=== PATIENT | male | born 1960 | race Two or more races ===

== ENCOUNTER 2019-01-28 18:22 | Inpatient (IN) | payer OTHER ==
[~2019-01-28] VITALS: Ht 172.7 cm; Wt 122.3 kg
[2019-01-28 18:52] LABS: BASOPHILS % (AUTO) 0.2 % (0.0-2.0); EOSINOPHILS % (AUTO) 0.8 % (0.0-6.0); HEMATOCRIT 50 % (39-51); HEMOGLOBIN 16.6 g/dL (13.5-17.5); LYMPHOCYTES # (AUTO) 0.6 /CMM (0.8-4.8); LYMPHOCYTES % (AUTO) 3.3 % (20.0-44.0); MEAN CORPUSCULAR HGB CONC 34 g/dl (31.0-36.0); MEAN CORPUSCULAR VOLUME 83 fL (80-96); MONOCYTES # (AUTO) 1.6 /CMM (0.1-1.30); MONOCYTES % (AUTO) 8.6 % (2.0-12.0); NEUTROPHILS # (AUTO) 16.1 /CMM (1.8-8.9); NEUTROPHILS % (AUTO) 87.1 % (43.0-81.0); PLATELET COUNT (AUTO) 244 /CMM (150-450); RED BLOOD CELL COUNT(AUTO) 5.99 MIL/uL (4.5-6.0); WHITE BLOOD COUNT (AUTO) 18.5 K/uL (4.3-11.0)
[2019-01-28 18:54] LABS: ABG OXYGEN SATURATION 92.9 % (92.0-98.5); ABG PCO2 25.1 mmHg (35.0-45.0); ABG PH 7.498 (7.350-7.450); ABG PO2 59.6 mmHg (75.0-100.0); AaDO2 139.2 mmHg; COHb 0.6 % (0.5-1.5); MetHb 0.2 % (0.0-1.5); O2Hb 92.2 % (94.0-97.0); SITE, ABG Left Radial; VENT MODE, BG Nasal Cannula
[2019-01-28 19:18] LABS: CALCIUM, SERUM 8.3 mg/dL (8.5-10.1); CARBON DIOXIDE 24 mmol/L (21-32); CHLORIDE 90 mmol/L (98-107); CREATININE 1.9 mg/dL (0.6-1.3); SODIUM SERUM 126 mmol/L (136-145); UREA NITROGEN, BLOOD 31 mg/dL (7-18)
[2019-01-28 19:20] LABS: GLUCOSE 465 mg/dL (74-106)
[2019-01-28 19:27] LABS: ALANINE AMINOTRANSFERASE 54 U/L (12-78); ALKALINE PHOSPHATASE 104 U/L (46-116); ASPARTATE AMINOTRANSFERASE 54 U/L (15-37); BILIRUBIN,DIRECT 0.3 mg/dL (0.0-0.2); BILIRUBIN,TOTAL 0.7 mg/dL (0.2-1.0); TOTAL PROTEIN, SERUM 7.7 g/dL (6.4-8.2)
[2019-01-28] MEDS ORDERED: VANCOMYCIN 1 GM in IV D5W 250 ML IV ONE (19:30)
[2019-01-28] MEDS ORDERED: PIPERACILLIN /TAZOBACTAM 2.25 G in IV D5W 50 ML IV ONE (19:30)
[2019-01-28] MEDS ORDERED: VANCOMYCIN 500 MG VIAL ONE (19:46)
[2019-01-28] MEDS ORDERED: VANCOMYCIN 1 GM VIAL ONE (19:49)
[2019-01-28] MEDS ORDERED: IV NS 0.9% 1,000 ML BAG IV ONE (20:00)
[2019-01-28] MEDS ORDERED: PIPERACILLIN /TAZOBACTAM 2.25 G VIAL IV ONE (20:02)
[2019-01-28 21:05] LABS: MAGNESIUM 3.1 mg/dL (1.8-2.4)
[2019-01-28] MEDS ORDERED: *INSULIN REGULAR(HUMULIN R)HUM 100 UNIT/ML VIAL SQ PRN (22:00)
[2019-01-28] MEDS ORDERED: Z GUARD REMEDY 2 OZ OINT TP PRN (22:00)
[2019-01-28] MEDS ORDERED: MAGNESIUM HYDROXIDE 30 ML UDC PO PRN (22:00)
[2019-01-28] MEDS ORDERED: DEXTROSE 50%-WATER 50 ML DISP.SYRIN IV PRN (22:00)
[2019-01-28] MEDS ORDERED: ZOLPIDEM TARTRATE 5 MG TABLET PO PRN (22:00)
[2019-01-28 22:30] VITALS: BP 153/75
[2019-01-28] MEDS ORDERED: ENOXAPARIN SODIUM 40 MG/0.4 ML DISP.SYRIN SQ ONE (22:30)
[2019-01-28] MEDS: IV NS 0.9% 1,000 ML IV PRN (22:48)
[2019-01-28] MEDS: BLOOD SUGAR DIAGNOSTIC 1 EACH STRIP IN SCH (22:58)
[2019-01-28] MEDS: INSULIN REGULAR, HUMAN 100 UNIT/ML 3 ML VIAL SQ PRN (23:01)
[2019-01-28] MEDS ORDERED: PIPERACILLIN /TAZOBACTAM 3.375 G VIAL IV ONE (23:11)
[2019-01-28] MEDS: PIPERACILLIN /TAZOBACTAM 3.375 G in IV D5W 50 ML IV SCH (23:14)
[2019-01-28] MEDS: ACETAMINOPHEN 325 MG TABLET PO PRN (23:14)
[2019-01-28] MEDS ORDERED: INSULIN GLARGINE, 100 UNIT/ML CARTRIDGE SQ ONE ×2 (23:30→23:56)
[2019-01-29] MEDS: PIPERACILLIN /TAZOBACTAM 3.375 G in IV D5W 50 ML IV SCH ×4 (00:03→17:11)
[2019-01-29 00:10] LABS: CALCIUM, SERUM 7.3 mg/dL (8.5-10.1); CREATININE 1.5 mg/dL (0.6-1.3); POTASSIUM 3.7 mmol/L (3.5-5.1)
[2019-01-29 04:00] VITALS: BP 148/80
[2019-01-29] MEDS: IV NS 0.9% 1,000 ML IV PRN ×2 (05:32→17:21)
[2019-01-29] MEDS ORDERED: PIPERACILLIN /TAZOBACTAM 3.375 G VIAL IV ONE (05:38)
[2019-01-29] MEDS ORDERED: FEE PK DOSING 1 MIN EA MC ONE (06:19)
[2019-01-29 07:21] LABS: BASOPHILS % (AUTO) 0.1 % (0.0-2.0); EOSINOPHILS % (AUTO) 0.6 % (0.0-6.0); HEMATOCRIT 45 % (39-51); HEMOGLOBIN 15.4 g/dL (13.5-17.5); LYMPHOCYTES # (AUTO) 0.4 /CMM (0.8-4.8); LYMPHOCYTES % (AUTO) 2.6 % (20.0-44.0); MEAN CORPUSCULAR HGB CONC 34 g/dl (31.0-36.0); MEAN CORPUSCULAR VOLUME 82 fL (80-96); MONOCYTES # (AUTO) 1.7 /CMM (0.1-1.30); MONOCYTES % (AUTO) 10.5 % (2.0-12.0); NEUTROPHILS # (AUTO) 13.9 /CMM (1.8-8.9); NEUTROPHILS % (AUTO) 86.2 % (43.0-81.0); PLATELET COUNT (AUTO) 208 /CMM (150-450); RED BLOOD CELL COUNT(AUTO) 5.48 MIL/uL (4.5-6.0); WHITE BLOOD COUNT (AUTO) 16.1 K/uL (4.3-11.0)
[2019-01-29 07:24] LABS: CALCIUM, SERUM 7.4 mg/dL (8.5-10.1); CREATININE 1.6 mg/dL (0.6-1.3); MAGNESIUM 2.9 mg/dL (1.8-2.4); PHOSPHORUS 2.1 mg/dL (2.5-4.9); POTASSIUM 3.9 mmol/L (3.5-5.1)
[2019-01-29 08:00] VITALS: BP 150/78
[2019-01-29] MEDS ORDERED: VANCOMYCIN 500 MG in IV D5W 100ml IV ONE (08:00)
[2019-01-29] MEDS ORDERED: VANCOMYCIN HCL 1 GM in IV D5W 260 ML IV SCH (08:00)
[2019-01-29] MEDS: BLOOD SUGAR DIAGNOSTIC 1 EACH STRIP IN SCH ×4 (08:24→22:05)
[2019-01-29] MEDS: INSULIN REGULAR, HUMAN 100 UNIT/ML 3 ML VIAL SQ PRN ×4 (08:30→22:08)
[2019-01-29] MEDS: ACETAMINOPHEN 325 MG TABLET PO PRN ×2 (08:57→15:41)
[2019-01-29] MEDS ORDERED: K PHOS NEUTRAL 250 MG TABLET PO ONE (11:00)
[2019-01-29 12:00] VITALS: BP 132/69
[2019-01-29] MEDS ORDERED: ENOXAPARIN SODIUM 30 MG/0.3 ML DISP.SYRIN SQ SCH (12:00)
[2019-01-29] MEDS: VANCOMYCIN 1.25 GM in IV D5W 250 ML IV SCH ×2 (14:30→22:07)
[2019-01-29 16:00] VITALS: BP 140/70
[2019-01-29 20:00] VITALS: BP 144/90
[2019-01-30] VITALS: BP 134/65
[2019-01-30] MEDS: PIPERACILLIN /TAZOBACTAM 3.375 G in IV D5W 50 ML IV SCH ×5 (00:29→23:06)
[2019-01-30] MEDS: ACETAMINOPHEN 325 MG TABLET PO PRN ×2 (01:19→16:33)
[2019-01-30] MEDS: ONDANSETRON HCL/PF 4 MG/2 ML VIAL IVP PRN ×2 (03:47→16:38)
[2019-01-30 04:00] VITALS: BP 130/74
[2019-01-30] MEDS: VANCOMYCIN 1.25 GM in IV D5W 250 ML IV SCH (06:27)
[2019-01-30] MEDS: IV NS 0.9% 1,000 ML IV PRN ×2 (06:52→22:09)
[2019-01-30 07:11] LABS: BASOPHILS % (AUTO) 0.2 % (0.0-2.0); EOSINOPHILS % (AUTO) 0.1 % (0.0-6.0); HEMATOCRIT 44 % (39-51); LYMPHOCYTES # (AUTO) 0.6 /CMM (0.8-4.8); LYMPHOCYTES % (AUTO) 3.8 % (20.0-44.0); MEAN CORPUSCULAR HGB CONC 34 g/dl (31.0-36.0); MEAN CORPUSCULAR VOLUME 83 fL (80-96); MONOCYTES # (AUTO) 1.2 /CMM (0.1-1.30); MONOCYTES % (AUTO) 7.9 % (2.0-12.0); PLATELET COUNT (AUTO) 168 /CMM (150-450); RED BLOOD CELL COUNT(AUTO) 5.36 MIL/uL (4.5-6.0); WHITE BLOOD COUNT (AUTO) 14.8 K/uL (4.3-11.0)
[2019-01-30 07:44] LABS: CALCIUM, SERUM 7.1 mg/dL (8.5-10.1); CREATININE 1.6 mg/dL (0.6-1.3); POTASSIUM 3.6 mmol/L (3.5-5.1)
[2019-01-30 08:00] VITALS: BP 137/71
[2019-01-30] MEDS: BLOOD SUGAR DIAGNOSTIC 1 EACH STRIP IN SCH ×2 (08:16→12:20)
[2019-01-30] MEDS ORDERED: IV NS 0.9% 1,000 ML IV ONE (08:30)
[2019-01-30] MEDS: INSULIN REGULAR, HUMAN 100 UNIT/ML 3 ML VIAL SQ PRN ×3 (09:22→17:42)
[2019-01-30 11:49] LABS: BILIRUBIN,DIRECT 0.2 mg/dL (0.0-0.2); BILIRUBIN,TOTAL 0.5 mg/dL (0.2-1.0)
[2019-01-30] MEDS ORDERED: DEXTROSE 50%-WATER 50 ML DISP.SYRIN IV PRN (12:30)
[2019-01-30 16:00] VITALS: BP 145/71
[2019-01-30] MEDS: BLOOD SUGAR DIAGNOSTIC 1 EACH STRIP VI SCH ×2 (17:18→21:35)
[2019-01-30 19:35] LABS: APPEARANCE,URINE SL CLOUDY (CLEAR); BILIRUBIN,URINE NEGATIVE (NEGATIVE); BLOOD, URINE LARGE Ery/uL (NEGATIVE); COLOR,URINE YELLOW (YELLOW); KETONES,URINE NEGATIVE (NEGATIVE); LEUKOCYTE ESTERASE ,URINE NEGATIVE (NEGATIVE); NITRITE, URINE NEGATIVE (NEGATIVE); PROTEIN,URINE 100 mg/dl (NEGATIVE); UGLUCOSE 250 MG/DL mg/dL (NEGATIVE); UROBILINOGEN,URINE 0.2 EU/dL (0.2)
[2019-01-30 19:48] LABS: BACTERIA,URINE 1+ /HPF (None Seen); COARSE GRANULAR CASTS,URINE 0-2 /LPF (None Seen); SQUAMOUS EPITHELIAL CELL,UR Few /HPF (None Seen); WBC,URINE 0-2 /HPF (0-3)
[2019-01-30 20:00] VITALS: BP 118/71
[2019-01-30] MEDS: *INSULIN REGULAR(HUMULIN R)HUM 100 UNIT/ML VIAL SQ PRN (21:30)
[2019-01-30] MEDS: ENOXAPARIN SODIUM 40 MG/0.4 ML DISP.SYRIN SQ SCH (21:31)
[2019-01-31 02:00] VITALS: BP 120/74
[2019-01-31 04:00] VITALS: BP 143/74
[2019-01-31] MEDS: PIPERACILLIN /TAZOBACTAM 3.375 G in IV D5W 50 ML IV SCH ×4 (05:00→23:34)
[2019-01-31 06:26] LABS: BASOPHILS % (AUTO) 0.3 % (0.0-2.0); EOSINOPHILS % (AUTO) 0.1 % (0.0-6.0); HEMATOCRIT 40 % (39-51); HEMOGLOBIN 13.7 g/dL (13.5-17.5); LYMPHOCYTES # (AUTO) 0.3 /CMM (0.8-4.8); LYMPHOCYTES % (AUTO) 2.8 % (20.0-44.0); MEAN CORPUSCULAR HGB CONC 34 g/dl (31.0-36.0); MEAN CORPUSCULAR VOLUME 81 fL (80-96); MONOCYTES # (AUTO) 0.8 /CMM (0.1-1.30); MONOCYTES % (AUTO) 7.2 % (2.0-12.0); NEUTROPHILS # (AUTO) 10.3 /CMM (1.8-8.9); NEUTROPHILS % (AUTO) 89.6 % (43.0-81.0); PLATELET COUNT (AUTO) 171 /CMM (150-450); WHITE BLOOD COUNT (AUTO) 11.5 K/uL (4.3-11.0)
[2019-01-31 06:40] LABS: CALCIUM, SERUM 6.7 mg/dL (8.5-10.1); CREATININE 1.7 mg/dL (0.6-1.3); MAGNESIUM 2.6 mg/dL (1.8-2.4); PHOSPHORUS 1.9 mg/dL (2.5-4.9); POTASSIUM 3.2 mmol/L (3.5-5.1)
[2019-01-31 08:00] VITALS: BP 146/72
[2019-01-31] MEDS: BLOOD SUGAR DIAGNOSTIC 1 EACH STRIP VI SCH ×4 (08:39→21:04)
[2019-01-31] MEDS: VANCOMYCIN 1.25 GM in IV D5W 250 ML IV SCH (08:39)
[2019-01-31] MEDS: *INSULIN REGULAR(HUMULIN R)HUM 100 UNIT/ML VIAL SQ PRN ×4 (08:47→21:05)
[2019-01-31] MEDS ORDERED: POTASSIUM CHLORIDE 10 MEQ TABLET.SA PO ONE (10:00)
[2019-01-31] MEDS ORDERED: K PHOS NEUTRAL 250 MG TABLET PO ONE (10:30)
[2019-01-31] MEDS: IV NS 0.9% 1,000 ML IV PRN ×2 (12:26→23:34)
[2019-01-31 16:00] VITALS: BP 146/72
[2019-01-31 20:00] VITALS: BP 143/79
[2019-01-31] MEDS: ENOXAPARIN SODIUM 40 MG/0.4 ML DISP.SYRIN SQ SCH (21:07)
[2019-02-01] MEDS: VANCOMYCIN 1.25 GM in IV D5W 250 ML IV SCH (03:29)
[2019-02-01] MEDS: ONDANSETRON HCL/PF 4 MG/2 ML VIAL IVP PRN (03:38)
[2019-02-01 04:00] VITALS: BP 151/79
[2019-02-01] MEDS: PIPERACILLIN /TAZOBACTAM 3.375 G in IV D5W 50 ML IV SCH ×3 (05:00→17:11)
[2019-02-01] MEDS: HYDROCODONE/APAP 5/325MG 1 EACH TABLET PO PRN ×2 (05:11→13:47)
[2019-02-01 06:54] LABS: BASOPHILS % (AUTO) 0.2 % (0.0-2.0); EOSINOPHILS % (AUTO) 0.2 % (0.0-6.0); HEMATOCRIT 40 % (39-51); HEMOGLOBIN 13.6 g/dL (13.5-17.5); LYMPHOCYTES # (AUTO) 0.5 /CMM (0.8-4.8); LYMPHOCYTES % (AUTO) 2.6 % (20.0-44.0); MEAN CORPUSCULAR HGB CONC 34 g/dl (31.0-36.0); MEAN CORPUSCULAR VOLUME 81 fL (80-96); MONOCYTES # (AUTO) 1.3 /CMM (0.1-1.30); MONOCYTES % (AUTO) 6.7 % (2.0-12.0); NEUTROPHILS # (AUTO) 16.9 /CMM (1.8-8.9); NEUTROPHILS % (AUTO) 90.3 % (43.0-81.0); PLATELET COUNT (AUTO) 206 /CMM (150-450); RED BLOOD CELL COUNT(AUTO) 4.86 MIL/uL (4.5-6.0); WHITE BLOOD COUNT (AUTO) 18.7 K/uL (4.3-11.0)
[2019-02-01 07:37] LABS: CALCIUM, SERUM 6.8 mg/dL (8.5-10.1); CREATININE 2.7 mg/dL (0.6-1.3); MAGNESIUM 2.7 mg/dL (1.8-2.4); PHOSPHORUS 2.9 mg/dL (2.5-4.9); POTASSIUM 3.4 mmol/L (3.5-5.1)
[2019-02-01] MEDS: BLOOD SUGAR DIAGNOSTIC 1 EACH STRIP VI SCH ×4 (07:40→21:30)
[2019-02-01 08:00] VITALS: BP 147/74
[2019-02-01] MEDS: INSULIN REGULAR, HUMAN 100 UNIT/ML 3 ML VIAL SQ PRN ×4 (08:16→21:29)
[2019-02-01 12:00] VITALS: BP 135/71
[2019-02-01] MEDS: IV NS 0.9% 1,000 ML IV PRN (13:41)
[2019-02-01] MEDS: METOCLOPRAMIDE HCL 10 MG TABLET PO SCH ×2 (14:33→17:18)
[2019-02-01 15:33] LABS: APPEARANCE,URINE SL CLOUDY (CLEAR); BILIRUBIN,URINE NEGATIVE (NEGATIVE); BLOOD, URINE LARGE Ery/uL (NEGATIVE); COLOR,URINE YELLOW (YELLOW); KETONES,URINE NEGATIVE (NEGATIVE); LEUKOCYTE ESTERASE ,URINE NEGATIVE (NEGATIVE); NITRITE, URINE NEGATIVE (NEGATIVE); PH,URINE 5.5 (5.0-8.0); PROTEIN,URINE >=300 mg/dl (NEGATIVE); UGLUCOSE 250 MG/DL mg/dL (NEGATIVE); UROBILINOGEN,URINE 0.2 EU/dL (0.2)
[2019-02-01 15:41] LABS: BACTERIA,URINE 1+ /HPF (None Seen); RBC,URINE 51-80 /HPF (0-2); SQUAMOUS EPITHELIAL CELL,UR Few /HPF (None Seen); WBC,URINE 0-2 /HPF (0-3)
[2019-02-01 15:42] LABS: COARSE GRANULAR CASTS,URINE 0-2 /LPF (None Seen); URINE AMORPHOUS URATE Few /HPF (None Seen)
[2019-02-01 16:00] VITALS: BP 135/71
[2019-02-01] MEDS: LEVOFLOXACIN 500 MG /D5W 100ML 500 MG in PREMIX 1 EA IV SCH (20:22)
[2019-02-01] MEDS: ENOXAPARIN SODIUM 40 MG/0.4 ML DISP.SYRIN SQ SCH (21:23)
[2019-02-01] MEDS: INSULIN GLARGINE, 100 UNIT/ML CARTRIDGE SQ SCH (21:28)
[2019-02-02] VITALS: BP 147/79
[2019-02-02] MEDS: PIPERACILLIN /TAZOBACTAM 3.375 G in IV D5W 50 ML IV SCH ×3 (00:12→12:17)
[2019-02-02] MEDS: METOCLOPRAMIDE HCL 10 MG TABLET PO SCH ×5 (00:12→23:30)
[2019-02-02] MEDS: IV NS 0.9% 1,000 ML IV PRN ×2 (02:42→14:40)
[2019-02-02 06:57] LABS: BASOPHILS # (AUTO) 0.1 /CMM (0.0-0.2); BASOPHILS % (AUTO) 0.3 % (0.0-2.0); EOSINOPHILS % (AUTO) 0.4 % (0.0-6.0); HEMATOCRIT 39 % (39-51); HEMOGLOBIN 13.1 g/dL (13.5-17.5); LYMPHOCYTES # (AUTO) 0.6 /CMM (0.8-4.8); MEAN CORPUSCULAR HGB CONC 34 g/dl (31.0-36.0); MEAN CORPUSCULAR VOLUME 82 fL (80-96); MONOCYTES # (AUTO) 1.4 /CMM (0.1-1.30); MONOCYTES % (AUTO) 7.6 % (2.0-12.0); NEUTROPHILS # (AUTO) 16.6 /CMM (1.8-8.9); NEUTROPHILS % (AUTO) 88.7 % (43.0-81.0); PLATELET COUNT (AUTO) 194 /CMM (150-450); RED BLOOD CELL COUNT(AUTO) 4.75 MIL/uL (4.5-6.0); WHITE BLOOD COUNT (AUTO) 18.7 K/uL (4.3-11.0)
[2019-02-02] MEDS: BLOOD SUGAR DIAGNOSTIC 1 EACH STRIP VI SCH ×2 (07:40→07:43)
[2019-02-02] MEDS: INSULIN REGULAR, HUMAN 100 UNIT/ML 3 ML VIAL SQ PRN ×4 (07:49→23:32)
[2019-02-02 07:50] VITALS: BP 145/84
[2019-02-02 08:00] VITALS: BP 145/84
[2019-02-02 08:38] LABS: CALCIUM, SERUM 6.9 mg/dL (8.5-10.1); CREATININE 4.3 mg/dL (0.6-1.3); MAGNESIUM 2.9 mg/dL (1.8-2.4); PHOSPHORUS 4.5 mg/dL (2.5-4.9); POTASSIUM 3.5 mmol/L (3.5-5.1)
[2019-02-02] MEDS ORDERED: DEXTROSE 50%-WATER 50 ML DISP.SYRIN IV PRN (12:30)
[2019-02-02 12:42] LABS: APPEARANCE,URINE CLOUDY (CLEAR); BILIRUBIN,URINE NEGATIVE (NEGATIVE); BLOOD, URINE LARGE Ery/uL (NEGATIVE); COLOR,URINE YELLOW (YELLOW); KETONES,URINE NEGATIVE (NEGATIVE); LEUKOCYTE ESTERASE ,URINE NEGATIVE (NEGATIVE); NITRITE, URINE NEGATIVE (NEGATIVE); PH,URINE 5.5 (5.0-8.0); PROTEIN,URINE >=300 mg/dl (NEGATIVE); UGLUCOSE NEGATIVE (NEGATIVE); UROBILINOGEN,URINE 0.2 EU/dL (0.2)
[2019-02-02 12:50] LABS: BACTERIA,URINE Rare /HPF (None Seen); RBC,URINE 51-80 /HPF (0-2); SQUAMOUS EPITHELIAL CELL,UR Few /HPF (None Seen); URINE AMORPHOUS URATE Moderate /HPF (None Seen); WBC,URINE 0-2 /HPF (0-3)
[2019-02-02 12:59] LABS: EOSINOPHIL,URINE None Seen
[2019-02-02 13:04] LABS: CREATININE, URINE 120.8 MG/DL (30.0-125.0)
[2019-02-02] MEDS ORDERED: SIMETHICONE SUSP 40 MG/0.6 ML BOTTLE PO PRN (15:00)
[2019-02-02 16:00] VITALS: BP 167/96
[2019-02-02 17:03] VITALS: BP 155/89
[2019-02-02] MEDS: CEFEPIME 1 GM in IV D5W 50 ML IV SCH (17:33)
[2019-02-02] MEDS: BLOOD SUGAR DIAGNOSTIC 1 EACH STRIP IN SCH ×2 (17:41→23:30)
[2019-02-02] MEDS ORDERED: IV NS 0.9% 1,000 ML IV PRN (18:30)
[2019-02-02 20:00] VITALS: BP_SYST 143; BP_SYST 163; BP_DIAS 73; BP_DIAS 83
[2019-02-02] MEDS: LEVOFLOXACIN 500 MG /D5W 100ML 500 MG in PREMIX 1 EA IV SCH (20:17)
[2019-02-02] MEDS: ENOXAPARIN SODIUM 40 MG/0.4 ML DISP.SYRIN SQ SCH (21:27)
[2019-02-02] MEDS: INSULIN GLARGINE, 100 UNIT/ML CARTRIDGE SQ SCH (21:29)
[2019-02-03] VITALS: BP 148/70
[2019-02-03] MEDS: IV NS 0.9% 1,000 ML IV PRN ×2 (04:16→15:13)
[2019-02-03] MEDS: HYDROCODONE/APAP 5/325MG 1 EACH TABLET PO PRN ×2 (04:49→12:11)
[2019-02-03] MEDS: METOCLOPRAMIDE HCL 10 MG TABLET PO SCH ×3 (05:23→17:32)
[2019-02-03] MEDS: BLOOD SUGAR DIAGNOSTIC 1 EACH STRIP IN SCH ×3 (05:24→17:32)
[2019-02-03] MEDS: INSULIN REGULAR, HUMAN 100 UNIT/ML 3 ML VIAL SQ PRN ×3 (05:26→17:34)
[2019-02-03 06:06] LABS: COMPLEMENT C3, SERUM 146 mg/dL (82-167); COMPLEMENT C4, SERUM 39 mg/dL (14-44)
[2019-02-03 07:13] LABS: BASOPHILS % (AUTO) 0.2 % (0.0-2.0); EOSINOPHILS % (AUTO) 0.4 % (0.0-6.0); HEMATOCRIT 36 % (39-51); HEMOGLOBIN 12.4 g/dL (13.5-17.5); LYMPHOCYTES # (AUTO) 0.7 /CMM (0.8-4.8); LYMPHOCYTES % (AUTO) 3.4 % (20.0-44.0); MEAN CORPUSCULAR HGB CONC 35 g/dl (31.0-36.0); MEAN CORPUSCULAR VOLUME 81 fL (80-96); MONOCYTES # (AUTO) 1.8 /CMM (0.1-1.30); MONOCYTES % (AUTO) 9.4 % (2.0-12.0); NEUTROPHILS # (AUTO) 16.7 /CMM (1.8-8.9); NEUTROPHILS % (AUTO) 86.6 % (43.0-81.0); PLATELET COUNT (AUTO) 283 /CMM (150-450); RED BLOOD CELL COUNT(AUTO) 4.41 MIL/uL (4.5-6.0); WHITE BLOOD COUNT (AUTO) 19.3 K/uL (4.3-11.0)
[2019-02-03 07:37] LABS: BILIRUBIN,TOTAL 0.6 mg/dL (0.2-1.0); CREATININE 6.1 mg/dL (0.6-1.3); MAGNESIUM 2.7 mg/dL (1.8-2.4); PHOSPHORUS 4.8 mg/dL (2.5-4.9); POTASSIUM 3.3 mmol/L (3.5-5.1); TOTAL PROTEIN, SERUM 5.6 g/dL (6.4-8.2)
[2019-02-03 08:00] VITALS: BP 167/84
[2019-02-03 08:07] LABS: ALBUMIN 1.2 g/dL (3.4-5.0)
[2019-02-03 15:13] LABS: *ANA ANTI-CENTROMERE B AB <0.2 AI (0.0-0.9); *ANA ANTI-DNA(DS) AB, QN 2 IU/mL (0-9); *ANA ANTI-JO-1 <0.2 AI (0.0-0.9); *ANA ANTICHROMATIN ANTIBODY <0.2 AI (0.0-0.9); *ANA RNP ANTIBODIES <0.2 AI (0.0-0.9); *ANA SJOGREN'S ANTI-SS-A <0.2 AI (0.0-0.9); *ANA SJOGREN'S ANTI-SS-B <0.2 AI (0.0-0.9); *ANAANTI-SCLERODERMA-70 AB <0.2 AI (0.0-0.9); *ANASMITH AB <0.2 AI (0.0-0.9)
[2019-02-03 16:00] VITALS: BP 169/90
[2019-02-03] MEDS: CEFEPIME 1 GM in IV D5W 50 ML IV SCH (16:24)
[2019-02-03 16:53] LABS: APPEARANCE,URINE CLOUDY (CLEAR); BILIRUBIN,URINE NEGATIVE (NEGATIVE); BLOOD, URINE LARGE Ery/uL (NEGATIVE); COLOR,URINE YELLOW (YELLOW); KETONES,URINE NEGATIVE (NEGATIVE); LEUKOCYTE ESTERASE ,URINE TRACE (NEGATIVE); NITRITE, URINE NEGATIVE (NEGATIVE); PROTEIN,URINE 100 mg/dl (NEGATIVE); UGLUCOSE NEGATIVE (NEGATIVE); UROBILINOGEN,URINE 0.2 EU/dL (0.2)
[2019-02-03 17:23] LABS: CREATININE, URINE 19.7 MG/DL (30.0-125.0); URINE TOTAL PROTEIN 211.9 mg/dL (0-11.9)
[2019-02-03 17:35] LABS: BACTERIA,URINE 3+ /HPF (None Seen); SQUAMOUS EPITHELIAL CELL,UR 0-2 /HPF (None Seen)
[2019-02-03 17:36] LABS: RED BLOOD CELL CASTS,URINE Few /LPF (None Seen); URINE AMORPHOUS URATE Many /HPF (None Seen)
[2019-02-03 17:47] LABS: EOSINOPHIL,URINE None Seen
[2019-02-03] MEDS: LEVOFLOXACIN 500 MG /D5W 100ML 500 MG in PREMIX 1 EA IV SCH (19:40)
[2019-02-03] MEDS: ENOXAPARIN SODIUM 40 MG/0.4 ML DISP.SYRIN SQ SCH (20:26)
[2019-02-03] MEDS: INSULIN GLARGINE, 100 UNIT/ML CARTRIDGE SQ SCH (21:25)
[2019-02-04] MEDS: HYDROCODONE/APAP 5/325MG 1 EACH TABLET PO PRN ×3 (00:35→22:27)
[2019-02-04] MEDS: METOCLOPRAMIDE HCL 10 MG TABLET PO SCH ×5 (00:35→23:52)
[2019-02-04] MEDS: BLOOD SUGAR DIAGNOSTIC 1 EACH STRIP IN SCH ×6 (00:36→23:52)
[2019-02-04] MEDS: INSULIN REGULAR, HUMAN 100 UNIT/ML 3 ML VIAL SQ PRN ×4 (00:37→18:48)
[2019-02-04 04:00] VITALS: BP 157/76
[2019-02-04] MEDS: IV NS 0.9% 1,000 ML IV PRN ×2 (04:16→14:16)
[2019-02-04 07:21] LABS: CALCIUM, SERUM 7.5 mg/dL (8.5-10.1); POTASSIUM 3.7 mmol/L (3.5-5.1)
[2019-02-04 07:30] LABS: CREATININE 7.9 mg/dL (0.6-1.3)
[2019-02-04 12:00] VITALS: BP 168/90
[2019-02-04 12:44] LABS: BASOPHILS # (AUTO) 0.1 /CMM (0.0-0.2); BASOPHILS % (AUTO) 0.3 % (0.0-2.0); EOSINOPHILS % (AUTO) 0.5 % (0.0-6.0); HEMATOCRIT 38 % (39-51); HEMOGLOBIN 12.8 g/dL (13.5-17.5); LYMPHOCYTES # (AUTO) 0.9 /CMM (0.8-4.8); LYMPHOCYTES % (AUTO) 3.8 % (20.0-44.0); MEAN CORPUSCULAR HGB CONC 34 g/dl (31.0-36.0); MEAN CORPUSCULAR VOLUME 82 fL (80-96); MONOCYTES # (AUTO) 2.1 /CMM (0.1-1.30); MONOCYTES % (AUTO) 8.7 % (2.0-12.0); NEUTROPHILS # (AUTO) 20.8 /CMM (1.8-8.9); NEUTROPHILS % (AUTO) 86.7 % (43.0-81.0); PLATELET COUNT (AUTO) 383 /CMM (150-450); RED BLOOD CELL COUNT(AUTO) 4.61 MIL/uL (4.5-6.0)
[2019-02-04 13:04] LABS: BAND % (MANUAL) 5 % (0.0-5.0); LYMPHOCYTES % (MANUAL) 5 % (16-48); MONOCYTES % (MANUAL) 7 % (0-11.0); NEUTROPHILS % (MANUAL) 83 (42-76)
[2019-02-04] MEDS: CEFEPIME 1 GM in IV D5W 50 ML IV SCH (17:51)
[2019-02-04 20:00] VITALS: BP 165/85
[2019-02-04] MEDS: ENOXAPARIN SODIUM 40 MG/0.4 ML DISP.SYRIN SQ SCH (21:00)
[2019-02-04 22:00] VITALS: BP 145/64
[2019-02-04] MEDS: INSULIN GLARGINE, 100 UNIT/ML CARTRIDGE SQ SCH (22:13)
[2019-02-04] MEDS: LEVOFLOXACIN 500 MG /D5W 100ML 500 MG in PREMIX 1 EA IV SCH (22:16)
[2019-02-04 23:21] LABS: BILIRUBIN,TOTAL 0.5 mg/dL (0.2-1.0); CALCIUM, SERUM 7.9 mg/dL (8.5-10.1); CREATININE 7.2 mg/dL (0.6-1.3); MAGNESIUM 2.3 mg/dL (1.8-2.4); PHOSPHORUS 6.3 mg/dL (2.5-4.9); POTASSIUM 3.9 mmol/L (3.5-5.1); TOTAL PROTEIN, SERUM 5.8 g/dL (6.4-8.2)
[2019-02-04 23:22] LABS: ALBUMIN 1.2 g/dL (3.4-5.0)
[2019-02-05] MEDS: INSULIN REGULAR, HUMAN 100 UNIT/ML 3 ML VIAL SQ PRN ×4 (00:01→23:29)
[2019-02-05] MEDS: METOCLOPRAMIDE HCL 10 MG TABLET PO SCH ×4 (05:00→23:18)
[2019-02-05] MEDS: BLOOD SUGAR DIAGNOSTIC 1 EACH STRIP IN SCH ×4 (05:02→23:18)
[2019-02-05 05:48] VITALS: BP 148/86
[2019-02-05 07:18] LABS: BASOPHILS % (AUTO) 0.2 % (0.0-2.0); EOSINOPHILS % (AUTO) 0.3 % (0.0-6.0); HEMATOCRIT 33 % (39-51); HEMOGLOBIN 11.3 g/dL (13.5-17.5); LYMPHOCYTES # (AUTO) 0.6 /CMM (0.8-4.8); LYMPHOCYTES % (AUTO) 2.5 % (20.0-44.0); MEAN CORPUSCULAR HGB CONC 34 g/dl (31.0-36.0); MEAN CORPUSCULAR VOLUME 81 fL (80-96); MONOCYTES # (AUTO) 2.3 /CMM (0.1-1.30); MONOCYTES % (AUTO) 10.5 % (2.0-12.0); NEUTROPHILS # (AUTO) 19.4 /CMM (1.8-8.9); NEUTROPHILS % (AUTO) 86.5 % (43.0-81.0); PLATELET COUNT (AUTO) 384 /CMM (150-450); RED BLOOD CELL COUNT(AUTO) 4.09 MIL/uL (4.5-6.0); WHITE BLOOD COUNT (AUTO) 22.4 K/uL (4.3-11.0)
[2019-02-05 07:48] LABS: CALCIUM, SERUM 7.6 mg/dL (8.5-10.1); MAGNESIUM 2.5 mg/dL (1.8-2.4); PHOSPHORUS 7.2 mg/dL (2.5-4.9)
[2019-02-05 08:00] VITALS: BP 158/79
[2019-02-05 08:27] LABS: BAND % (MANUAL) 5 % (0.0-5.0); LYMPHOCYTES % (MANUAL) 5 % (16-48); MONOCYTES % (MANUAL) 7 % (0-11.0); NEUTROPHILS % (MANUAL) 81 (42-76)
[2019-02-05 08:28] LABS: METAMYELOCYTES % 1 % (0-0); MYELOCYTES % 1 % (0-0)
[2019-02-05] MEDS ORDERED: MIDAZOLAM HCL 5MG/ML VIAL 25 MG/5 ML VIAL IV ONE (13:30)
[2019-02-05] MEDS ORDERED: NALOXONE PREFILLED SYRINGE 2 MG/2 ML SYRINGE IV ONE (13:30)
[2019-02-05] MEDS ORDERED: FENTANYL PF 250MCG/5ML AMPUL IV ONE (13:30)
[2019-02-05] MEDS: IV NS 0.9% 1,000 ML IV PRN (14:25)
[2019-02-05 16:00] VITALS: BP 151/86
[2019-02-05] MEDS: CEFEPIME 1 GM in IV D5W 50 ML IV SCH (17:09)
[2019-02-05 20:00] VITALS: BP 144/100
[2019-02-05] MEDS: LEVOFLOXACIN 500 MG /D5W 100ML 500 MG in PREMIX 1 EA IV SCH (20:02)
[2019-02-05 20:05] VITALS: BP 164/100
[2019-02-05] MEDS: ENOXAPARIN SODIUM 40 MG/0.4 ML DISP.SYRIN SQ SCH (21:57)
[2019-02-05] MEDS: INSULIN GLARGINE, 100 UNIT/ML CARTRIDGE SQ SCH (21:59)
[2019-02-06 04:00] VITALS: BP 127/61
[2019-02-06 05:20] VITALS: BP 127/61
[2019-02-06] MEDS: METOCLOPRAMIDE HCL 10 MG TABLET PO SCH ×4 (05:32→23:23)
[2019-02-06] MEDS: INSULIN REGULAR, HUMAN 100 UNIT/ML 3 ML VIAL SQ PRN ×4 (05:35→23:27)
[2019-02-06] MEDS: BLOOD SUGAR DIAGNOSTIC 1 EACH STRIP IN SCH ×4 (05:46→23:24)
[2019-02-06] MEDS: HYDROCODONE/APAP 5/325MG 1 EACH TABLET PO PRN ×2 (06:39→20:12)
[2019-02-06 07:14] LABS: BASOPHILS % (AUTO) 0.2 % (0.0-2.0); EOSINOPHILS % (AUTO) 0.2 % (0.0-6.0); HEMATOCRIT 34 % (39-51); HEMOGLOBIN 11.4 g/dL (13.5-17.5); LYMPHOCYTES # (AUTO) 0.5 /CMM (0.8-4.8); LYMPHOCYTES % (AUTO) 2.2 % (20.0-44.0); MEAN CORPUSCULAR HGB CONC 34 g/dl (31.0-36.0); MEAN CORPUSCULAR VOLUME 81 fL (80-96); MONOCYTES # (AUTO) 2.1 /CMM (0.1-1.30); NEUTROPHILS % (AUTO) 87.4 % (43.0-81.0); PLATELET COUNT (AUTO) 407 /CMM (150-450); RED BLOOD CELL COUNT(AUTO) 4.18 MIL/uL (4.5-6.0); WHITE BLOOD COUNT (AUTO) 20.6 K/uL (4.3-11.0)
[2019-02-06 07:26] LABS: CALCIUM, SERUM 7.3 mg/dL (8.5-10.1); MAGNESIUM 2.4 mg/dL (1.8-2.4); PHOSPHORUS 6.8 mg/dL (2.5-4.9); POTASSIUM 3.9 mmol/L (3.5-5.1)
[2019-02-06 07:33] LABS: CREATININE 8.4 mg/dL (0.6-1.3)
[2019-02-06 08:00] VITALS: BP 146/63
[2019-02-06 09:09] LABS: BAND % (MANUAL) 2 % (0.0-5.0); LYMPHOCYTES % (MANUAL) 4 % (16-48); MONOCYTES % (MANUAL) 5 % (0-11.0); MYELOCYTES % 2 % (0-0); NEUTROPHILS % (MANUAL) 87 (42-76)
[2019-02-06 12:10] LABS: *ANCANTIMYELOPEROXIDASE (MPO) <9.0 U/mL (0.0-9.0); *ANCANTIPROTEINASE 3 (PR-3) AB <3.5 U/mL (0.0-3.5)
[2019-02-06 13:06] LABS: *ANCA ATYPICAL p-ANCA <1:20 titer (Neg:<1:20); *ANCA CYTOPLASMIC (C-ANCA) <1:20 titer (Neg:<1:20); *ANCA PERINUCLEAR (P-ANCA) <1:20 titer (Neg:<1:20)
[2019-02-06] MEDS ORDERED: ALPRAZOLAM 0.5 MG TABLET PO SCH (14:00)
[2019-02-06 16:00] VITALS: BP 161/79
[2019-02-06] MEDS: CEFEPIME 1 GM in IV D5W 50 ML IV SCH (16:39)
[2019-02-06] MEDS: LEVOFLOXACIN 500 MG /D5W 100ML 500 MG in PREMIX 1 EA IV SCH (19:59)
[2019-02-06 20:00] VITALS: BP 181/91
[2019-02-06 20:05] VITALS: BP 155/88
[2019-02-06] MEDS: HEPARIN SODIUM, PORCINE 5000 UNITS/1 ML VIAL SQ SCH (20:29)
[2019-02-06] MEDS: INSULIN GLARGINE, 100 UNIT/ML CARTRIDGE SQ SCH (21:26)
[2019-02-07] MEDS: ONDANSETRON HCL/PF 4 MG/2 ML VIAL IVP PRN ×2 (01:45→20:10)
[2019-02-07] MEDS: HYDROCODONE/APAP 5/325MG 1 EACH TABLET PO PRN ×3 (01:54→17:57)
[2019-02-07 04:00] VITALS: BP 154/86
[2019-02-07] MEDS: METOCLOPRAMIDE HCL 10 MG TABLET PO SCH ×3 (05:30→16:53)
[2019-02-07] MEDS: INSULIN REGULAR, HUMAN 100 UNIT/ML 3 ML VIAL SQ PRN ×3 (05:32→17:00)
[2019-02-07] MEDS: BLOOD SUGAR DIAGNOSTIC 1 EACH STRIP IN SCH ×3 (05:39→17:08)
[2019-02-07 07:36] LABS: CALCIUM, SERUM 7.4 mg/dL (8.5-10.1); POTASSIUM 3.8 mmol/L (3.5-5.1)
[2019-02-07 07:37] LABS: CREATININE 8.6 mg/dL (0.6-1.3)
[2019-02-07 07:42] LABS: BASOPHILS # (AUTO) 0.1 /CMM (0.0-0.2); BASOPHILS % (AUTO) 0.5 % (0.0-2.0); EOSINOPHILS % (AUTO) 0.5 % (0.0-6.0); HEMATOCRIT 30 % (39-51); HEMOGLOBIN 10.2 g/dL (13.5-17.5); LYMPHOCYTES # (AUTO) 0.6 /CMM (0.8-4.8); LYMPHOCYTES % (AUTO) 2.8 % (20.0-44.0); MEAN CORPUSCULAR HGB CONC 34 g/dl (31.0-36.0); MEAN CORPUSCULAR VOLUME 82 fL (80-96); MONOCYTES % (AUTO) 9.9 % (2.0-12.0); NEUTROPHILS # (AUTO) 17.1 /CMM (1.8-8.9); NEUTROPHILS % (AUTO) 86.3 % (43.0-81.0); PLATELET COUNT (AUTO) 357 /CMM (150-450); WHITE BLOOD COUNT (AUTO) 19.8 K/uL (4.3-11.0)
[2019-02-07 08:00] VITALS: BP 158/88
[2019-02-07] MEDS: HEPARIN SODIUM, PORCINE 5000 UNITS/1 ML VIAL SQ SCH ×2 (09:20→20:09)
[2019-02-07 16:00] VITALS: BP 171/69
[2019-02-07] MEDS: CEFEPIME 1 GM in IV D5W 50 ML IV SCH (16:09)
[2019-02-07] MEDS: LEVOFLOXACIN (250MG) 250 MG TABLET PO SCH (18:25)
[2019-02-07 20:00] VITALS: BP 141/75
[2019-02-07] MEDS: MAG HYDROX/AL HYDROX/SIMETH 30 ML UDC PO PRN (20:10)
[2019-02-07] MEDS: INSULIN GLARGINE, 100 UNIT/ML CARTRIDGE SQ SCH (22:13)
[2019-02-08] MEDS: BLOOD SUGAR DIAGNOSTIC 1 EACH STRIP IN SCH ×4 (00:10→17:50)
[2019-02-08] MEDS: METOCLOPRAMIDE HCL 10 MG TABLET PO SCH ×4 (00:11→17:46)
[2019-02-08] MEDS: INSULIN REGULAR, HUMAN 100 UNIT/ML 3 ML VIAL SQ PRN ×4 (00:13→17:57)
[2019-02-08] MEDS: HYDROCODONE/APAP 5/325MG 1 EACH TABLET PO PRN ×3 (00:20→21:53)
[2019-02-08 02:00] VITALS: BP 145/80
[2019-02-08] MEDS: ACETAMINOPHEN 325 MG TABLET PO PRN (02:14)
[2019-02-08] MEDS: MAG HYDROX/AL HYDROX/SIMETH 30 ML UDC PO PRN ×3 (02:18→22:27)
[2019-02-08 04:00] VITALS: BP 145/80
[2019-02-08 06:59] LABS: BASOPHILS % (AUTO) 0.3 % (0.0-2.0); EOSINOPHILS % (AUTO) 0.4 % (0.0-6.0); HEMATOCRIT 29 % (39-51); HEMOGLOBIN 9.8 g/dL (13.5-17.5); LYMPHOCYTES # (AUTO) 0.7 /CMM (0.8-4.8); LYMPHOCYTES % (AUTO) 3.7 % (20.0-44.0); MEAN CORPUSCULAR HGB CONC 34 g/dl (31.0-36.0); MEAN CORPUSCULAR VOLUME 82 fL (80-96); MONOCYTES # (AUTO) 1.8 /CMM (0.1-1.30); MONOCYTES % (AUTO) 9.7 % (2.0-12.0); NEUTROPHILS % (AUTO) 85.9 % (43.0-81.0); PLATELET COUNT (AUTO) 366 /CMM (150-450); RED BLOOD CELL COUNT(AUTO) 3.54 MIL/uL (4.5-6.0); WHITE BLOOD COUNT (AUTO) 18.6 K/uL (4.3-11.0)
[2019-02-08 07:15] LABS: CALCIUM, SERUM 7.4 mg/dL (8.5-10.1); POTASSIUM 4.1 mmol/L (3.5-5.1)
[2019-02-08 08:00] VITALS: BP 153/79
[2019-02-08] MEDS: HEPARIN SODIUM, PORCINE 5000 UNITS/1 ML VIAL SQ SCH ×2 (09:47→21:18)
[2019-02-08] MEDS: CEFEPIME 1 GM in IV D5W 50 ML IV SCH (16:21)
[2019-02-08 20:00] VITALS: BP 153/67
[2019-02-09] MEDS: BLOOD SUGAR DIAGNOSTIC 1 EACH STRIP IN SCH ×4 (00:10→18:00)
[2019-02-09] MEDS: METOCLOPRAMIDE HCL 10 MG TABLET PO SCH ×5 (00:11→23:27)
[2019-02-09] MEDS: INSULIN GLARGINE, 100 UNIT/ML CARTRIDGE SQ SCH ×2 (00:16→21:59)
[2019-02-09] MEDS: INSULIN REGULAR, HUMAN 100 UNIT/ML 3 ML VIAL SQ PRN ×4 (00:17→18:00)
[2019-02-09] MEDS: HYDROCODONE/APAP 5/325MG 1 EACH TABLET PO PRN ×4 (01:58→21:37)
[2019-02-09 04:09] VITALS: BP 136/70
[2019-02-09] MEDS: ACETAMINOPHEN 325 MG TABLET PO PRN ×2 (04:22→10:55)
[2019-02-09] MEDS: MAG HYDROX/AL HYDROX/SIMETH 30 ML UDC PO PRN (05:09)
[2019-02-09 06:26] LABS: BASOPHILS % (AUTO) 0.3 % (0.0-2.0); EOSINOPHILS % (AUTO) 0.4 % (0.0-6.0); HEMATOCRIT 28 % (39-51); HEMOGLOBIN 9.7 g/dL (13.5-17.5); LYMPHOCYTES # (AUTO) 0.5 /CMM (0.8-4.8); MEAN CORPUSCULAR HGB CONC 34 g/dl (31.0-36.0); MEAN CORPUSCULAR VOLUME 81 fL (80-96); MONOCYTES # (AUTO) 1.7 /CMM (0.1-1.30); MONOCYTES % (AUTO) 10.4 % (2.0-12.0); NEUTROPHILS # (AUTO) 13.8 /CMM (1.8-8.9); NEUTROPHILS % (AUTO) 85.9 % (43.0-81.0); PLATELET COUNT (AUTO) 340 /CMM (150-450); RED BLOOD CELL COUNT(AUTO) 3.49 MIL/uL (4.5-6.0); WHITE BLOOD COUNT (AUTO) 16.1 K/uL (4.3-11.0)
[2019-02-09 07:15] LABS: CALCIUM, SERUM 7.4 mg/dL (8.5-10.1); MAGNESIUM 2.4 mg/dL (1.8-2.4); PHOSPHORUS 6.1 mg/dL (2.5-4.9); POTASSIUM 4.3 mmol/L (3.5-5.1)
[2019-02-09 08:00] VITALS: BP 151/74
[2019-02-09] MEDS: HEPARIN SODIUM, PORCINE 5000 UNITS/1 ML VIAL SQ SCH ×2 (08:04→21:00)
[2019-02-09] MEDS: ALBUTEROL FS 2.5 MG/0.5 ML VIAL.NEB NEB PRN ×2 (08:06→11:34)
[2019-02-09] MEDS: IPRATROPIUM NEB FS 0.5 MG/2.5 ML AMPUL.NEB NEB PRN ×2 (08:06→11:34)
[2019-02-09 08:54] LABS: CREATININE 9.3 mg/dL (0.6-1.3)
[2019-02-09] MEDS: ALBUTEROL FS 2.5 MG/0.5 ML VIAL.NEB NEB SCH ×3 (12:00→20:03)
[2019-02-09] MEDS ORDERED: DEXT50DI8 IV (12:03)
[2019-02-09] MEDS ORDERED: Insulin Glargine,Hum SQ (12:03)
[2019-02-09] MEDS ORDERED: Levofloxacin (250MG) PO (12:03)
[2019-02-09] MEDS ORDERED: HYDR-3972 PO (12:03)
[2019-02-09] MEDS ORDERED: CEFE1PIG3 IV (12:03)
[2019-02-09] MEDS ORDERED: INSU100V28 SQ (12:03)
[2019-02-09] MEDS ORDERED: ALBU2.5V13 NEB (12:03)
[2019-02-09] MEDS ORDERED: Blood Sugar Diagnostic IN (12:03)
[2019-02-09] MEDS ORDERED: IPRA0.2S9 NEB (12:03)
[2019-02-09] MEDS: IPRATROPIUM NEB FS 0.5 MG/2.5 ML AMPUL.NEB NEB SCH ×2 (15:35→20:03)
[2019-02-09 16:00] VITALS: BP 154/86
[2019-02-09] MEDS: CEFEPIME 1 GM in IV D5W 50 ML IV SCH (16:19)
[2019-02-09] MEDS: LEVOFLOXACIN (250MG) 250 MG TABLET PO SCH (17:59)
[2019-02-09 20:00] VITALS: BP 166/85
[2019-02-10] MEDS: BLOOD SUGAR DIAGNOSTIC 1 EACH STRIP IN SCH ×5 (00:17→23:59)
[2019-02-10] MEDS: INSULIN REGULAR, HUMAN 100 UNIT/ML 3 ML VIAL SQ PRN ×3 (00:18→17:51)
[2019-02-10 04:00] VITALS: BP 159/92
[2019-02-10] MEDS: METOCLOPRAMIDE HCL 10 MG TABLET PO SCH ×3 (05:07→17:17)
[2019-02-10 07:58] LABS: BASOPHILS # (AUTO) 0.1 /CMM (0.0-0.2); BASOPHILS % (AUTO) 0.4 % (0.0-2.0); EOSINOPHILS % (AUTO) 0.1 % (0.0-6.0); HEMATOCRIT 29 % (39-51); HEMOGLOBIN 9.5 g/dL (13.5-17.5); LYMPHOCYTES # (AUTO) 0.5 /CMM (0.8-4.8); LYMPHOCYTES % (AUTO) 2.6 % (20.0-44.0); MEAN CORPUSCULAR HGB CONC 33 g/dl (31.0-36.0); MEAN CORPUSCULAR VOLUME 82 fL (80-96); MONOCYTES # (AUTO) 1.7 /CMM (0.1-1.30); MONOCYTES % (AUTO) 8.8 % (2.0-12.0); NEUTROPHILS # (AUTO) 17.4 /CMM (1.8-8.9); NEUTROPHILS % (AUTO) 88.1 % (43.0-81.0); PLATELET COUNT (AUTO) 228 /CMM (150-450); RED BLOOD CELL COUNT(AUTO) 3.48 MIL/uL (4.5-6.0); WHITE BLOOD COUNT (AUTO) 19.7 K/uL (4.3-11.0)
[2019-02-10] MEDS: IPRATROPIUM NEB FS 0.5 MG/2.5 ML AMPUL.NEB NEB SCH ×3 (08:03→19:34)
[2019-02-10] MEDS: ALBUTEROL FS 2.5 MG/0.5 ML VIAL.NEB NEB SCH ×3 (08:03→19:34)
[2019-02-10 08:13] LABS: CALCIUM, SERUM 7.5 mg/dL (8.5-10.1); POTASSIUM 4.9 mmol/L (3.5-5.1)
[2019-02-10 08:18] LABS: CREATININE 10.9 mg/dL (0.6-1.3)
[2019-02-10] MEDS ORDERED: PANTOPRAZOLE 40 MG VIAL IV ONE (08:30)
[2019-02-10] MEDS: ONDANSETRON HCL/PF 4 MG/2 ML VIAL IVP PRN (08:53)
[2019-02-10] MEDS: HEPARIN SODIUM, PORCINE 5000 UNITS/1 ML VIAL SQ SCH ×2 (08:58→22:39)
[2019-02-10] MEDS ORDERED: ANESTHESIA TRAY IN PYXIS 1 EA TRAY MC ONE (09:37)
[2019-02-10] MEDS ORDERED: LIDOCAINE HCL/MPF 1% 30 ML VIAL IJ ONE (09:38)
[2019-02-10] MEDS ORDERED: HEPARIN SODIUM, PORCINE 1,000 UNIT/ML VIAL ONE (09:38)
[2019-02-10] MEDS ORDERED: FENTANYL PF 100MCG/2ML AMPUL ONE (10:53)
[2019-02-10] MEDS ORDERED: BUPIVACAINE 0.5 % PF 150 MG/30 ML VIAL ONE (10:54)
[2019-02-10 16:00] VITALS: BP 151/95
[2019-02-10] MEDS: CEFEPIME 1 GM in IV D5W 50 ML IV SCH (17:11)
[2019-02-10] MEDS: HYDROCODONE/APAP 5/325MG 1 EACH TABLET PO PRN (17:32)
[2019-02-10] MEDS: ANCEF 1 GM/50 ML D5W IV SCH ×2 (17:51)
[2019-02-10 20:00] VITALS: BP 163/75
[2019-02-10] MEDS: INSULIN GLARGINE, 100 UNIT/ML CARTRIDGE SQ SCH (22:40)
[2019-02-11] VITALS: BP 152/85
[2019-02-11] MEDS: METOCLOPRAMIDE HCL 10 MG TABLET PO SCH ×4 (00:05→16:43)
[2019-02-11] MEDS: HYDROCODONE/APAP 5/325MG 1 EACH TABLET PO PRN ×4 (00:06→16:43)
[2019-02-11] MEDS: MAG HYDROX/AL HYDROX/SIMETH 30 ML UDC PO PRN (00:06)
[2019-02-11] MEDS: INSULIN REGULAR, HUMAN 100 UNIT/ML 3 ML VIAL SQ PRN ×3 (00:16→16:55)
[2019-02-11] MEDS: ANCEF 1 GM/50 ML D5W IV SCH ×4 (02:51→11:35)
[2019-02-11] MEDS: ACETAMINOPHEN 325 MG TABLET PO PRN (02:57)
[2019-02-11 03:09] VITALS: BP 157/90
[2019-02-11] MEDS: BLOOD SUGAR DIAGNOSTIC 1 EACH STRIP IN SCH ×2 (05:54→12:02)
[2019-02-11 07:11] LABS: CALCIUM, SERUM 7.9 mg/dL (8.5-10.1); MAGNESIUM 2.3 mg/dL (1.8-2.4); PHOSPHORUS 7.1 mg/dL (2.5-4.9); POTASSIUM 4.9 mmol/L (3.5-5.1)
[2019-02-11 07:13] LABS: BASOPHILS % (AUTO) 0.2 % (0.0-2.0); EOSINOPHILS % (AUTO) 0.4 % (0.0-6.0); HEMATOCRIT 25 % (39-51); HEMOGLOBIN 8.5 g/dL (13.5-17.5); LYMPHOCYTES # (AUTO) 0.5 /CMM (0.8-4.8); LYMPHOCYTES % (AUTO) 3.8 % (20.0-44.0); MEAN CORPUSCULAR HGB CONC 34 g/dl (31.0-36.0); MEAN CORPUSCULAR VOLUME 82 fL (80-96); MONOCYTES # (AUTO) 1.3 /CMM (0.1-1.30); MONOCYTES % (AUTO) 9.8 % (2.0-12.0); NEUTROPHILS # (AUTO) 11.2 /CMM (1.8-8.9); NEUTROPHILS % (AUTO) 85.8 % (43.0-81.0); PLATELET COUNT (AUTO) 188 /CMM (150-450); RED BLOOD CELL COUNT(AUTO) 3.06 MIL/uL (4.5-6.0)
[2019-02-11 07:18] LABS: CREATININE 10.2 mg/dL (0.6-1.3)
[2019-02-11] MEDS: IPRATROPIUM NEB FS 0.5 MG/2.5 ML AMPUL.NEB NEB SCH ×2 (07:33→13:30)
[2019-02-11] MEDS: ALBUTEROL FS 2.5 MG/0.5 ML VIAL.NEB NEB SCH ×2 (07:33→13:30)
[2019-02-11 08:00] VITALS: BP 174/93
[2019-02-11] MEDS: HEPARIN SODIUM, PORCINE 5000 UNITS/1 ML VIAL SQ SCH (09:00)
[2019-02-11 16:00] VITALS: BP 162/80
[2019-02-11 16:03] VITALS: BP 162/80
== END 2019-02-11 17:23 | DRG 720 ==
LOC: ER 18:29 → TELE-TD 21:19 → TELE1 22:14 → MEDSG1 01-30 11:18
PROVIDERS: ADMIT Hospitalist; ATTEND Nurse Practitioner Acute Care
PROC: 5A1D70Z Performance of Urinary Filtration, Intermittent, Less than 6 Hours Per Day (ICD-10-PCS; 2019-02-04)
PROC: 5A1D70Z Performance of Urinary Filtration, Intermittent, Less than 6 Hours Per Day (ICD-10-PCS; principal; 2019-02-05)
PROC: 0TB03ZX Excision of Right Kidney, Percutaneous Approach, Diagnostic (ICD-10-PCS; principal; 2019-02-05)
PROC: 06HM33Z Insertion of Infusion Device into Right Femoral Vein, Percutaneous Approach (ICD-10-PCS; 2019-02-06)
PROC: 5A1D70Z Performance of Urinary Filtration, Intermittent, Less than 6 Hours Per Day (ICD-10-PCS; 2019-02-06)
PROC: 5A1D70Z Performance of Urinary Filtration, Intermittent, Less than 6 Hours Per Day (ICD-10-PCS; 2019-02-08)
PROC: 5A1D70Z Performance of Urinary Filtration, Intermittent, Less than 6 Hours Per Day (ICD-10-PCS; 2019-02-10)
PROC: 02H633Z Insertion of Infusion Device into Right Atrium, Percutaneous Approach (ICD-10-PCS; 2019-02-10)
PROC: B543ZZA Ultrasonography of Right Jugular Veins, Guidance (ICD-10-PCS; 2019-02-10)
PROC: 0JH63XZ Insertion of Tunneled Vascular Access Device into Chest Subcutaneous Tissue and Fascia, Percutaneous Approach (ICD-10-PCS; 2019-02-10)
DX: A41.9 Sepsis, unspecified organism (principal); I21.A1 Myocardial infarction type 2; E43 Unspecified severe protein-calorie malnutrition; N17.0 Acute kidney failure with tubular necrosis; J96.01 Acute respiratory failure with hypoxia; G92 Toxic encephalopathy; J15.9 Unspecified bacterial pneumonia; E11.22 Type 2 diabetes mellitus with diabetic chronic kidney disease; J32.0 Chronic maxillary sinusitis; E86.0 Dehydration; E87.2 Acidosis; J32.3 Chronic sphenoidal sinusitis; E66.9 Obesity, unspecified; Z68.35 Body mass index [BMI] 35.0-35.9, adult; J98.11 Atelectasis; D72.829 Elevated white blood cell count, unspecified; E86.9 Volume depletion, unspecified; E22.2 Syndrome of inappropriate secretion of antidiuretic hormone; E11.65 Type 2 diabetes mellitus with hyperglycemia; E86.1 Hypovolemia; N18.9 Chronic kidney disease, unspecified; R65.20 Severe sepsis without septic shock
CPT/HCPCS: 36415; 36600; 70450-TC; 71045-TC; 74018; 76770-TC; 76942-TC; 77012-TC; 80048-TC; 80053-TC; 80061-TC; 80076-TC; 80202-TC; 80305; 81000-TC; 82247-TC; 82248-TC; 82570-TC; 82962-TC; 83520; 83605-TC; 83735-TC; 84100-TC; 84155-TC; 84300-TC; 84484-TC; 85025-TC; 85610-TC; 85652-TC; 85730-TC; 86060; 86225; 86235; 86256; 86706; 86803; 86850-TC; 87040-TC; 87081-TC; 87086-TC; 87340; 90935-TC; 94799-TC; 97110-TC; 97116-TC; 97530-TC; A4216; A4217; C1750; C9113; G0378; G0480; J0690; J0692; J1644; J1650; J1815; J1956; J2250; J2310; J2405; J2543; J3010; J3370; J3490; J7030; J7050; J7060; J8597

== ENCOUNTER 2019-02-25 20:39 | Inpatient (IN) | payer OTHER ==
[~2019-02-25] VITALS: Ht 170.2 cm; Wt 126.6 kg
[~2019-02-25 20:39] MED LIST: ALBU2.5V13 NEB; Blood Sugar Diagnostic IN; CEFE1PIG3 IV; DEXT50DI8 IV; HYDR-3972 PO; INSU100V28 SQ; IPRA0.2S9 NEB; Insulin Glargine,Hum SQ; Levofloxacin (250MG) PO
--- NOTE | 2019-02-25 20:55 | NUR ---
PT ZACK FROM [facility] C/C N/V D/T MISSING DIALYSIS TUESDAY AFEBRILE. PT AAOX4, VSS, BREATHING EVEN AND UNLABORED ON ROOM AIR W/ NAD NOTED. PT CONNECTED TO THE MONITOR AND POX
--- NOTE | 2019-02-25 20:56 | NUR ---
DR WEAVER AT BEDSIDE
--- NOTE | 2019-02-25 21:00 | NUR ---
CHICKEN TENDER AT BEDSIDE FOR BLOOD DRAW
--- NOTE | 2019-02-25 21:26 | NUR ---
XRAY AT BEDSIDE
[2019-02-25 21:47] LABS: BASOPHILS # (AUTO) 0.2 /CMM (0.0-0.2); BASOPHILS % (AUTO) 0.9 % (0.0-2.0); EOSINOPHILS % (AUTO) 3.9 % (0.0-6.0); LYMPHOCYTES % (AUTO) 5.6 % (20.0-44.0); MEAN CORPUSCULAR HGB CONC 32 g/dl (31.0-36.0); MEAN CORPUSCULAR VOLUME 85 fL (80-96); MONOCYTES # (AUTO) 1.6 /CMM (0.1-1.30); MONOCYTES % (AUTO) 9.5 % (2.0-12.0); NEUTROPHILS # (AUTO) 13.9 /CMM (1.8-8.9); NEUTROPHILS % (AUTO) 80.1 % (43.0-81.0); PLATELET COUNT (AUTO) 359 /CMM (150-450); RED BLOOD CELL COUNT(AUTO) 2.04 MIL/uL (4.5-6.0); WHITE BLOOD COUNT (AUTO) 17.3 K/uL (4.3-11.0)
[2019-02-25 21:50] LABS: HEMATOCRIT 17 % (39-51); HEMOGLOBIN 5.6 g/dL (13.5-17.5)
[2019-02-25 22:05] LABS: ALBUMIN 1.9 g/dL (3.4-5.0); BILIRUBIN,DIRECT 0.1 mg/dL (0.0-0.2); BILIRUBIN,TOTAL 0.2 mg/dL (0.2-1.0); CALCIUM, SERUM 8.8 mg/dL (8.5-10.1); POTASSIUM 6.1 mmol/L (3.5-5.1); TOTAL PROTEIN, SERUM 6.6 g/dL (6.4-8.2)
[2019-02-25 22:07] LABS: CREATININE 11.5 mg/dL (0.6-1.3)
--- NOTE | 2019-02-25 23:40 | NUR ---
Patient is resting comfortably in bed with eyes closed. Easily aroused. VSS
--- NOTE | 2019-02-26 | NUR ---
CONSENT OBTAINED FOR BLOOD TRANSFUSION
--- NOTE | 2019-02-26 00:32 | NUR ---
Consent signed by Mr. Obrien agreeing to administration of blood. Patient or responsible alliance party informed of potential complications associated with blood transfusion. Information on unit of blood checked against patient wristband at bedside by two nurses. All information matches. Patient made aware of need to notify nurse at once if begins to experience itching, shortness of breath, flushing, feeling of impending doom, or other symptoms not previously present.
[2019-02-26 00:53] LABS: EOSINOPHILS % (MANUAL) 5 % (0-4); LYMPHOCYTES % (MANUAL) 3 % (16-48); METAMYELOCYTES % 1 % (0-0); MONOCYTES % (MANUAL) 11 % (0-11.0); NEUTROPHILS % (MANUAL) 80 (42-76)
--- NOTE | 2019-02-26 01:18 | NUR ---
Patient is resting comfortably in bed with eyes closed. Easily aroused. VSS
--- NOTE | 2019-02-26 02:25 | NUR ---
2ND UNIT PRBC RUNNING. NO COMPLAINTS AT THIS TIME. PT STABLE
--- NOTE | 2019-02-26 03:35 | NUR ---
BLOOD TRANSFUSION COMPLETED. PT STABLE. NO COMPLAINTS AT THIS TIME. NO ALLERGIC REACTIONS NOTED.
--- NOTE | 2019-02-26 05:02 | NUR ---
PER HOUSE SUP. BEDS WILL BE AVAILABLE IN THE MORNING.
--- NOTE | 2019-02-26 06:33 | NUR ---
Patient is resting comfortably in bed with eyes closed. Easily aroused. VSS
--- NOTE | 2019-02-26 07:46 | NUR ---
BED 320-1
--- NOTE | 2019-02-26 07:51 | NUR ---
report given to Zaid PALOMO for MESSI.
--- NOTE | 2019-02-26 08:30 | NUR ---
CHILD CARE LEAD TEACHER NOTES PATIENT ADMITTED TO UNIT, REPORT RECEIVED FROM PATRICIA PALOMO. PATIENT A/O X 4. NO ACUTE DISTRESS. DENIES ANY PAIN OR DISCOMFORT. NO CHANGES IN LOC NOTED. HEDDLER IN PLACE. SR 78. NOTED WITH PERMACATH ON RIGHT CHEST. NO BLEEDING NOTED ON SITE. PATIENT RECEIVED 2 UNITS PRBC AT ER PER REPORT. PATIENT ADMITTED UNDER MEDICAL SUPERVISION OF DR RODRIGUEZ, AWARE OF PATIENT ARRIVAL. AWAITING ADMITTING ORDERS. PATIENT ORIENTED TO UNIT, STAFF, PLAN AND OF CARE AND VERBALIZED UNDERSTANDING. DR MARCIAL AWARE OF PATIENT ARRIVAL WELL. WILL CONTINUE TO MONITOR ACCORDINGLY. BED LOCKED AND IN LOW POSITION. SIDE RAILS UP X 3. CALL LIGHT WITHIN EASY REACH
--- NOTE | 2019-02-26 08:38 | NUR ---
Wheeled patient via gurney accompanied by RN and emt in no distress, Zaid RN at bedside to assume care.
--- NOTE | 2019-02-26 08:40 | NUR ---
MS RN NOTES NOTED GUNN CATH IN PLACE WITH YELLOW URINE OUTPUT NOTED IN COLLECTING BAG
--- NOTE | 2019-02-26 10:00 | NUR ---
MS RN NOTES PATIENT NOTED WITH ANOTHER PERMACATH ON RIGHT FEMORAL. DR MARCIAL PRESENT AT UNIT AND MADE AWARE, NO NEW ORDERS AT THIS TIME. PATIENT TO HAVE HD TODAY. SPOKE WITH HD RN AND REQUESTED BP MEDICATIONS TO BE HELD, MD AWARE AND OK. PATIENT MADE AWARE AND VERBALIZED UNDERSTANDING. WILL CONTINUE TO MONITOR
[2019-02-26] MEDS ORDERED: DOCU-141 PO (11:22)
[2019-02-26] MEDS ORDERED: INSU100V3 SQ (11:22)
[2019-02-26] MEDS ORDERED: ACET325T53 PO (11:22)
[2019-02-26] MEDS ORDERED: METO25TA6 PO (11:22)
[2019-02-26] MEDS ORDERED: SENN-261 PO (11:22)
[2019-02-26] MEDS ORDERED: AMIN887L PO (11:22)
[2019-02-26] MEDS ORDERED: ACET325T53 MC (11:22)
[2019-02-26] MEDS ORDERED: SEVE800T8 PO (11:22)
[2019-02-26] MEDS ORDERED: CHOL200059 PO (11:22)
[2019-02-26] MEDS ORDERED: ALBU2.5V11 INH (11:22)
[2019-02-26] MEDS ORDERED: IPRA0.2S49 IH (11:22)
[2019-02-26] MEDS ORDERED: BISA10SU61 RC (11:22)
[2019-02-26] MEDS ORDERED: MAGN400O6 PO (11:22)
[2019-02-26] MEDS ORDERED: FURO80TA85 PO (11:22)
[2019-02-26] MEDS ORDERED: IPRATROPIUM NEB FS 0.5 MG/2.5 ML AMPUL.NEB IH PRN (12:30)
[2019-02-26] MEDS ORDERED: DEXTROSE 50%-WATER 50 ML DISP.SYRIN IV PRN (12:30)
[2019-02-26] MEDS ORDERED: ALBUTEROL FS 2.5 MG/3 ML VIAL.NEB IH PRN (12:30)
[2019-02-26] MEDS ORDERED: BISACODYL SUPP (10 MG) 10 MG/SUPP.RECT SUPP.RECT RC PRN (12:30)
[2019-02-26] MEDS: METOPROLOL TARTRATE 25 MG TABLET PO SCH ×2 (13:00→21:58)
[2019-02-26] MEDS ORDERED: PROSTAT (PYXIS) 30 ML UDC PO SCH (13:00)
[2019-02-26] MEDS: SEVELAMER CARBONATE 800 MG TABLET PO SCH ×2 (13:41→17:21)
[2019-02-26 16:00] VITALS: BP 160/90
[2019-02-26] MEDS ORDERED: methylPREDNISolone SOD SUCC 125 MG/2ML VIAL IV SCH (16:30)
[2019-02-26] MEDS: PROSOURCE / PROSTAT (PYXIS) 30 ML UDC PO SCH (17:21)
[2019-02-26] MEDS: BLOOD SUGAR DIAGNOSTIC 1 EACH STRIP VI SCH ×2 (17:31→22:17)
[2019-02-26] MEDS: INSULIN REGULAR, HUMAN 100 UNIT/ML 3 ML VIAL SQ PRN (17:32)
--- NOTE | 2019-02-26 18:00 | NUR ---
MS RN NOTES CARD DOFFER AT BEDSIDE. STARTED HD. WILL CONTINUE TO MONITOR
--- NOTE | 2019-02-26 18:50 | NUR ---
MS RN NOTES PATIENT RESTING INSIDE ROOM. AWAKE, A/O X4. NO ACUTE DISTRESS. HD ONGOING AND PATIENT TOLERATED WELL. PATIENT KEPT CLEAN, DRY AND COMFORTABLE. GUNN CATH IN PLACE WITH YELLOW URINE OUTPUT NOTED. CALL LIGHT WITHIN EASY REACH
[2019-02-26] MEDS: SOLU-MEDROL 500 MG IN NS 100 ML IV SCH (19:02)
--- NOTE | 2019-02-26 19:55 | NUR ---
RN NOTES RECEIVED PATIENT ONGOING HEMODIALYSIS, SAFETY MEASURES IN PLACE, ASPIRATION PRECAUTION EMPHASIZED, CALL LIGHT WITHIN EASY REACH, REPOSITIONED FOR COMFORT, ALL NEEDS ANTICIPATED, IV ACCESS INTACT AND PATENT. WILL CONTINUE TO MONITOR ACCORDINGLY.
[2019-02-26 20:00] VITALS: BP 180/91
--- NOTE | 2019-02-26 20:35 | NUR ---
RN NOTES STATUS POST HEMODIALYSIS WITH OUTPUT REMOVED 2200 ML, NOTED, SAFETY MEASURES MAINTAINED, NO SIGNS OF DISTRESS.
[2019-02-26] MEDS ORDERED: SOLU-MEDROL 500 MG IN NS 100 ML IV SCH (21:00)
[2019-02-26] MEDS: *INSULIN REGULAR(HUMULIN R)HUM 100 UNIT/ML VIAL SQ PRN (22:17)
[2019-02-27] MEDS: HYDROCODONE/APAP 5/325MG 1 EACH TABLET PO PRN (00:39)
[2019-02-27] MEDS: METOPROLOL TARTRATE 25 MG TABLET PO SCH ×3 (05:20→21:10)
[2019-02-27] MEDS: INSULIN REGULAR, HUMAN 100 UNIT/ML 3 ML VIAL SQ PRN ×3 (06:10→17:35)
[2019-02-27] MEDS: BLOOD SUGAR DIAGNOSTIC 1 EACH STRIP VI SCH ×4 (06:16→21:10)
--- NOTE | 2019-02-27 06:53 | NUR ---
RN NOTES ALL NEEDS ATTENDED AND MET, ABLE TO REST AND SLEPT AT INTERVALS, KEPT CLEAN DRY AND COMFORTABLE. NO SIGNS OF ACUTE RESPIRATORY / CARDIAC DISTRESS NOTED, SAFETY MEASURES IN PLACED, ASPIRATION PRECAUTION EMPHASIZED. WILL ENDORSE TO AM NURSE FOR CONTINUITY OF CARE.
[2019-02-27 08:00] VITALS: BP 146/94
--- NOTE | 2019-02-27 08:00 | NUR ---
MS RN NOTES PATIENT IN BED RESTING NO SOB OR ACUTE DISTRESS NOTED. PATIENT ALERT, ORIENTED X4. PERIPHERAL IV INTACT PATENT. BED IN LOW LOCKED POSITION. CALL LIGHT WITHIN REACH. WILL CONTINUE TO MONITOR.
[2019-02-27] MEDS: CHOLECALCIFEROL 1,000 UNIT TABLET (VIT D3) PO SCH (08:40)
[2019-02-27] MEDS: SEVELAMER CARBONATE 800 MG TABLET PO SCH ×3 (08:40→17:32)
[2019-02-27] MEDS: DOCUSATE SODIUM 100 MG CAPSULE PO SCH (08:40)
[2019-02-27] MEDS: MAGNESIUM HYDROXIDE 30 ML UDC PO SCH (08:40)
[2019-02-27] MEDS: SENNOSIDES 8.6 MG TABLET PO SCH (08:41)
[2019-02-27] MEDS: SOLU-MEDROL 500 MG IN NS 100 ML IV SCH (08:41)
[2019-02-27] MEDS: FUROSEMIDE 80 MG TABLET PO SCH (08:41)
[2019-02-27] MEDS: PROSOURCE / PROSTAT (PYXIS) 30 ML UDC PO SCH ×3 (08:45→17:33)
[2019-02-27] MEDS ORDERED: TUBERCULIN,PURIF.PROT.DERIV. 5 TU/0.1 ML VIAL ID ONE (11:30)
[2019-02-27 12:55] LABS: BASOPHILS % (AUTO) 0.2 % (0.0-2.0); HEMATOCRIT 22 % (39-51); HEMOGLOBIN 7.3 g/dL (13.5-17.5); LYMPHOCYTES # (AUTO) 0.7 /CMM (0.8-4.8); LYMPHOCYTES % (AUTO) 3.9 % (20.0-44.0); MEAN CORPUSCULAR HGB CONC 33 g/dl (31.0-36.0); MEAN CORPUSCULAR VOLUME 85 fL (80-96); MONOCYTES # (AUTO) 0.5 /CMM (0.1-1.30); MONOCYTES % (AUTO) 2.6 % (2.0-12.0); NEUTROPHILS # (AUTO) 16.3 /CMM (1.8-8.9); NEUTROPHILS % (AUTO) 93.3 % (43.0-81.0); PLATELET COUNT (AUTO) 399 /CMM (150-450); RED BLOOD CELL COUNT(AUTO) 2.61 MIL/uL (4.5-6.0); WHITE BLOOD COUNT (AUTO) 17.5 K/uL (4.3-11.0)
[2019-02-27 14:56] LABS: ALBUMIN 1.9 g/dL (3.4-5.0); BILIRUBIN,TOTAL 0.3 mg/dL (0.2-1.0); CALCIUM, SERUM 8.4 mg/dL (8.5-10.1); MAGNESIUM 2.7 mg/dL (1.8-2.4); PHOSPHORUS 4.3 mg/dL (2.5-4.9); POTASSIUM 5.2 mmol/L (3.5-5.1); TOTAL PROTEIN, SERUM 7.1 g/dL (6.4-8.2)
[2019-02-27 15:04] LABS: CREATININE 8.5 mg/dL (0.6-1.3)
--- NOTE | 2019-02-27 15:10 | NUR ---
MS RN NOTES HD CATH REMOVED BY HD NURSE PATIENT TOLERATED WELL. WILL CONTINUE TO MONITOR.
--- NOTE | 2019-02-27 15:25 | NUR ---
MS RN NOTES PATIENT TRANSFERRED TO ROOM 101 TO NEGATIVE PRESSURE ISOLATION TO R/U TB . SKIN TEST ADMINISTERED. AND QUANTIFERON-TB ORDERED. PATIENT IN STABLE CONDITION. AWARE OF THE TRANSFER AND THE REASON OF ISOLATION. HD CATH SITE DRESSING INTACT PATENT. NO BLEEDING NOTED. MESSI ENDORSED. BEDSIDE REPORT GIVEN.
--- NOTE | 2019-02-27 15:40 | NUR ---
MS1/RN TRANSFERRED - AK1 ROOM 101 PT ARRIVED VIA BED ACCOMPANIED BY 3WEST NURSE, TRANSFERRED TO ROOM 101 (NEGATIVE PRESSURED ROOM) PT A/O X 3-4, DENIES ANY SYMPTOMS, NO ACUTE DISTRESS, PLACED ON 2L O2 VIA N/C SATURATING @ 99%, RESPIRATIONS EVEN & UNLABORED, LUNG SOUNDS CLEAR. IV SITE FLUSHED, PATENT NO S/S OF INFECTION, SL. HD CATHETER ON RIGHT CHEST WALL INTACT, DRESSING CLEAN. PT IS OBESE, WITH GENERALIZED EDEMA. NOTED WITH REDDENED LOWER EXTREMITIES WITH OPEN BLISTERS. PT REORIENTED TO HIS SURROUNDINGS, COMFORTABLE. CL WITHIN REACHED, SAFETY MAINTAINED AND ISOLATION OBSERVED. ON GOING MONITORING.
[2019-02-27 16:00] VITALS: BP 132/81
--- NOTE | 2019-02-27 19:00 | NUR ---
MS RN NOTE RECEIVED PT IN STABLE CONDITION A/O X3-4, CURRENTLY IN BED. NO SIGNS OF SOB OR DISTRESS, NO C/O PAIN OR N/V. L AC#[address] S/L. NOTED WITH GUNN IN PLACE WITH MINIMAL URINE DRAINING. R CHEST PERMACATH NOTED DRY AND INTACT. ALL CURRENT NEEDS ATTENDED TO. BED LOW, LOCKED, UPPER RAILS UP, AND CALL LIGHT WITHIN REACH. WILL CONT. TO MONITOR. Addendum: 02/27/19 at 1937 by ANANDA BRODY RN CONTACT AND AIRBORNE PRECAUTIONS IN PLACE.
--- NOTE | 2019-02-27 19:30 | NUR ---
MS1/RN AM SHIFT END NOTES NO ACUTE CHANGE OF CONDITION NOTED SINCE PT OF TRANSFERRED FROM [facility]. ALL NEEDS MET. PT ENDORSED TO PM NURSE TO CONTINUE CARE. CL WITHIN REACHED, SAFETY MAINTAINED AND ISOLATION OBSERVED.
[2019-02-27] MEDS: *INSULIN REGULAR(HUMULIN R)HUM 100 UNIT/ML VIAL SQ PRN (21:21)
[2019-02-28] VITALS (7 sets, daily range): BP systolic 140–179; BP diastolic 77–99
[2019-02-28] MEDS: HYDROCODONE/APAP 5/325MG 1 EACH TABLET PO PRN ×3 (02:14→20:52)
[2019-02-28] MEDS: METOPROLOL TARTRATE 25 MG TABLET PO SCH ×3 (04:09→20:53)
--- NOTE | 2019-02-28 06:09 | NUR ---
MS RN NOTE PT REMAINS IN STABLE CONDITION A/O X3-4, CURRENTLY IN BED. NO SIGNS OF SOB OR DISTRESS, NO C/O PAIN OR N/V. L AC#[address] S/L. NOTED WITH GUNN IN PLACE WITH MINIMAL URINE DRAINING. R CHEST PERMACATH NOTED DRY AND INTACT. ALL CURRENT NEEDS ATTENDED TO. BED LOW, LOCKED, UPPER RAILS UP, ISOLATION PRECAUTIONS IN PLACE, AND CALL LIGHT WITHIN REACH. WILL CONT. TO MONITOR AND ENDORSE TO NEXT SHIFT FOR MESSI.
[2019-02-28 06:32] LABS: BASOPHILS % (AUTO) 0.2 % (0.0-2.0); HEMATOCRIT 21 % (39-51); LYMPHOCYTES # (AUTO) 1.1 /CMM (0.8-4.8); LYMPHOCYTES % (AUTO) 5.1 % (20.0-44.0); MEAN CORPUSCULAR HGB CONC 32 g/dl (31.0-36.0); MEAN CORPUSCULAR VOLUME 85 fL (80-96); MONOCYTES # (AUTO) 2.3 /CMM (0.1-1.30); MONOCYTES % (AUTO) 10.3 % (2.0-12.0); NEUTROPHILS # (AUTO) 18.6 /CMM (1.8-8.9); NEUTROPHILS % (AUTO) 84.4 % (43.0-81.0); PLATELET COUNT (AUTO) 404 /CMM (150-450); RED BLOOD CELL COUNT(AUTO) 2.51 MIL/uL (4.5-6.0)
[2019-02-28 06:48] LABS: HEMOGLOBIN 6.9 g/dL (13.5-17.5)
--- NOTE | 2019-02-28 06:59 | NUR ---
MS RN NOTE CALLED PYTHON DJANGO DEVELOPER NUMBER TO PAGE DR. DUCKWORTH TO REPORT HGB 6.9. AWAITING MD RETURN CALL.
--- NOTE | 2019-02-28 07:07 | NUR ---
MS RN NOTE STILL AWAITING MD RETURN CALL, WILL ENDORSE CRITICAL HGB TO NEXT SHIFT. TREY CHARGE NURSE MADE AWARE.
[2019-02-28 07:08] LABS: POTASSIUM 5.2 mmol/L (3.5-5.1)
--- NOTE | 2019-02-28 07:30 | NUR ---
RECEIVED PT. ALERT AND ORIENTED X3-4. COOPERATIVE,PLEASANT. BP A LITTLE ELEVATED. DUE FOR DIALYSIS TODAY. WELL H AND H LOW.PT. WITH F/C WITH GOOD URINE OUTPUT.
[2019-02-28 07:36] LABS: BAND % (MANUAL) 4 % (0.0-5.0); LYMPHOCYTES % (MANUAL) 7 % (16-48); MONOCYTES % (MANUAL) 6 % (0-11.0); NEUTROPHILS % (MANUAL) 83 (42-76)
[2019-02-28 07:46] LABS: CREATININE 9.3 mg/dL (0.6-1.3)
[2019-02-28] MEDS: BLOOD SUGAR DIAGNOSTIC 1 EACH STRIP VI SCH ×4 (08:48→21:06)
[2019-02-28] MEDS: DOCUSATE SODIUM 100 MG CAPSULE PO SCH (09:30)
[2019-02-28] MEDS: SEVELAMER CARBONATE 800 MG TABLET PO SCH ×4 (09:30→18:03)
[2019-02-28] MEDS: CHOLECALCIFEROL 1,000 UNIT TABLET (VIT D3) PO SCH (09:30)
[2019-02-28] MEDS: FUROSEMIDE 80 MG TABLET PO SCH (09:30)
[2019-02-28] MEDS: SENNOSIDES 8.6 MG TABLET PO SCH (09:30)
[2019-02-28] MEDS: PROSOURCE / PROSTAT (PYXIS) 30 ML UDC PO SCH ×3 (09:31→17:00)
[2019-02-28] MEDS: MAGNESIUM HYDROXIDE 30 ML UDC PO SCH (09:31)
--- NOTE | 2019-02-28 09:59 | NUR ---
GIVEN ZOFRAN FOR WRETCHING,STATES HAD NAUSEA ALL NIGHT LONG.
[2019-02-28] MEDS ORDERED: ONDANSETRON HCL/PF 4 MG/2 ML VIAL IV PRN (10:00)
[2019-02-28] MEDS: INSULIN REGULAR, HUMAN 100 UNIT/ML 3 ML VIAL SQ PRN (14:04)
--- NOTE | 2019-02-28 15:33 | NUR ---
starting blood transfusion per dialysis via dialysis cath as per orders. lopressor held although bp up due to dialysis.afebrile.
--- NOTE | 2019-02-28 15:45 | NUR ---
vs stable. temp 99.0.
--- NOTE | 2019-02-28 16:23 | NUR ---
just given norco transfusion complete. vs stable.
--- NOTE | 2019-02-28 17:15 | NUR ---
PT'S HERE BELONGING SHEET SIGNED.ALL PAPERS SIGNED.DRESSING TO CHEST DRY AND INTACT.ADVISED PT. TO CONTACT DR. AKINS FOR APPT.AND KEEP CHEST DRSG DRY.TAKEN TO LOBBY VIA W/C ACCOMPANIED BY AND HISTORIC PRESERVATIONIST.AWARE TO RESOURCE ROOM SPECIAL EDUCATION TEACHER PAIN MED RX ADDITIONALLY INSTRUCTED TO GET A PRIMARY MD TO FOLLOW UP WITH.PT. AND VERBALIZED UNDERSTANDING OF ALL INSTRUCTIONS. Addendum: 02/28/19 at 1928 by LAURIE PEÑALOZA RN ABOVE INFO ON INCORRECT PT.
--- NOTE | 2019-02-28 18:30 | NUR ---
ESTELLA. BLOOD TRANSFUSION WELL.POOR APPETITE MOST OF DAY.
--- NOTE | 2019-02-28 18:55 | NUR ---
DR BANERJEE IN AND SPOKE WITH PT. REGARDING BONE MARROW BX PROCEDURE.CONSENT TO FOLLOW.
--- NOTE | 2019-02-28 19:40 | NUR ---
RN OPEN NOTES RECEIVED PATIENT AWAKE IN BED. A/OX3. NO SIGNS OF DISTRESS OR DISCOMFORT. BREATHING EVEN AND UNLABORED. ON 2LPM O2 VIA NC. IV ACCESS IN LAC AND RFA, PATENT AND INTACT, NO SIGNS OF REDNESS OR INFILTRATION. HAS RCW PERMACATH C/D/I. HAS F/C INTACT DRAINING CLEAR YELLOW FLUID. BED IN LOW LOCKED POSITION WITH SIDE RAILS X2. CALL LIGHT WITHIN REACH. WILL CONTINUE TO MONITOR.
[2019-02-28] MEDS: *INSULIN REGULAR(HUMULIN R)HUM 100 UNIT/ML VIAL SQ PRN (21:00)
[2019-03-01] MEDS: HYDROCODONE/APAP 5/325MG 1 EACH TABLET PO PRN ×4 (01:04→17:41)
[2019-03-01 04:00] VITALS: BP 165/87
[2019-03-01] MEDS: METOPROLOL TARTRATE 25 MG TABLET PO SCH ×3 (04:24→20:58)
[2019-03-01 06:24] LABS: BASOPHILS # (AUTO) 0.1 /CMM (0.0-0.2); BASOPHILS % (AUTO) 0.4 % (0.0-2.0); EOSINOPHILS % (AUTO) 0.8 % (0.0-6.0); HEMATOCRIT 23 % (39-51); HEMOGLOBIN 7.3 g/dL (13.5-17.5); LYMPHOCYTES # (AUTO) 1.3 /CMM (0.8-4.8); LYMPHOCYTES % (AUTO) 7.8 % (20.0-44.0); MEAN CORPUSCULAR HGB CONC 32 g/dl (31.0-36.0); MEAN CORPUSCULAR VOLUME 86 fL (80-96); MONOCYTES # (AUTO) 1.8 /CMM (0.1-1.30); MONOCYTES % (AUTO) 10.6 % (2.0-12.0); NEUTROPHILS # (AUTO) 13.7 /CMM (1.8-8.9); NEUTROPHILS % (AUTO) 80.4 % (43.0-81.0); PLATELET COUNT (AUTO) 365 /CMM (150-450); RED BLOOD CELL COUNT(AUTO) 2.65 MIL/uL (4.5-6.0)
[2019-03-01] MEDS: BLOOD SUGAR DIAGNOSTIC 1 EACH STRIP VI SCH ×4 (06:42→22:00)
[2019-03-01] MEDS: INSULIN REGULAR, HUMAN 100 UNIT/ML 3 ML VIAL SQ PRN (06:44)
--- NOTE | 2019-03-01 06:49 | NUR ---
RN CLOSING NOTES PATIENT AWAKE IN BED. A/OX3. NO SIGNS OF DISTRESS OR DISCOMFORT. BREATHING EVEN AND UNLABORED. ON 2LPM O2 VIA NC. IV ACCESS IN LAC AND RFA, PATENT AND INTACT, NO SIGNS OF REDNESS OR INFILTRATION. HAS RCW PERMACATH C/D/I. HAS F/C INTACT DRAINING CLEAR YELLOW FLUID. ALL NEEDS MET. NO SIGNIFICANT CHANGES THROUGH THE NIGHT. PATIENT KEPT CLEAN. DRY. AND COMFORTABLE. BED IN LOW LOCKED POSITION WITH SIDE RAILS X2. CALL LIGHT WITHIN REACH. WILL ENDORSE TO AM SHIFT FOR MESSI.
[2019-03-01 07:07] LABS: BILIRUBIN,TOTAL 0.2 mg/dL (0.2-1.0); POTASSIUM 4.8 mmol/L (3.5-5.1); TOTAL PROTEIN, SERUM 6.4 g/dL (6.4-8.2)
[2019-03-01 07:13] LABS: CREATININE 7.5 mg/dL (0.6-1.3)
--- NOTE | 2019-03-01 07:25 | NUR ---
MS RN NOTES RECIVED A CRITICAL LAB FOR CR [id number] AND REPORTED TO OPHELIA VELASCO. INTERNET MARKETING ANALYST AWARE OF THE RESULT.
[2019-03-01 08:00] VITALS: BP_SYST 130; BP_SYST 183; BP_DIAS 76; BP_DIAS 98
[2019-03-01] MEDS ORDERED: LIDOCAINE 1% INJ 50 ML MDV IJ ONE (08:30)
[2019-03-01] MEDS: MAGNESIUM HYDROXIDE 30 ML UDC PO SCH (09:00)
[2019-03-01] MEDS: DOCUSATE SODIUM 100 MG CAPSULE PO SCH (09:00)
--- NOTE | 2019-03-01 09:07 | NUR ---
MS RN NOTES PATIENT WENT FOR X RAY.
[2019-03-01] MEDS: CHOLECALCIFEROL 1,000 UNIT TABLET (VIT D3) PO SCH (10:05)
[2019-03-01] MEDS: SENNOSIDES 8.6 MG TABLET PO SCH (10:05)
[2019-03-01] MEDS: PROSOURCE / PROSTAT (PYXIS) 30 ML UDC PO SCH ×3 (10:10→17:00)
[2019-03-01] MEDS: FUROSEMIDE 80 MG TABLET PO SCH (10:10)
[2019-03-01] MEDS: SEVELAMER CARBONATE 800 MG TABLET PO SCH ×3 (10:13→17:41)
[2019-03-01 12:00] VITALS: BP 154/99
--- NOTE | 2019-03-01 12:30 | NUR ---
m Addendum: 03/01/19 at 1616 by CAROLINA GARBER RN ignore the note
--- NOTE | 2019-03-01 12:30 | NUR ---
MS RN NOTES BLOOD GLUCOSE LEVEL 128 MG/DL NO INSULIN WAS GIVEN PER SLIDING SCALE.
[2019-03-01 16:00] VITALS: BP 150/82
--- NOTE | 2019-03-01 17:30 | NUR ---
MS RN NOTES PATIENT IN BED A/OX4 . ALL NEEDS ATTENDED, MEDICATION ADMINISTRATED INCLUDING PAIN MEDS. NO SOB OR DISTRESS NOTED AT THIS TIME. BIOPSY SUPPLEMENTS TAKEN FROM LAB AND PLACED AT THE BED SIDE. CALL LIGHT WITHIN REACH , BED AT THE LOWEST POSITION LOCKED.ENDORCED TO SCENIC ARTIST NURSE FOR MESSI.
[2019-03-01 20:00] VITALS: BP_SYST 170; BP_DIAS 92; BP_DIAS 94
[2019-03-02] MEDS: HYDROCODONE/APAP 5/325MG 1 EACH TABLET PO PRN (03:43)
[2019-03-02 04:00] VITALS: BP 162/93
[2019-03-02] MEDS: METOPROLOL TARTRATE 25 MG TABLET PO SCH ×3 (05:10→21:18)
--- NOTE | 2019-03-02 07:38 | NUR ---
RN OPENING NOTES PT. IS LYING IN BED RESTING. BREATHING EVEN AND UNLABORED ON 2LPM O2 VIA NC. NO SOB, RESPIRATORY DISTRESS OR COMPLAINTS OF PAIN NOTED AT THIS TIME. PT. WITH R FOREARM 24 GAUGE SALINE LOCKED. R CHEST WALL PERMCATH NO SIGNS OF BLEEDING NOTED. GUNN CATH INTACT AND PATENT, DRAINING YELLOW URINE VIA GRAVITY WITH 50 ML OUTPUT ON THE BAG.BED LOCKED AND IN LOWEST POSITION, SIDE RAILS UP X3, BED ALARM ON, CALL LIGHT WITHIN REACH. WILL CONTINUE TO MONITOR
[2019-03-02] MEDS: BLOOD SUGAR DIAGNOSTIC 1 EACH STRIP VI SCH ×4 (07:59→23:03)
[2019-03-02 08:00] VITALS: BP 176/96
[2019-03-02 08:12] LABS: IMMUNOGLOBULIN A, SERUM 294 mg/dL (90-386); IMMUNOGLOBULIN G, SERUM 1397 mg/dL (700-1600); IMMUNOGLOBULIN M, SERUM 77 mg/dL (20-172)
[2019-03-02] MEDS: PROSOURCE / PROSTAT (PYXIS) 30 ML UDC PO SCH ×3 (09:00→17:00)
[2019-03-02] MEDS: SENNOSIDES 8.6 MG TABLET PO SCH (09:25)
[2019-03-02] MEDS: CHOLECALCIFEROL 1,000 UNIT TABLET (VIT D3) PO SCH (09:25)
[2019-03-02] MEDS: DOCUSATE SODIUM 100 MG CAPSULE PO SCH (09:25)
[2019-03-02] MEDS: FUROSEMIDE 80 MG TABLET PO SCH (09:26)
[2019-03-02] MEDS: MAGNESIUM HYDROXIDE 30 ML UDC PO SCH (09:26)
[2019-03-02] MEDS: SEVELAMER CARBONATE 800 MG TABLET PO SCH ×3 (09:28→18:00)
--- NOTE | 2019-03-02 09:34 | NUR ---
WOUND CARE CONSULT: PT PRESENTS WITH REDNESS TO BILATERAL LOWER LEGS (ESPECIALLY RT LOWER LEG) WITH OPEN BLISTERS TO LOWER EXTREMITIES AND RASH TO GROIN/BUTTOCKS AREA, PRESENT ON ADMISSION. RECOMMENDATIONS MADE FOR SKIN PROTECTION. DISCUSSED WITH NURSING STAFF. RECOMMEND DPM CONSULT AND SURGICAL CONSULT. DR MICHELLE AND DR العلي NOTIFIED OF CONSULT REQUESTS. WILL SEE PRN. DIAZ IN AGREEMENT WITH PLAN OF CARE. Addendum: 03/02/19 at 0936 by HANH GLEASON WNDNU Amended: Links added.
[2019-03-02] MEDS: Z GUARD REMEDY 2 OZ OINT TP SCH (10:47)
[2019-03-02 12:07] LABS: *SPE A/G RATIO 0.7 (0.7-1.7); *SPE ALBUMIN 2.5 g/dL (2.9-4.4); *SPE ALPHA-1-GLOBULIN 0.4 g/dL (0.0-0.4); *SPE ALPHA-2-GLOBULIN 0.9 g/dL (0.4-1.0); *SPE BETA GLOBULIN 0.9 g/dL (0.7-1.3); *SPE GLOBULIN, TOTAL 3.5 g/dL (2.2-3.9); *SPE M-SPIKE Not Observed g/dL (Not Observed); *SPEGAMMA GLOBULIN 1.3 g/dL (0.4-1.8)
[2019-03-02] MEDS: CLOTRIMAZOLE 1% 15 GM TUBE TP SCH ×2 (13:33→18:15)
--- NOTE | 2019-03-02 14:05 | NUR ---
RN NOTES PATIENT'S BP @1336 185/96 AND NOTIFIED MELT HOUSE SUPERVISOR SAUL VELASCO. ADMINISTERED THE ROUTINE LOPRESSOR 25MG. WILL CHECK IN HOUR.
[2019-03-02 16:00] VITALS: BP 168/99
[2019-03-02] MEDS ORDERED: MORPHINE SULFATE INJ 2 MG/ML DISP.SYRIN IV ONE (17:30)
--- NOTE | 2019-03-02 18:35 | NUR ---
RN NOTES ASSISTED DR BANERJEE AT BEDSIDE FOR THE BONE MARROW BIOPSY. ADMINISTERED MORPHINE IV 1MG PRIOR THE PROCEDURE. PATIENT IS STABLE POST PROCEDURE. NO ACUTE BLEEDING NOTED.
[2019-03-02 19:06] LABS: HEMATOCRIT 23 % (39-51); HEMOGLOBIN 7.5 g/dL (13.5-17.5); MEAN CORPUSCULAR HGB CONC 33 g/dl (31.0-36.0); MEAN CORPUSCULAR VOLUME 86 fL (80-96); NEUTROPHILS # (AUTO) 9.2 /CMM (1.8-8.9); WHITE BLOOD COUNT (AUTO) 11.7 K/uL (4.3-11.0)
[2019-03-02 19:11] LABS: BASOPHILS # (AUTO) 0.1 /CMM (0.0-0.2); EOSINOPHILS % (AUTO) 1.3 % (0.0-6.0); LYMPHOCYTES % (AUTO) 8.5 % (20.0-44.0); MONOCYTES # (AUTO) 1.2 /CMM (0.1-1.30); MONOCYTES % (AUTO) 10.6 % (2.0-12.0); NEUTROPHILS % (AUTO) 78.6 % (43.0-81.0); PLATELET COUNT (AUTO) 316 /CMM (150-450); RED BLOOD CELL COUNT(AUTO) 2.64 MIL/uL (4.5-6.0)
--- NOTE | 2019-03-02 19:35 | NUR ---
RN NOTES BLOOD SUGAR 160 MG/DL WAS NOT ABLE TO GIVE HUMULIN R COVERAGE BECAUSE THERE WAS NO INSULIN IN THE CASSETTE. CALLED PHARMACY AND SPOKE WITH LAURA, WILL DELIVER SOON. . ENDORSED AND INFORMED PM RN
--- NOTE | 2019-03-02 19:40 | NUR ---
RN NOTES RECEIVED PATIENT AWAKE, RESTING COMFORTABLY, NO SIGNS OF DISTRESS, SAFETY MEASURES IN PLACE, IV ACCESS INTACT AND PATENT. REPOSITIONED FOR COMFORT. ALL NEEDS ATTENDED. WILL CONTINUE TO MONITOR ACCORDINGLY.
--- NOTE | 2019-03-02 19:45 | NUR ---
RN CLOSING NOTES PT IN BED, RESTING COMFORTABLY. IN NO ACUTE DISTRESS. NO SOB NOTED. COMPLAIN OF PAIN ON THE SURGICAL SITE BUT PER PT IT IS TOLERABLE. . NO BLEEDING NOTES. ALL NEEDS MET. SPECIMEN FOR BONE MARROW BIOPSY DROPPED OFF AT THE LAB. BED IN LOW POSITION, LOCKED. CALL LIGHT WITHIN REACH. ENDORSED TO PM RN FOR MESSI
--- NOTE | 2019-03-02 20:25 | NUR ---
STACIA NOTES NOTIFIED OPHELIA VELASCO ABOUT THE RESULT OF VENOUS STUDY AND THE LATEST BP OF THE PATIENT. AWAITING FOR FEED BACK. Addendum: 03/02/19 at 2027 by DEVEN STRAUSS RN NOTIFIED OPHELIA VELASCO @ 1444
[2019-03-02] MEDS: INSULIN REGULAR, HUMAN 100 UNIT/ML 3 ML VIAL SQ PRN (23:03)
[2019-03-03] MEDS: HYDROCODONE/APAP 5/325MG 1 EACH TABLET PO PRN ×3 (00:17→23:40)
[2019-03-03 00:58] VITALS: BP 168/76
[2019-03-03] MEDS: METOPROLOL TARTRATE 25 MG TABLET PO SCH ×3 (04:31→21:00)
--- NOTE | 2019-03-03 07:08 | NUR ---
RN NOTES ALL NEEDS ATTENDED AND MET. ABLE TO REST AND SLEPT AT INTERVALS. SAFETY MEASURES IN PLACE, CALL LIGHT WITHIN EASY REACH. ENDORSED TO AM NURSE FOR CONTINUITY OF CARE.
[2019-03-03] MEDS: BLOOD SUGAR DIAGNOSTIC 1 EACH STRIP VI SCH ×4 (07:56→22:00)
[2019-03-03] MEDS: INSULIN REGULAR, HUMAN 100 UNIT/ML 3 ML VIAL SQ PRN ×2 (07:56→12:20)
[2019-03-03 08:00] VITALS: BP 167/88
[2019-03-03 08:01] LABS: THYROID STIMULATING HORMONE 3.877 uIU/mL (0.358-3.74)
[2019-03-03] MEDS: MAGNESIUM HYDROXIDE 30 ML UDC PO SCH (08:34)
[2019-03-03] MEDS: SENNOSIDES 8.6 MG TABLET PO SCH (08:35)
[2019-03-03] MEDS: DOCUSATE SODIUM 100 MG CAPSULE PO SCH (08:35)
[2019-03-03] MEDS: SEVELAMER CARBONATE 800 MG TABLET PO SCH ×3 (08:35→17:04)
[2019-03-03] MEDS: FUROSEMIDE 80 MG TABLET PO SCH (08:35)
[2019-03-03] MEDS: PROSOURCE / PROSTAT (PYXIS) 30 ML UDC PO SCH ×3 (08:36→16:55)
[2019-03-03] MEDS: SILVER SULFADIAZINE 50 GM JAR TP SCH (08:37)
[2019-03-03] MEDS: CLOTRIMAZOLE 1% 15 GM TUBE TP SCH ×2 (08:37→16:55)
[2019-03-03] MEDS: Z GUARD REMEDY 2 OZ OINT TP SCH (08:37)
[2019-03-03] MEDS: CHOLECALCIFEROL 1,000 UNIT TABLET (VIT D3) PO SCH (08:38)
[2019-03-03 16:00] VITALS: BP 177/87
[2019-03-03] MEDS: APIXABAN 5 MG TABLET PO SCH (17:04)
[2019-03-03] MEDS: *INSULIN REGULAR(HUMULIN R)HUM 100 UNIT/ML VIAL SQ PRN (17:12)
[2019-03-03 20:00] VITALS: BP_SYST 152; BP_SYST 160; BP_DIAS 83; BP_DIAS 98
[2019-03-04 04:00] VITALS: BP 152/78
[2019-03-04 04:01] VITALS: BP 188/106
[2019-03-04] MEDS: METOPROLOL TARTRATE 25 MG TABLET PO SCH ×3 (06:01→20:20)
[2019-03-04] MEDS: HYDROCODONE/APAP 5/325MG 1 EACH TABLET PO PRN ×2 (06:05→20:20)
[2019-03-04] MEDS: BLOOD SUGAR DIAGNOSTIC 1 EACH STRIP VI SCH ×4 (07:30→21:06)
[2019-03-04 07:35] LABS: BASOPHILS # (AUTO) 0.1 /CMM (0.0-0.2); BASOPHILS % (AUTO) 1.1 % (0.0-2.0); EOSINOPHILS % (AUTO) 1.9 % (0.0-6.0); HEMATOCRIT 22 % (39-51); HEMOGLOBIN 7.3 g/dL (13.5-17.5); LYMPHOCYTES # (AUTO) 1.2 /CMM (0.8-4.8); LYMPHOCYTES % (AUTO) 10.6 % (20.0-44.0); MEAN CORPUSCULAR HGB CONC 33 g/dl (31.0-36.0); MEAN CORPUSCULAR VOLUME 85 fL (80-96); MONOCYTES # (AUTO) 1.3 /CMM (0.1-1.30); MONOCYTES % (AUTO) 11.2 % (2.0-12.0); NEUTROPHILS # (AUTO) 8.5 /CMM (1.8-8.9); NEUTROPHILS % (AUTO) 75.2 % (43.0-81.0); PLATELET COUNT (AUTO) 318 /CMM (150-450); RED BLOOD CELL COUNT(AUTO) 2.59 MIL/uL (4.5-6.0); WHITE BLOOD COUNT (AUTO) 11.3 K/uL (4.3-11.0)
[2019-03-04 08:00] VITALS: BP 179/98
[2019-03-04 08:01] LABS: CALCIUM, SERUM 7.6 mg/dL (8.5-10.1); CREATININE 4.9 mg/dL (0.6-1.3); POTASSIUM 3.8 mmol/L (3.5-5.1)
[2019-03-04] MEDS: FUROSEMIDE 80 MG TABLET PO SCH (09:05)
[2019-03-04] MEDS: SENNOSIDES 8.6 MG TABLET PO SCH (09:05)
[2019-03-04] MEDS: DOCUSATE SODIUM 100 MG CAPSULE PO SCH (09:05)
[2019-03-04] MEDS: CHOLECALCIFEROL 1,000 UNIT TABLET (VIT D3) PO SCH (09:05)
[2019-03-04] MEDS: SEVELAMER CARBONATE 800 MG TABLET PO SCH ×3 (09:05→17:26)
[2019-03-04] MEDS: APIXABAN 5 MG TABLET PO SCH ×2 (09:06→17:27)
[2019-03-04] MEDS: INSULIN REGULAR, HUMAN 100 UNIT/ML 3 ML VIAL SQ PRN ×3 (09:08→21:04)
[2019-03-04] MEDS: MAGNESIUM HYDROXIDE 30 ML UDC PO SCH (09:09)
[2019-03-04] MEDS: PROSOURCE / PROSTAT (PYXIS) 30 ML UDC PO SCH ×3 (09:09→17:22)
[2019-03-04] MEDS: CLOTRIMAZOLE 1% 15 GM TUBE TP SCH ×2 (09:09→17:22)
[2019-03-04] MEDS: Z GUARD REMEDY 2 OZ OINT TP SCH (09:10)
[2019-03-04] MEDS: SILVER SULFADIAZINE 50 GM JAR TP SCH (09:10)
[2019-03-04 12:00] VITALS: BP 160/88
--- NOTE | 2019-03-04 14:20 | NUR ---
alert, oriented, and appropriate. on 2liter NC, sat well at 95%, denied any dyspnea, no sob noted, but generalized swelling, his face, and both feet, non-pitting , noticeable. Seen by UNIVERSITY REGISTRAR, patient is going to have PT eval tomorrow
[2019-03-04 17:00] VITALS: BP 150/86
[2019-03-04 20:00] VITALS: BP 192/99
--- NOTE | 2019-03-04 20:26 | NUR ---
BP NOTED TO SBP HIGH AT 192 ADMINISTERED SCHED METOPROLOL AND NORCO FOR DAISY WILL CONT TO MONTIOR.
[2019-03-05] MEDS: HYDROCODONE/APAP 5/325MG 1 EACH TABLET PO PRN ×5 (00:35→21:18)
[2019-03-05 04:00] VITALS: BP 188/98
--- NOTE | 2019-03-05 04:30 | NUR ---
ATTEMPTED TO TAKE NEW PICUTES PER RPOTOCOL PATIENT REFUSED STATES " I DONT WANT TODO THAT RIGHT NOW, I WANT TO GO BACK TO SLEEP."
[2019-03-05] MEDS: METOPROLOL TARTRATE 25 MG TABLET PO SCH ×3 (06:35→21:05)
[2019-03-05] MEDS: BLOOD SUGAR DIAGNOSTIC 1 EACH STRIP VI SCH ×4 (06:44→21:06)
[2019-03-05 07:15] LABS: BASOPHILS # (AUTO) 0.2 /CMM (0.0-0.2); BASOPHILS % (AUTO) 1.3 % (0.0-2.0); EOSINOPHILS % (AUTO) 1.7 % (0.0-6.0); HEMATOCRIT 23 % (39-51); HEMOGLOBIN 7.5 g/dL (13.5-17.5); LYMPHOCYTES # (AUTO) 1.3 /CMM (0.8-4.8); LYMPHOCYTES % (AUTO) 10.2 % (20.0-44.0); MEAN CORPUSCULAR HGB CONC 33 g/dl (31.0-36.0); MEAN CORPUSCULAR VOLUME 84 fL (80-96); MONOCYTES # (AUTO) 1.3 /CMM (0.1-1.30); MONOCYTES % (AUTO) 10.6 % (2.0-12.0); NEUTROPHILS # (AUTO) 9.5 /CMM (1.8-8.9); NEUTROPHILS % (AUTO) 76.2 % (43.0-81.0); PLATELET COUNT (AUTO) 333 /CMM (150-450); RED BLOOD CELL COUNT(AUTO) 2.69 MIL/uL (4.5-6.0); WHITE BLOOD COUNT (AUTO) 12.5 K/uL (4.3-11.0)
[2019-03-05 07:37] LABS: CREATININE 4.4 mg/dL (0.6-1.3); POTASSIUM 3.6 mmol/L (3.5-5.1)
[2019-03-05 08:00] VITALS: BP 169/84
[2019-03-05] MEDS: SEVELAMER CARBONATE 800 MG TABLET PO SCH ×3 (08:55→17:44)
[2019-03-05] MEDS: SENNOSIDES 8.6 MG TABLET PO SCH (08:56)
[2019-03-05] MEDS: DOCUSATE SODIUM 100 MG CAPSULE PO SCH (08:56)
[2019-03-05] MEDS: CHOLECALCIFEROL 1,000 UNIT TABLET (VIT D3) PO SCH (09:01)
[2019-03-05] MEDS: FUROSEMIDE 80 MG TABLET PO SCH (09:01)
[2019-03-05] MEDS: APIXABAN 5 MG TABLET PO SCH ×2 (09:03→16:47)
[2019-03-05] MEDS: PROSOURCE / PROSTAT (PYXIS) 30 ML UDC PO SCH ×3 (09:04→16:48)
[2019-03-05] MEDS: Z GUARD REMEDY 2 OZ OINT TP SCH (09:07)
[2019-03-05] MEDS: SILVER SULFADIAZINE 50 GM JAR TP SCH (09:08)
[2019-03-05] MEDS: MAGNESIUM HYDROXIDE 30 ML UDC PO SCH (09:09)
[2019-03-05] MEDS: CLOTRIMAZOLE 1% 15 GM TUBE TP SCH ×2 (09:11→17:11)
[2019-03-05 16:00] VITALS: BP_SYST 198; BP_DIAS 84; BP_DIAS 87
--- NOTE | 2019-03-05 17:57 | NUR ---
Call to [facility] for patient transfer. Gwyn superivsor says he will speak with aircraft parts assembler to confirm patient prior to taking patient back. Nik Willis RN
[2019-03-05 19:30] VITALS: BP 186/96
--- NOTE | 2019-03-05 19:30 | NUR ---
Patient endorsement to night nurse. [facility] return call. Supply Chain Planner unable to return call due to patient emergent needs with another patient on caseload of commercial underwriter. If unable endorse to morning shift to follow up with discharge plan of patient. Vital signs appear within baseline level for the patient. Nik Willis RN
[2019-03-05 20:00] VITALS: BP 172/97
[2019-03-05] MEDS: *INSULIN REGULAR(HUMULIN R)HUM 100 UNIT/ML VIAL SQ PRN (21:07)
--- NOTE | 2019-03-05 21:23 | NUR ---
RN MS NOTES TRANSFERRED MESSI TO [facility]. PATIENT IN STABLE CONDITION.
--- NOTE | 2019-03-05 21:30 | NUR ---
RECEIVED PATIENT FROM [facility]. PATIENT IS SLEEPING, VS STABLE PATIENT HAS NO ACUTE DISTRESS. WILL CONTINUE TO MONITOR
[2019-03-06 04:00] VITALS: BP 175/93
[2019-03-06] MEDS: METOPROLOL TARTRATE 25 MG TABLET PO SCH ×2 (05:22→13:24)
--- NOTE | 2019-03-06 07:00 | NUR ---
RN MS NOTES PATIENT A/O X4 PATIENT IS ASLEEP BUT EASILY WOKEN WITH NAME AND TOUCH . PATIENT BREATHING IS EVEN AND UNLABORED NO SOB, NO ACUTE RESPIRATORY DISTRESS . PATIENT IUS ON 2LPM O2 VIA NC. PATIENT IS SATURATING WELL. PATIENT HAVE RFA 24 # CLEAN AND IN TACT. PATIENT HAS R CHEST WALL PERCATH NO SIGNS OF BLEEDING NOTED. PATIENT HAS GUNN CATH INTACT AND PATIENT. BED LOCKED AND LOWEST POSITION CALL LIGHT WITH IN REACH ALL SAFETY MEASURE IMPLEMENTED PER HOSPITAL POLICY
[2019-03-06 08:00] VITALS: BP 169/85
[2019-03-06] MEDS: BLOOD SUGAR DIAGNOSTIC 1 EACH STRIP VI SCH ×4 (08:19→21:31)
[2019-03-06] MEDS: CHOLECALCIFEROL 1,000 UNIT TABLET (VIT D3) PO SCH (08:20)
[2019-03-06] MEDS: DOCUSATE SODIUM 100 MG CAPSULE PO SCH (08:20)
[2019-03-06] MEDS: SEVELAMER CARBONATE 800 MG TABLET PO SCH ×3 (08:20→17:09)
[2019-03-06] MEDS: FUROSEMIDE 80 MG TABLET PO SCH (08:21)
[2019-03-06] MEDS: MAGNESIUM HYDROXIDE 30 ML UDC PO SCH (08:21)
[2019-03-06] MEDS: APIXABAN 5 MG TABLET PO SCH ×2 (08:29→17:11)
[2019-03-06] MEDS: *INSULIN REGULAR(HUMULIN R)HUM 100 UNIT/ML VIAL SQ PRN ×2 (08:30→21:33)
[2019-03-06] MEDS: SENNOSIDES 8.6 MG TABLET PO SCH (08:31)
[2019-03-06] MEDS: SILVER SULFADIAZINE 50 GM JAR TP SCH (08:32)
[2019-03-06] MEDS: CLOTRIMAZOLE 1% 15 GM TUBE TP SCH ×2 (08:32→17:10)
[2019-03-06] MEDS: Z GUARD REMEDY 2 OZ OINT TP SCH (08:32)
[2019-03-06] MEDS: PROSOURCE / PROSTAT (PYXIS) 30 ML UDC PO SCH ×3 (08:34→17:00)
--- NOTE | 2019-03-06 08:56 | NUR ---
MS RN CLOSING NOTES, PATIENT IS SLEEPING. NO ACUTE CHANGES DURING PACKAGE HANDLER. ALL CARE HAS BEEN PROVIDED. NO SOB NOTED. BED IN LOW LOCKED POSITION CALL LIGHT WITHIN REACH, ENDORSED PATIENT TO AM RN FOR MESSI.
[2019-03-06 12:00] VITALS: BP 169/85
[2019-03-06] MEDS: INSULIN REGULAR, HUMAN 100 UNIT/ML 3 ML VIAL SQ PRN (13:29)
--- NOTE | 2019-03-06 16:43 | NUR ---
RN MS NOTES CALLED PCP FOR BP. REQUESTING BP MEDICATION ORDERS : 25MG HYDRALAZINE PO X1 NOW
[2019-03-06] MEDS ORDERED: hydrALAZINE HCL 25 MG TABLET PO ONE ×2 (17:00→19:00)
[2019-03-06] MEDS: HYDROCODONE/APAP 5/325MG 1 EACH TABLET PO PRN ×2 (17:09→21:42)
--- NOTE | 2019-03-06 18:53 | NUR ---
RN MS NOTES PATIENT IS RESTING COMFORABLELY IN BED. PATIENT IS A/O X3. PATIENT IS COOPERATIVE WITH CARE. NO CHANGE IN PATIENT CONDITION. NO SOB , NO PAIN, NO ACUTE RESPIRATOY DISTRESS. BED LOCKED AND LOWEST POSITION CALL LIGHT WITH IN REACH. ALL SAFERY MEASURE IMPLEMENTED PER HOSPITAL POLICY
--- NOTE | 2019-03-06 18:53 | NUR ---
RN MS NOTES PER PROVIDER ORDERS PATIENT OKAY TO DISCHARGE IS OKAY TO DISCHARGE WITH SYSTOLIC BP AT 150'S
--- NOTE | 2019-03-06 19:35 | NUR ---
MS RN OPENING NOTES RECEIVED PATIENT FROM MORNING SHIFT, ALERT AND ORIENTED X 3. VERBALLY RESPONSIVE AND ABLE TO FOLLOW DIRECTIONS. BREATHING REGULAR AND UNLABORED ON OXYGEN AT 2L/MIN VIA NASAL CANNULA. RIGHT FOREARM G24 IV LINE INTACT AND PATENT FLUSHING WELL WITH NO BLEEDING OR S/S OF INFECTION SEEN. RIGHT CHEST PERMACATH INTACT WITH NO BLEEDING NOTED DRESSING CLEAN AND DRY. NO COMPLAINTS OF PAIN/DISCOMFORT REPORTED OF THE TIME. BED LOW AND LOCKED ON SEMI FOWLERS POSITION. CALL LIGHT IN REACH. WILL CONTINUE TO MONITOR.
[2019-03-06 20:00] VITALS: BP_SYST 182; BP_SYST 183; BP_DIAS 89; BP_DIAS 97
--- NOTE | 2019-03-06 20:00 | NUR ---
MS RN NOTES AMBULANCE ARRIVED TO PICK-UP PATIENT FOR DISCHARGE TO [facility]. NOTIFIED TRANSPORT OF PATIENTS BLOOD PRESSURE OF 182/97, DUE HYDRALAZINE 25MG GIVEN BY MOUTH AND ASKED THEM TO WAIT FOR 30MINS TO RECHECK BLOOD PRESSURE. EXPLAINED ALSO TO THE PATIENT THAT HIS SBP SHOULD BE BELOW 150mmHg TO BE ABLE TO BE DISCHARGE.
[2019-03-06] MEDS ORDERED: hydrALAZINE HCL 25 MG TABLET PO PRN (20:30)
--- NOTE | 2019-03-06 20:30 | NUR ---
MS RN NOTES RECHECK BLOOD PRESSURE WITH LATEST READING 181/97mmHg. TRANSPORT MADE AWARE AND TOLD THEM THAT WE'LL NOTIFY THE DOCTOR FIRST. TOOK THEIR DISPATCH NUMBER IN CASE PATIENT BLOOD PRESSURE STABILIZED FOR DISCHARGE. MADE AWARE WITH ORDERS RECEIVED AND CARRIED OUT.
[2019-03-06] MEDS: METOPROLOL TARTRATE 50 MG TABLET PO SCH (20:58)
--- NOTE | 2019-03-06 21:45 | NUR ---
MS RN NOTES COMPLAINED OF BLE 7/10 PAIN, NORCO 5/325 GIVEN BY MOUTH. NON-PHARMACOLOGICAL INTERVENTIONS PROVIDED. VITAL SIGNS WNL. WILL CONTINUE TO MONITOR.
--- NOTE | 2019-03-06 22:00 | NUR ---
MS RN NOTES BS 163mg/dL, 3UNITS REGULAR INSULIN GIVEN SQ. SNACKS PROVIDED ON BEDSIDE, ASSISTED ON EATING. WILL CONTINUE TO MONITOR.
[2019-03-06] MEDS ORDERED: CLONIDINE HCL 0.1 MG TABLET PO ONE (23:30)
--- NOTE | 2019-03-06 23:30 | NUR ---
MS RN NOTES UPDATED REGARDING PATIENTS BLOOD PRESSURE. REPORTED THAT AT 2200 BP WAS 158/89 THEN AT 2300 BP 168/98. ORDERED CLONIDINE 0.1MG BY MOUTH ONE TIME ONLY.
--- NOTE | 2019-03-07 00:30 | NUR ---
MS RN NOTES CAME WITH ORDER TO POSTPONED DISCHARGE UNTIL PATIENTS BLOOD PRESSURE IS LESS THAN 150mmHg AND STABLE.
[2019-03-07] MEDS: HYDROCODONE/APAP 5/325MG 1 EACH TABLET PO PRN ×2 (02:58→14:59)
--- NOTE | 2019-03-07 03:00 | NUR ---
MS RN NOTES COMPLAINED OF BLE 7/10 PAIN, NORCO 5/325 GIVEN BY MOUTH. NON-PHARMACOLOGICAL INTERVENTIONS PROVIDED. VITAL SIGNS WNL. WILL CONTINUE TO MONITOR.
[2019-03-07 04:00] VITALS: BP 174/84
--- NOTE | 2019-03-07 06:30 | NUR ---
MS RN CLOSING NOTES PATIENT IN BED ALERT AND ORIENTED X 3. VERBALLY RESPONSIVE AND ABLE TO FOLLOW DIRECTIONS. BREATHING REGULAR AND UNLABORED ON OXYGEN AT 2L/MIN VIA NASAL CANNULA. RIGHT FOREARM G24 IV LINE INTACT AND FLUSHING WELL. RIGHT CHEST PERMACATH INTACT WITH NO BLEEDING NOTED DRESSING CLEAN AND DRY. NO COMPLAINTS OF PAIN/DISCOMFORT REPORTED OF THE TIME. LATEST BP 152/93 HYDRALAZINE 25MG GIVEN BY MOUTH FOR SBP>150mmHg. BED LOW AND LOCKED ON SEMI FOWLERS POSITION. CALL LIGHT IN REACH. WILL ENDORSE TO MORNING SHIFT FOR MESSI.
--- NOTE | 2019-03-07 07:00 | NUR ---
RN MS1 NOTES PATIENT A/O X4 PATIENT IS ASLEEP BUT EASILY WOKEN WITH NAME AND TOUCH . PATIENT BREATHING IS EVEN AND UNLABORED NO SOB, NO ACUTE RESPIRATORY DISTRESS . PATIENT IS ON 2LPM O2 VIA NC. PATIENT IS SATURATING WELL. PATIENT HAVE RFA 24 # CLEAN AND IN TACT. PATIENT HAS R CHEST WALL PERCATH NO SIGNS OF BLEEDING NOTED. PATIENT HAS GUNN CATH INTACT AND PATIENT. BED LOCKED AND LOWEST POSITION CALL LIGHT WITH IN REACH ALL SAFETY MEASURE IMPLEMENTED PER HOSPITAL POLICY
[2019-03-07 08:00] VITALS: BP 168/90
[2019-03-07] MEDS: BLOOD SUGAR DIAGNOSTIC 1 EACH STRIP VI SCH ×2 (08:50→12:18)
[2019-03-07] MEDS: SEVELAMER CARBONATE 800 MG TABLET PO SCH ×2 (08:53→12:19)
[2019-03-07] MEDS: DOCUSATE SODIUM 100 MG CAPSULE PO SCH (08:53)
[2019-03-07] MEDS: SENNOSIDES 8.6 MG TABLET PO SCH (08:53)
[2019-03-07] MEDS: CHOLECALCIFEROL 1,000 UNIT TABLET (VIT D3) PO SCH (08:53)
[2019-03-07] MEDS: FUROSEMIDE 80 MG TABLET PO SCH (08:53)
[2019-03-07] MEDS: MAGNESIUM HYDROXIDE 30 ML UDC PO SCH (08:54)
[2019-03-07] MEDS: APIXABAN 5 MG TABLET PO SCH (08:55)
[2019-03-07] MEDS: METOPROLOL TARTRATE 50 MG TABLET PO SCH (08:57)
[2019-03-07] MEDS: PROSOURCE / PROSTAT (PYXIS) 30 ML UDC PO SCH ×2 (08:57→12:18)
[2019-03-07] MEDS: INSULIN REGULAR, HUMAN 100 UNIT/ML 3 ML VIAL SQ PRN ×2 (09:03→12:24)
[2019-03-07] MEDS: Z GUARD REMEDY 2 OZ OINT TP PRN ×2 (09:05→09:06)
[2019-03-07] MEDS: SILVER SULFADIAZINE 50 GM JAR TP SCH (09:06)
[2019-03-07] MEDS: CLOTRIMAZOLE 1% 15 GM TUBE TP SCH (09:06)
[2019-03-07] MEDS: Z GUARD REMEDY 2 OZ OINT TP SCH (09:07)
[2019-03-07] MEDS ORDERED: hydrALAZINE HCL 50 MG TABLET PO SCH (11:30)
[2019-03-07 12:00] VITALS: BP 168/90
[2019-03-07] MEDS ORDERED: CLONIDINE HCL 0.1 MG TABLET PO ONE (15:00)
[2019-03-07 15:01] VITALS: BP 170/100
[2019-03-07] MEDS ORDERED: hydrALAZINE HCL IV 20 MG VIAL IV PRN (16:00)
--- NOTE | 2019-03-07 17:15 | NUR ---
RN MS 1 NOTES [facility]. PATIENT IS AWARE OF TRANSFER. DOCUMENTS SIGN. PATIENT DID NOT WANT TO TAKE PICTURES ON HIS WOUNDS PATIENT WAS INFORMED THAT IS WAS REQUIRED EDUCATED 3X TIMES. PATIENT STILL RESISTANT. PATIENT A/O X3 NO SOB, NO ACUTE RESPIRATORY DISTRESS. NO PAIN. RN LABOR AND DELIVERY TRANSFER / ESCORTED PATIENT.
[2019-03-08] MEDS ORDERED: PANTOPRAZOLE 40 MG VIAL ONE (04:46)
[2019-03-08] MEDS ORDERED: ONDANSETRON HCL/PF 4 MG/2 ML VIAL ONE (04:46)
== END 2019-03-07 16:00 | DRG 462 ==
LOC: ER 20:43 → TELE 02-26 08:09 → MED 02-26 10:33 → MEDSG1 02-27 15:40
PROVIDERS: ADMIT Internal Medicine; ATTEND Nurse Practitioner Acute Care
PROC: 5A1D70Z Performance of Urinary Filtration, Intermittent, Less than 6 Hours Per Day (ICD-10-PCS; 2019-02-26)
PROC: 30233N1 Transfusion of Nonautologous Red Blood Cells into Peripheral Vein, Percutaneous Approach (ICD-10-PCS; 2019-02-26)
PROC: 07DR3ZX Extraction of Iliac Bone Marrow, Percutaneous Approach, Diagnostic (ICD-10-PCS; principal; 2019-03-02)
DX: N00.8 Acute nephritic syndrome with other morphologic changes (principal); J90 Pleural effusion, not elsewhere classified; N17.9 Acute kidney failure, unspecified; E44.0 Moderate protein-calorie malnutrition; I82.411 Acute embolism and thrombosis of right femoral vein; L03.115 Cellulitis of right lower limb; E66.01 Morbid (severe) obesity due to excess calories; E87.2 Acidosis; E87.5 Hyperkalemia; D64.9 Anemia, unspecified; I82.431 Acute embolism and thrombosis of right popliteal vein; E11.40 Type 2 diabetes mellitus with diabetic neuropathy, unspecified; L30.4 Erythema intertrigo; Z79.01 Long term (current) use of anticoagulants; Z79.4 Long term (current) use of insulin; D63.8 Anemia in other chronic diseases classified elsewhere; Z68.41 Body mass index [BMI] 40.0-44.9, adult; Z99.2 Dependence on renal dialysis; N25.0 Renal osteodystrophy; D72.829 Elevated white blood cell count, unspecified; I82.622 Acute embolism and thrombosis of deep veins of left upper extremity; S80.822A Blister (nonthermal), left lower leg, initial encounter; S80.821A Blister (nonthermal), right lower leg, initial encounter; X58.XXXA Exposure to other specified factors, initial encounter; Y93.9 Activity, unspecified; Y92.129 Unspecified place in nursing home as the place of occurrence of the external cause; D63.1 Anemia in chronic kidney disease; E11.9 Type 2 diabetes mellitus without complications; E87.70 Fluid overload, unspecified
CPT/HCPCS: 36415; 71045-TC; 71250-TC; 77075-TC; 80048-TC; 80053-TC; 80076-TC; 82232; 82728-TC; 82784; 82962-TC; 83540-TC; 83690-TC; 83735-TC; 84100-TC; 84155; 84165; 84443-TC; 84484-TC; 85025-TC; 85610-TC; 85730-TC; 86334; 86480; 86580-TC; 86850-TC; 86921-TC; 87040-TC; 87081-TC; 90935-TC; 93970-TC; 94799-TC; 97116-TC; 97530-TC; C9113; G0378; J1815; J2270; J2405; J2930; J3490; J7030; J7050; P9016-BL

== ENCOUNTER 2019-05-08 07:07 | Emergency (ER) | payer OTHER ==
[~2019-05-08] VITALS: Ht 170.2 cm; Wt 90.7 kg
[~2019-05-08 07:07] MED LIST changes: +ACET325T53 MC; +ACET325T53 PO; +ALBU2.5V11 MC; -ALBU2.5V13 NEB; +AMIN887L PO; +BISA10SU61 RC; -CEFE1PIG3 IV; +CHOL200059 PO; -DEXT50DI8 IV; +DOCU-141 PO; +FURO80TA85 PO; -INSU100V28 SQ; +INSU100V3 IJ; +IPRA0.2S49 IH; -IPRA0.2S9 NEB; -Insulin Glargine,Hum SQ; -Levofloxacin (250MG) PO; +MAGN400O6 PO; +METO25TA6 PO; +SENN-168 PO; +SEVE800T8 PO
--- NOTE | 2019-05-08 07:21 | NUR ---
PT SELF PRESENTS TO ED. AMBULATORY. [facility] MALFUNCTION. PT DENIES ANY DISCOMFORT. GOWNED AND PLACED ON MONITOR. AWAITING MD HERNANDEZ.
--- NOTE | 2019-05-08 07:27 | NUR ---
DR GONZALEZ AT BEDSIDE FOR EVAL.
--- NOTE | 2019-05-08 07:35 | NUR ---
ROSE GROWER AT BEDSIDE FOR BLOOD DRAW.
[2019-05-08 07:48] LABS: BASOPHILS # (AUTO) 0.1 /CMM (0.0-0.2); MEAN CORPUSCULAR HGB CONC 33 g/dl (31.0-36.0)
[2019-05-08 07:51] LABS: CALCIUM, SERUM 9.6 mg/dL (8.5-10.1); CREATININE 2.3 mg/dL (0.6-1.3); POTASSIUM 4.6 mmol/L (3.5-5.1)
[2019-05-08 07:53] LABS: BASOPHILS % (AUTO) 0.7 % (0.0-2.0); EOSINOPHILS % (AUTO) 0.8 % (0.0-6.0); HEMATOCRIT 41 % (39-51); HEMOGLOBIN 13.5 g/dL (13.5-17.5); LYMPHOCYTES # (AUTO) 1.3 /CMM (0.8-4.8); LYMPHOCYTES % (AUTO) 9.3 % (20.0-44.0); MEAN CORPUSCULAR VOLUME 85 fL (80-96); MONOCYTES % (AUTO) 7.2 % (2.0-12.0); NEUTROPHILS # (AUTO) 11.3 /CMM (1.8-8.9); PLATELET COUNT (AUTO) 257 /CMM (150-450); RED BLOOD CELL COUNT(AUTO) 4.84 MIL/uL (4.5-6.0); WHITE BLOOD COUNT (AUTO) 13.8 K/uL (4.3-11.0)
--- NOTE | 2019-05-08 10:30 | NUR ---
IV removed. Catheter intact and site benign. Pressure and 4x4 applied to site. No bleeding noted.
--- NOTE | 2019-05-08 10:34 | NUR ---
Patient does not wish to proceed with medical care recommended by Dr. Lua. Patient given information related to possible complications, up to and including , which could occur as a result of leaving the hospital at this time. Patient verbalizes understanding of risks involved due to leaving against medical advice. Patient has signed AMA form.
[2019-05-08 10:37] VITALS: BP 143/99
== END 2019-05-08 10:39 | disposition left against medical advice (07) ==
LOC: ER 07:07
DX: T82.41XA Breakdown (mechanical) of vascular dialysis catheter, initial encounter (principal); I12.0 Hypertensive chronic kidney disease with stage 5 chronic kidney disease or end stage renal disease; E11.22 Type 2 diabetes mellitus with diabetic chronic kidney disease; N18.6 End stage renal disease; Z99.2 Dependence on renal dialysis; Z79.899 Other long term (current) drug therapy; Z79.4 Long term (current) use of insulin
CPT/HCPCS: 36415; 71045-TC; 80048-TC; 85025-TC; 85730-TC

== ENCOUNTER 2019-05-17 06:32 | Inpatient (IN) | payer OTHER ==
[~2019-05-17] VITALS: Ht 170.2 cm; Wt 88.5 kg
[~2019-05-17 06:32] MED LIST changes: +ALBU2.5V11 INH; -ALBU2.5V11 MC; -INSU100V3 IJ; +INSU100V3 SQ
--- NOTE | 2019-05-17 06:40 | NUR ---
PT AAOX4. BIBSELF C/O MISSING DIALYSIS FOR A WEEK. PT C/O DIALYSIS CATHETER NOT WORKING. PALCED ON MONITOR AND PULSE OX. AWAITING MD ORDERS. VSS.
--- NOTE | 2019-05-17 07:06 | NUR ---
XRAY AT BEDSIDE
[2019-05-17 07:24] LABS: BASOPHILS # (AUTO) 0.1 /CMM (0.0-0.2); BASOPHILS % (AUTO) 0.7 % (0.0-2.0); EOSINOPHILS % (AUTO) 1.8 % (0.0-6.0); HEMATOCRIT 40 % (39-51); HEMOGLOBIN 12.9 g/dL (13.5-17.5); MEAN CORPUSCULAR HGB CONC 32 g/dl (31.0-36.0); MEAN CORPUSCULAR VOLUME 84 fL (80-96); MONOCYTES # (AUTO) 0.8 /CMM (0.1-1.30); MONOCYTES % (AUTO) 9.7 % (2.0-12.0); NEUTROPHILS # (AUTO) 6.5 /CMM (1.8-8.9); NEUTROPHILS % (AUTO) 75.8 % (43.0-81.0); PLATELET COUNT (AUTO) 245 /CMM (150-450); RED BLOOD CELL COUNT(AUTO) 4.76 MIL/uL (4.5-6.0); WHITE BLOOD COUNT (AUTO) 8.5 K/uL (4.3-11.0)
[2019-05-17 07:34] LABS: POTASSIUM 4.1 mmol/L (3.5-5.1)
[2019-05-17] MEDS ORDERED: IPRA0.2S9 IH (08:17)
[2019-05-17] MEDS ORDERED: HYDR-4384 PO (08:17)
[2019-05-17] MEDS ORDERED: BLOO-668 IN (08:18)
[2019-05-17] MEDS ORDERED: Z GUARD REMEDY 2 OZ OINT TP PRN (10:30)
[2019-05-17] MEDS ORDERED: ONDANSETRON HCL/PF 4 MG/2 ML VIAL IVP PRN (10:30)
[2019-05-17] MEDS ORDERED: ACETAMINOPHEN 325 MG TABLET MC PRN (10:30)
[2019-05-17] MEDS ORDERED: MAG HYDROX/AL HYDROX/SIMETH 30 ML UDC PO PRN (10:30)
[2019-05-17] MEDS ORDERED: SENNOSIDES 8.6 MG TABLET PO PRN (10:30)
[2019-05-17] MEDS ORDERED: ALBUTEROL FS 2.5 MG/3 ML VIAL.NEB INH PRN (10:30)
[2019-05-17] MEDS ORDERED: MAGNESIUM HYDROXIDE 30 ML UDC PO PRN ×2 (10:30)
[2019-05-17] MEDS ORDERED: ACETAMINOPHEN 325 MG TABLET PO PRN (10:30)
[2019-05-17] MEDS ORDERED: INSULIN REGULAR, HUMAN 100 UNIT/ML 3 ML VIAL SQ PRN (10:30)
[2019-05-17] MEDS ORDERED: IPRATROPIUM NEB FS 0.5 MG/2.5 ML AMPUL.NEB IH PRN (10:30)
[2019-05-17] MEDS ORDERED: HYDROCODONE/APAP 5/325MG 1 EACH TABLET PO PRN ×2 (10:30)
[2019-05-17] MEDS ORDERED: BISACODYL SUPP (10 MG) 10 MG/SUPP.RECT SUPP.RECT RC PRN (10:30)
[2019-05-17] MEDS ORDERED: ZOLPIDEM TARTRATE 5 MG TABLET PO PRN (10:30)
--- NOTE | 2019-05-17 10:56 | NUR ---
report given to gail mcgurie. awaiting transfer to floor.
[2019-05-17] MEDS ORDERED: DEXTROSE 50%-WATER 50 ML DISP.SYRIN IV PRN (11:30)
--- NOTE | 2019-05-17 11:30 | NUR ---
RN ADMITTING NOTES ADMITTED A 58 YEARS OLD, M, TO UNIT VIA GURNEY. A/O X4. ABLE TO MAKE NEEDS KNOWN. NO COMPLAIN OF PAIN AT THIS TIME. PATIENT ORIENTED TO ROOM, UNIT AND STAFF. ON ROOM AIR, BREATHING EVEN AND UNLABORED. PHYSICAL ASSESSMENT DONE BUT REFUSED PICTURES. SKIN IS INTACT WITH RIGHT CHEST QUENTONCATH FOR DIALYSIS ACCESS. IV ACCESS ON RAC#18, INTACT AND PATENT. SAFETY MEASURES INITIATED, BED PLACED IN LOWEST LOCKED POSITION WITH SIDE RAILS UP X2. CALL LIGHT PLACED WITHIN REACH. WILL CONTINUE TO MONITOR.
[2019-05-17] MEDS: FUROSEMIDE 80 MG TABLET PO SCH (11:43)
[2019-05-17] MEDS: BLOOD SUGAR DIAGNOSTIC 1 EACH STRIP IN SCH ×3 (11:58→21:23)
[2019-05-17] MEDS ORDERED: BLOOD SUGAR DIAGNOSTIC 1 EACH STRIP IN SCH (12:00)
[2019-05-17] MEDS: SEVELAMER CARBONATE 800 MG TABLET PO SCH ×2 (12:34→18:08)
[2019-05-17] MEDS: METOPROLOL TARTRATE 25 MG TABLET PO SCH ×2 (12:35→20:57)
[2019-05-17 16:00] VITALS: BP 169/98
[2019-05-17] MEDS: INSULIN REGULAR, HUMAN 100 UNIT/ML 3 ML VIAL SQ PRN (17:24)
[2019-05-17] MEDS ORDERED: FUROSEMIDE 20 MG/2 ML VIAL IV ONE (18:00)
--- NOTE | 2019-05-17 18:10 | NUR ---
RN NOTES PATIENT BP 180/100, DR. COX NOTIFIED WITH ORDERS TO GIVE 20 MG LASIX VIA IV, AND TO CHECK BP IN 1 HR. WILL CONTINUE TO MONITOR.
[2019-05-17] MEDS ORDERED: ALTEPLASE CATHFLO 2 MG/VIAL XX ONE (18:30)
--- NOTE | 2019-05-17 19:15 | NUR ---
MS RN NOTES RECEIVED RESTING COMFORTABLY ON BED,BREATHING REGULAR,NOT IN ANY FORM OF DISTRESS.SALINE LOCK RIGHT AC INTACT AND PATENT.WITH RIGHT UPPER CHEST MOODY CATH FOR HEMODIALYSIS TREATMENT.PER REPORT,BLOOD PRESSURE IS ON THE HIGH SIDE,AND WAS GIVEN LASIX IV.WILL RECHECK BLOOD PRESSURE IN AN HOUR.CALL LIGHT IN REACH,NEEDS ANTICIPATED.
[2019-05-17] MEDS ORDERED: CLONIDINE HCL 0.1 MG TABLET PO PRN (19:30)
--- NOTE | 2019-05-17 19:31 | NUR ---
IF THE BP DOES NOT GO DOWN AFTER ONE HOUR TO GIVE CLONIDINE 0.1 MG, WILL ENDORSE TO JET WIPER NURSE FOR MESSI.
--- NOTE | 2019-05-17 19:31 | NUR ---
RN NOTES PATIENT IN BED RESTING COMFORTABLY IN MODERATE HIGH BACK REST. A/O X4. IV ACCESS ON RAC#18, INTACT AND PATENT. SAFETY MEASURES INITIATED, BED PLACED IN LOWEST LOCKED POSITION WITH SIDE RAILS UP X2. CALL LIGHT PLACED WITHIN REACH. WILL ENDORSE TO HAND RIGGER NURSE FOR MESSI.
[2019-05-17 20:00] VITALS: BP 103/80
--- NOTE | 2019-05-17 20:53 | NUR ---
MS RN NOTES PATIENT CLAIMED "IM TRYING TO DO #2,BUT I CANT" MEDICATED WITH S[place] PO ORDERED.WILL MONITOR FOR BM
--- NOTE | 2019-05-17 21:33 | NUR ---
MS RN NOTES ACCU-CHECK BLOOD SUGAR CHECK 101,NO INSULIN COVERAGE
--- NOTE | 2019-05-18 02:15 | NUR ---
MS RN NOTES STILL AWAKE,MEDICATED WITH AMBIEN 5MG PO ORDERED FOR INSOMNIA.
--- NOTE | 2019-05-18 05:00 | NUR ---
MS RN NOTES BLOOD PRESSURE [id number],DUE LOPRESSOR 25MG PO ADMINISTERED
[2019-05-18] MEDS: METOPROLOL TARTRATE 25 MG TABLET PO SCH ×3 (05:24→21:26)
[2019-05-18] MEDS: BLOOD SUGAR DIAGNOSTIC 1 EACH STRIP IN SCH ×4 (05:26→21:31)
--- NOTE | 2019-05-18 05:30 | NUR ---
MS RN NOTES ACCU-CHECK BLOOD SUGAR CHECK 108,NO INSULIN COVERAGE.
[2019-05-18 06:15] LABS: BASOPHILS # (AUTO) 0.1 /CMM (0.0-0.2); EOSINOPHILS % (AUTO) 2.2 % (0.0-6.0); HEMATOCRIT 41 % (39-51); HEMOGLOBIN 13.5 g/dL (13.5-17.5); LYMPHOCYTES # (AUTO) 1.3 /CMM (0.8-4.8); LYMPHOCYTES % (AUTO) 16.2 % (20.0-44.0); MEAN CORPUSCULAR HGB CONC 33 g/dl (31.0-36.0); MEAN CORPUSCULAR VOLUME 83 fL (80-96); MONOCYTES # (AUTO) 0.7 /CMM (0.1-1.30); MONOCYTES % (AUTO) 9.4 % (2.0-12.0); NEUTROPHILS # (AUTO) 5.6 /CMM (1.8-8.9); NEUTROPHILS % (AUTO) 71.2 % (43.0-81.0); PLATELET COUNT (AUTO) 263 /CMM (150-450); RED BLOOD CELL COUNT(AUTO) 4.96 MIL/uL (4.5-6.0); WHITE BLOOD COUNT (AUTO) 7.9 K/uL (4.3-11.0)
--- NOTE | 2019-05-18 06:16 | NUR ---
MS RN NOTES STILL SLEEPING,NO BM WITH SEN[place]OT.FOR HEMODIALYSIS TODAY,CONSENT SIGNED.IN NO ACUTE DISTRESS.WILL ENDORSE TO DAY NURSE FOR MESSI.
[2019-05-18 06:24] LABS: CALCIUM, SERUM 9.2 mg/dL (8.5-10.1); CREATININE 1.7 mg/dL (0.6-1.3); MAGNESIUM 1.4 mg/dL (1.8-2.4); PHOSPHORUS 3.9 mg/dL (2.5-4.9); POTASSIUM 5.1 mmol/L (3.5-5.1)
[2019-05-18 08:00] VITALS: BP 163/88
--- NOTE | 2019-05-18 08:00 | NUR ---
MS RN NOTES RECEIVED PT IN BED. AWAKE ALERT AND ORIENTED X 4. NO CARDIAC OR RESP DISTRESS NOTED. SATURATING WELL ON ROOM AIR, BREATHING EVEN AND UNLABORED. PT IS AMBULATORY. HEMODIALYSIS ACCESS SITE NOTED ON RIGHT CHEST MOODY CATH. IV ACCESS ON RAC#18, INTACT AND PATENT. FLUSHING WELL. NO S/S OF INFECTION OR INFILTRATION NOTED. SAFETY MEASURES INITIATED, BED PLACED IN LOWEST LOCKED POSITION WITH SIDE RAILS UP X2. CALL LIGHT PLACED WITHIN REACH. WILL CONTINUE TO MONITOR.
[2019-05-18] MEDS: CHOLECALCIFEROL 1,000 UNIT TABLET (VIT D3) PO SCH (08:13)
[2019-05-18] MEDS: SEVELAMER CARBONATE 800 MG TABLET PO SCH ×3 (08:13→17:12)
[2019-05-18] MEDS: DOCUSATE SODIUM 100 MG CAPSULE PO SCH (08:13)
[2019-05-18] MEDS: FUROSEMIDE 80 MG TABLET PO SCH (08:14)
[2019-05-18] MEDS: Magnesium 1GM/D5W 100ML PREMIX 100 ML IV SCH ×2 (12:13→13:25)
[2019-05-18] MEDS: INSULIN REGULAR, HUMAN 100 UNIT/ML 3 ML VIAL SQ PRN ×3 (12:31→21:34)
[2019-05-18] MEDS ORDERED: ALTEPLASE CATHFLO 2 MG/VIAL XX ONE (13:30)
--- NOTE | 2019-05-18 13:49 | NUR ---
RN NOTES PT REPORTS BEING NAUSEATED. ADMINISTERED ZOFRAN. THE REPORTED THAT HE HAS BEEN CONSTIPATED. OFFERED BISACODYL, HOWEVER, HE REFUSED STATES THAT HE DOESNT LIKE SUPPOSITORIES, THEN PT WAS IN THE BATHROOM HE STATED THAT HIS BM IS STARTING TO COME OUT.
--- NOTE | 2019-05-18 18:00 | NUR ---
DIALYSIS PT DIALYSED TODAY. R MOODY CATH DECLOGGED WITH ALTEPLASE BY DIALYSIS NURSE. PER DIALYSUIS NURSE TOOK OUT 2L.
--- NOTE | 2019-05-18 18:44 | NUR ---
MS RN CLOSING NOTES PT IN BED AWAKE ALERT AND ORIENTED X 4. NO CARDIAC OR RESP DISTRESS NOTED. SATURATING WELL ON ROOM AIR, BREATHING EVEN AND UNLABORED. PT IS AMBULATORY. HEMODIALYSIS ACCESS SITE NOTED ON RIGHT CHEST MOODY CATH. PT DIALYSED TODAY AND TOOK OUT 2L. MAGNESIUM REPLACED. IV ACCESS ON RAC#18, INTACT AND PATENT. FLUSHING WELL. NO S/S OF INFECTION OR INFILTRATION NOTED. SAFETY MEASURES INITIATED, BED PLACED IN LOWEST LOCKED POSITION WITH SIDE RAILS UP X2. CALL LIGHT PLACED WITHIN REACH. WILL CONTINUE TO MONITOR.
[2019-05-18 19:30] VITALS: BP 153/95
--- NOTE | 2019-05-18 19:54 | NUR ---
MS RN NOTES PATIENT IN BED, ASLEEP, EASILY AROUSED. ALERT AND ORIENTED X 4. BREATHING EVEN AND UNLABORED ON ROOM AIR. SHOWS NO SIGNS OF ACUTE RESPIRATORY DISTRESS. NO ACUTE PAIN. S/P DIALYSIS 2L OUT 05/17 DURING MORNING SHIFT. MOODY CATH ON R UPPER CHEST, ITS CLEAN DRY AND INTACT. IV ON RAC 18G SL IS CLEAN DRY AND INTACT. SHOWS NO SIGNS OF INFILTRATION, NO REDNESS. SAFETY PRECAUTIONS IN PLACE. BED IN LOWEST POSITION, LOCKED, AND CALL LIGHT KEPT WITHIN REACH. WILL CONTINUE TO MONITOR.
[2019-05-18 20:00] VITALS: BP 153/95
[2019-05-19] MEDS: METOPROLOL TARTRATE 25 MG TABLET PO SCH (05:05)
--- NOTE | 2019-05-19 06:34 | NUR ---
MS RN NOTES PATIENT IN BED, ASLEEP, EASILY AROUSED. ALERT AND ORIENTED X 4. BREATHING EVEN AND UNLABORED ON ROOM AIR. SHOWS NO SIGNS OF ACUTE RESPIRATORY DISTRESS. NO ACUTE PAIN. MOODY CATH ON R UPPER CHEST, ITS CLEAN DRY AND INTACT. IV ON RAC 18G SL IS CLEAN DRY AND INTACT. SHOWS NO SIGNS OF INFILTRATION, NO REDNESS. ALL DUE MEDICATIONS GIVEN. SAFETY PRECAUTIONS IN PLACE. BED IN LOWEST POSITION, LOCKED, AND CALL LIGHT KEPT WITHIN REACH. WILL ENDORSE TO ONCOMING NURSE.
[2019-05-19 06:40] LABS: BASOPHILS # (AUTO) 0.1 /CMM (0.0-0.2); BASOPHILS % (AUTO) 0.8 % (0.0-2.0); EOSINOPHILS % (AUTO) 1.5 % (0.0-6.0); HEMATOCRIT 44 % (39-51); HEMOGLOBIN 14.5 g/dL (13.5-17.5); LYMPHOCYTES # (AUTO) 1.1 /CMM (0.8-4.8); LYMPHOCYTES % (AUTO) 13.1 % (20.0-44.0); MEAN CORPUSCULAR HGB CONC 33 g/dl (31.0-36.0); MEAN CORPUSCULAR VOLUME 82 fL (80-96); MONOCYTES # (AUTO) 0.8 /CMM (0.1-1.30); MONOCYTES % (AUTO) 9.2 % (2.0-12.0); NEUTROPHILS # (AUTO) 6.6 /CMM (1.8-8.9); NEUTROPHILS % (AUTO) 75.4 % (43.0-81.0); PLATELET COUNT (AUTO) 254 /CMM (150-450); RED BLOOD CELL COUNT(AUTO) 5.32 MIL/uL (4.5-6.0); WHITE BLOOD COUNT (AUTO) 8.8 K/uL (4.3-11.0)
[2019-05-19 06:57] LABS: CREATININE 1.9 mg/dL (0.6-1.3); MAGNESIUM 2.1 mg/dL (1.8-2.4); POTASSIUM 4.5 mmol/L (3.5-5.1)
[2019-05-19] MEDS: BLOOD SUGAR DIAGNOSTIC 1 EACH STRIP IN SCH ×2 (07:22→13:21)
[2019-05-19 08:00] VITALS: BP 140/88
--- NOTE | 2019-05-19 08:00 | NUR ---
MS RN AM NOTES PATIENT IN THE ROOM,AWAKE,ALERT AND ORIENTED X 4. AMBULATING AROUND HIS ROOM.HIS BREATHING EVEN AND UNLABORED ON ROOM AIR. SHOWS NO SIGNS OF ACUTE RESPIRATORY DISTRESS. NO ACUTE PAIN. MOODY CATH ON R UPPER CHEST, ITS CLEAN DRY AND INTACT. IV ON RAC 18G SL IS CLEAN DRY AND INTACT. SHOWS NO SIGNS OF INFILTRATION, NO REDNESS. ALL DUE MEDICATIONS GIVEN. SAFETY PRECAUTIONS IN PLACE. BED IN LOWEST POSITION, LOCKED, AND CALL LIGHT KEPT WITHIN REACH.
[2019-05-19] MEDS: DOCUSATE SODIUM 100 MG CAPSULE PO SCH (08:31)
[2019-05-19] MEDS: SEVELAMER CARBONATE 800 MG TABLET PO SCH (08:31)
[2019-05-19] MEDS: CHOLECALCIFEROL 1,000 UNIT TABLET (VIT D3) PO SCH (08:31)
[2019-05-19] MEDS: FUROSEMIDE 80 MG TABLET PO SCH (08:31)
--- NOTE | 2019-05-19 12:30 | NUR ---
DISCHARGED PT HOME ACCOMPANIED BY HIS BROTHER,YADIRA VIA PRIVATE CAR WITH STABLE V/S. REMOVED IV H/L TO RT AC WITH NO BLEEDING OR SWELLING NOTED ON THE IV SITE.RT UPPER CHEST MOODY CATH INTACT AND DRESSING CLEAN AND DRY.
== END 2019-05-19 12:30 | disposition home or self-care (01) | DRG 466 ==
LOC: ER 06:42 → MED 11:06
PROVIDERS: ADMIT Family Medicine; ATTEND Family Medicine
PROC: 5A1D70Z Performance of Urinary Filtration, Intermittent, Less than 6 Hours Per Day (ICD-10-PCS; principal; 2019-05-18)
DX: T82.41XA Breakdown (mechanical) of vascular dialysis catheter, initial encounter (principal); I12.0 Hypertensive chronic kidney disease with stage 5 chronic kidney disease or end stage renal disease; E11.22 Type 2 diabetes mellitus with diabetic chronic kidney disease; N18.6 End stage renal disease; Y92.9 Unspecified place or not applicable; Y71.2 Prosthetic and other implants, materials and accessory cardiovascular devices associated with adverse incidents; Z99.2 Dependence on renal dialysis; D63.8 Anemia in other chronic diseases classified elsewhere; I25.10 Atherosclerotic heart disease of native coronary artery without angina pectoris; Z79.4 Long term (current) use of insulin; Y84.8 Other medical procedures as the cause of abnormal reaction of the patient, or of later complication, without mention of misadventure at the time of the procedure; Y92.009 Unspecified place in unspecified non-institutional (private) residence as the place of occurrence of the external cause
CPT/HCPCS: 36415; 71045-TC; 80048-TC; 80061-TC; 82962-TC; 83735-TC; 84100-TC; 85025-TC; 85610-TC; 86706; 87081-TC; 87340; G0378; J1815; J1940; J2405; J2997; J3475

== ENCOUNTER 2019-08-12 11:06 | Inpatient (IN) | payer OTHER ==
[~2019-08-12] VITALS: Ht 167.6 cm; Wt 88.5 kg
[~2019-08-12 11:06] MED LIST changes: -ACET325T53 PO; -AMIN887L PO; +BLOO-668 IN; -Blood Sugar Diagnostic IN; -HYDR-3972 PO; +HYDR-4384 PO; -IPRA0.2S49 IH; +IPRA0.2S9 IH; -SENN-168 PO; +SENN-261 PO
--- NOTE | 2019-08-12 11:15 | NUR ---
"Sent from Renal Dialysis w/R Leg pain/swelling x2wks was told ?Cellulitis", last dialysis yesterday, to ER bed 1, hooked to monitor, changed to hosp gown, warm blanket provided, patient aao x 4, Dr Castaneda at bedside
[2019-08-12] MEDS ORDERED: MORPHINE SULFATE INJ 10 MG/ML DISP.SYRIN IM ONE (11:30)
[2019-08-12] MEDS ORDERED: MORPHINE SULFATE INJ 4 MG/ML DISP.SYRIN ONE (11:39)
[2019-08-12 12:03] LABS: BASOPHILS # (AUTO) 0.1 /CMM (0.0-0.2); BASOPHILS % (AUTO) 0.5 % (0.0-2.0); HEMATOCRIT 37 % (39-51); LYMPHOCYTES # (AUTO) 0.6 /CMM (0.8-4.8); LYMPHOCYTES % (AUTO) 4.2 % (20.0-44.0); MEAN CORPUSCULAR HGB CONC 33 g/dl (31.0-36.0); MEAN CORPUSCULAR VOLUME 84 fL (80-96); MONOCYTES # (AUTO) 1.5 /CMM (0.1-1.30); NEUTROPHILS # (AUTO) 13.1 /CMM (1.8-8.9); NEUTROPHILS % (AUTO) 85.3 % (43.0-81.0); PLATELET COUNT (AUTO) 389 /CMM (150-450); RED BLOOD CELL COUNT(AUTO) 4.33 MIL/uL (4.5-6.0); WHITE BLOOD COUNT (AUTO) 15.4 K/uL (4.3-11.0)
[2019-08-12 12:23] LABS: CALCIUM, SERUM 9.2 mg/dL (8.5-10.1); CREATININE 2.1 mg/dL (0.6-1.3); POTASSIUM 4.1 mmol/L (3.5-5.1)
[2019-08-12] MEDS ORDERED: LIDOCAINE HCL/MPF 1% 30 ML VIAL IJ ONE (12:46)
--- NOTE | 2019-08-12 12:55 | NUR ---
SPOKE TO CY , [employer] TEACHER OF MED POINT [phone], VERBAL AUTH GIVEN.
[2019-08-12] MEDS ORDERED: PIPERACILLIN /TAZOBACTAM 3.375 G VIAL IV ONE (12:58)
[2019-08-12] MEDS ORDERED: PIPERACILLIN /TAZOBACTAM 3.375 G in IV D5W 50 ML IV ONE (13:00)
--- NOTE | 2019-08-12 13:57 | NUR ---
ROOM 208-2
--- NOTE | 2019-08-12 14:03 | NUR ---
REPORT GIVEN TO EUSEBIO PALOMO FOR MESSI
[2019-08-12 14:15] VITALS: BP 134/67
--- NOTE | 2019-08-12 14:15 | NUR ---
RN NOTES PATIENT ADMITTED FROM ER, 58 Y/OLD MALE ON Dx OF SEPTIC ARTHRITIS. PATIENT A/O X3, REFUSED PAIN, NO ACUTRE RESPIRATORY DISTRESS, V/S TAKEN BP 134/67,P-91, R-19, O2-100 RA, T-98.7. PATIENT EDEMA ON RIGHT KNEE, AND LOWER HEIN AREA. IV ACCESS ON RAC INTACT. BS-257MG/DL, NO COVERAGE GIVEN BECAUSE NOT EAT. SEEN PATIENT BY HOSPITALIST Dr LANDRY, NEEDS ATTENDED AND ANTICIPATED, CALL LIGHT WITHIN TO REACH, CONTINUED MONITORING.
[2019-08-12] MEDS ORDERED: ACETAMINOPHEN 325 MG TABLET PO PRN (15:30)
[2019-08-12] MEDS ORDERED: ZOLPIDEM TARTRATE 5 MG TABLET PO PRN (15:30)
[2019-08-12] MEDS ORDERED: MAGNESIUM HYDROXIDE 30 ML UDC PO PRN (15:30)
[2019-08-12] MEDS ORDERED: MAG HYDROX/AL HYDROX/SIMETH 30 ML UDC PO PRN (15:30)
[2019-08-12] MEDS ORDERED: ONDANSETRON HCL/PF 4 MG/2 ML VIAL IVP PRN (15:30)
[2019-08-12] MEDS ORDERED: DEXTROSE 50%-WATER 50 ML DISP.SYRIN IV PRN (15:30)
[2019-08-12] MEDS ORDERED: Z GUARD REMEDY 2 OZ OINT TP PRN (15:30)
[2019-08-12] MEDS: BLOOD SUGAR DIAGNOSTIC 1 EACH STRIP VI SCH ×3 (15:39→21:48)
[2019-08-12 16:00] VITALS: BP 134/67
--- NOTE | 2019-08-12 17:28 | NUR ---
RN NOTES RECEIVED CALL FROM LAB RESULT OF RIGHT KNEE FLUIDS, GRAM STAIN NEGATIVE SLIDE SENDING TO REVIEW IN [facility], WBC4+.
[2019-08-12] MEDS: HYDROCODONE/APAP 5/325MG 1 EACH TABLET PO PRN (18:20)
--- NOTE | 2019-08-12 18:20 | NUR ---
RN NOTES BS-232 MG/DL COVERAGE GIVEN, ALSO ADMINISTERED NARCO5/325 MG PO PRN FOR RIGHT LEG PAIN 08/16 PER PATIENT REQUEST. PATIENT USING CATCHES FOR BATHROOM, SAFETY PRECAUTION MAINTAINED ALL THE TIME. ENDORSED ONCOMING NURSE FOLLOW PLAN OF CARE.
[2019-08-12] MEDS: INSULIN REGULAR, HUMAN 100 UNIT/ML 3 ML VIAL SQ PRN (18:22)
--- NOTE | 2019-08-12 19:25 | NUR ---
MS RN OPENING NOTES RECEIVED PATIENT FROM MORNING SHIFT, ALERT AND ORIENTED X 4. VERBALLY RESPONSIVE AND ABLE TO FOLLOW DIRECTIONS. BREATHING REGULAR AND UNLABORED ON ROOM AIR. RIGHT AC G20 IV LINE INTACT AND PATENT, FLUSHING WELL WITH NO BLEEDING OR S/S OF INFILTRATION NOTED. DENIES SUICIDAL IDEATION AT THIS TIME. COMPLAINED OF 2/10 RIGHT KNEE PAIN, NON-PHARMACOLOGICAL INTERVENTIONS PROVIDED. BED LOW AND LOCKED ON SEMI FOWLERS POSITION. CALL LIGHT IN REACH. WILL CONTINUE TO MONITOR.
[2019-08-12 20:00] VITALS: BP 143/82
[2019-08-12 20:03] VITALS: BP 143/82
[2019-08-12] MEDS: PIPERACILLIN /TAZOBACTAM 2.25 G in IV D5W 50 ML IV SCH (20:37)
--- NOTE | 2019-08-12 21:00 | NUR ---
MS RN NOTES PATIENT ON DVT PUMPS, WILL FOLLOW-UP WITH MD FOR ORDERS OF CHEMICAL DVT PPX.
[2019-08-12] MEDS: *INSULIN REGULAR(HUMULIN R)HUM 100 UNIT/ML VIAL SQ PRN (21:49)
--- NOTE | 2019-08-12 22:00 | NUR ---
MS RN NOTES BS 152mg/dl, 2UNITS REGULAR INSULIN GIVEN SQ. SNACKS PROVIDED ON BEDSIDE. WILL CONTINUE TO MONITOR.
[2019-08-13] MEDS: HYDROCODONE/APAP 5/325MG 1 EACH TABLET PO PRN ×3 (00:03→20:25)
--- NOTE | 2019-08-13 00:05 | NUR ---
MS RN NOTES COMPLAINED OF 7/10 RIGHT KNEE PAIN, NORCO 5/325 GIVEN BY MOUTH. NON-PHARMACOLOGICAL INTERVENTIONS PROVIDED. VITAL SIGNS WNL. WILL CONTINUE TO MONITOR.
[2019-08-13] MEDS: PIPERACILLIN /TAZOBACTAM 2.25 G in IV D5W 50 ML IV SCH ×3 (04:14→20:24)
[2019-08-13] MEDS: BLOOD SUGAR DIAGNOSTIC 1 EACH STRIP VI SCH ×4 (06:31→21:41)
[2019-08-13] MEDS: INSULIN REGULAR, HUMAN 100 UNIT/ML 3 ML VIAL SQ PRN ×3 (06:33→17:15)
--- NOTE | 2019-08-13 06:40 | NUR ---
MS RN CLOSING NOTES PATIENT IN BED ALERT AND ORIENTED X 4. AFEBRILE WITH NO S/S OF DISTRESS OBSERVED. RIGHT AC G20 IV LINE PATENT AND FLUSHING WELL. NO COMPLAINTS OF PAIN/DISCOMFORT REPORTED AT THIS TIME. BED LOW AND LOCKED ON SEMI FOWLERS POSITION. CALL LIGHT IN REACH. WILL ENDORSE TO MORNING SHIFT FOR MESSI.
[2019-08-13 06:58] LABS: BASOPHILS # (AUTO) 0.1 /CMM (0.0-0.2); EOSINOPHILS % (AUTO) 0.5 % (0.0-6.0); HEMATOCRIT 34 % (39-51); HEMOGLOBIN 11.1 g/dL (13.5-17.5); LYMPHOCYTES # (AUTO) 0.7 /CMM (0.8-4.8); LYMPHOCYTES % (AUTO) 6.3 % (20.0-44.0); MEAN CORPUSCULAR HGB CONC 33 g/dl (31.0-36.0); MEAN CORPUSCULAR VOLUME 84 fL (80-96); MONOCYTES # (AUTO) 1.4 /CMM (0.1-1.30); MONOCYTES % (AUTO) 12.4 % (2.0-12.0); NEUTROPHILS # (AUTO) 9.1 /CMM (1.8-8.9); NEUTROPHILS % (AUTO) 79.8 % (43.0-81.0); PLATELET COUNT (AUTO) 362 /CMM (150-450); RED BLOOD CELL COUNT(AUTO) 4.06 MIL/uL (4.5-6.0); WHITE BLOOD COUNT (AUTO) 11.4 K/uL (4.3-11.0)
[2019-08-13 07:06] LABS: CALCIUM, SERUM 8.9 mg/dL (8.5-10.1); CREATININE 1.9 mg/dL (0.6-1.3); MAGNESIUM 2.1 mg/dL (1.8-2.4); PHOSPHORUS 4.6 mg/dL (2.5-4.9); POTASSIUM 4.5 mmol/L (3.5-5.1)
[2019-08-13 07:19] LABS: THYROID STIMULATING HORMONE 0.873 uIU/mL (0.358-3.74)
[2019-08-13 08:00] VITALS: BP 130/77
--- NOTE | 2019-08-13 08:00 | NUR ---
RN NOTES RECEIVED PATIENT IN THE ROOM A/O X3, NO ACUTE RESPIRATORY DISTRESS, ROOM AIR, WAS COMPLAINING OF PAIN 7/10 PER PAIN SCALE ON RIGHT KNEE. PATIENT TOLERATED BREAKFAST WELL,V/S STABLE, CALL LIGHT WITHIN TO REACH. CONTINUED MONITORING.
[2019-08-13] MEDS: MORPHINE SULFATE INJ 2 MG/ML DISP.SYRIN IV PRN ×4 (08:43→23:52)
--- NOTE | 2019-08-13 08:43 | NUR ---
RN NOTES ADMINISTERED MORPHINE SULFATE 2 MG/ML IV PUSH FOR RIGHT KNEE PAIN 08/16 PER PATIENT REQUEST, [place] [address], P78, R-19, CONTINUED MONITORING. EDUCATED PATIENT FOR CONSTIPATION, ENCOURAGED TO INCREASE FLUID INTAKE.
--- NOTE | 2019-08-13 12:23 | NUR ---
RN NOTES BS-233 MG/DL COVERAGE GIVEN, DVT PUMP ON, PATIENT TOLERATED LUNCH WELL, MEDICATION WERE ADMINISTERED FOR PAIN EFFECTIVE, CONTINUED MONITORING.
--- NOTE | 2019-08-13 13:30 | NUR ---
RN NOTES ADMINISTERED MORPHINE SULFATE 2 MG /ML IV PUSH PER PATIENT REQUEST PAIN 8/10 ON RIGHT KNEE. V/S TAKEN BP-133/76,P-78, R-19. CONTINUED MONITORING.
[2019-08-13 16:00] VITALS: BP 135/79
--- NOTE | 2019-08-13 17:24 | NUR ---
RN NOTES BS-177 GM/DL, COVERAGE GIVEN, ALSO GIVEN MORPHINE SULFATE 2 MG/ML IV PUSH, V/S WNL, CALL LIGHT WITHIN TO REACH. CONTINUED MONITORING.
--- NOTE | 2019-08-13 18:30 | NUR ---
rn notes patient in the bed medication were administered for pain effective. resting. call light within to reach. endorsed oncoming nurse follow plan of care.
--- NOTE | 2019-08-13 19:30 | NUR ---
MS RN OPENING NOTES RECEIVED PATIENT FROM MORNING SHIFT, ALERT AND ORIENTED X 4. VERBALLY RESPONSIVE AND ABLE TO FOLLOW DIRECTIONS. BREATHING REGULAR AND UNLABORED ON ROOM AIR. RIGHT AC G20 IV LINE INTACT AND PATENT, FLUSHING WELL WITH NO BLEEDING OR S/S OF INFILTRATION NOTED. DENIES SUICIDAL IDEATION AT THIS TIME. COMPLAINED OF 7/10 RIGHT KNEE PAIN, NON-PHARMACOLOGICAL INTERVENTIONS PROVIDED. BED LOW AND LOCKED ON SEMI FOWLERS POSITION. CALL LIGHT IN REACH. WILL CONTINUE TO MONITOR.
[2019-08-13 20:00] VITALS: BP 154/80
[2019-08-13 20:17] VITALS: BP 154/80
--- NOTE | 2019-08-13 20:25 | NUR ---
MS RN NOTES COMPLAINED OF 7/10 RIGHT KNEE PAIN, NORCO 5/325 GIVEN BY MOUTH. NON-PHARMACOLOGICAL INTERVENTIONS PROVIDED. VITAL SIGNS WNL. WILL CONTINUE TO MONITOR.
[2019-08-13] MEDS: *INSULIN REGULAR(HUMULIN R)HUM 100 UNIT/ML VIAL SQ PRN (21:42)
--- NOTE | 2019-08-13 22:00 | NUR ---
MS RN NOTES BS 250mg/dl, 4UNITS REGULAR INSULIN GIVEN SQ. SNACKS PROVIDED ON BEDSIDE. WILL CONTINUE TO MONITOR.
--- NOTE | 2019-08-14 | NUR ---
MS RN NOTES COMPLAINED OF 8/10 RIGHT KNEE PAIN, MORPHINE 2MG GIVEN VIA IV PUSH. NON-PHARMACOLOGICAL INTERVENTIONS PROVIDED. VITAL SIGNS WNL. WILL CONTINUE TO MONITOR.
[2019-08-14] MEDS: PIPERACILLIN /TAZOBACTAM 2.25 G in IV D5W 50 ML IV SCH ×3 (04:58→23:06)
[2019-08-14] MEDS: BLOOD SUGAR DIAGNOSTIC 1 EACH STRIP VI SCH ×4 (06:43→22:49)
[2019-08-14] MEDS: INSULIN REGULAR, HUMAN 100 UNIT/ML 3 ML VIAL SQ PRN ×2 (06:44→12:47)
[2019-08-14 07:24] LABS: BASOPHILS # (AUTO) 0.1 /CMM (0.0-0.2); BASOPHILS % (AUTO) 0.7 % (0.0-2.0); EOSINOPHILS % (AUTO) 0.5 % (0.0-6.0); HEMATOCRIT 35 % (39-51); HEMOGLOBIN 11.2 g/dL (13.5-17.5); LYMPHOCYTES # (AUTO) 0.8 /CMM (0.8-4.8); LYMPHOCYTES % (AUTO) 6.8 % (20.0-44.0); MEAN CORPUSCULAR HGB CONC 32 g/dl (31.0-36.0); MEAN CORPUSCULAR VOLUME 84 fL (80-96); MONOCYTES # (AUTO) 1.4 /CMM (0.1-1.30); MONOCYTES % (AUTO) 11.2 % (2.0-12.0); NEUTROPHILS # (AUTO) 9.8 /CMM (1.8-8.9); NEUTROPHILS % (AUTO) 80.8 % (43.0-81.0); PLATELET COUNT (AUTO) 447 /CMM (150-450); RED BLOOD CELL COUNT(AUTO) 4.15 MIL/uL (4.5-6.0); WHITE BLOOD COUNT (AUTO) 12.1 K/uL (4.3-11.0)
[2019-08-14 07:49] LABS: CREATININE 1.6 mg/dL (0.6-1.3); MAGNESIUM 2.2 mg/dL (1.8-2.4); PHOSPHORUS 3.5 mg/dL (2.5-4.9); POTASSIUM 4.4 mmol/L (3.5-5.1)
[2019-08-14 08:00] VITALS: BP 135/75
--- NOTE | 2019-08-14 08:03 | NUR ---
MS RN OPENING NOTES RECEIVED PATIENT IN BED, AWAKE, A/O X4. PATIENT IS ON ROOM AIR; BREATHING IS EVEN AND UNLABORED; NO SOB PRESENT AT THIS MOMENT. NO COMPLAIN OF PAIN. RAC IV ACCESS G # 20 IN P-LACE AND INTACT. [facility] HD SITE. SAFETY PRECAUTIONS IN PLACE; BED IN LOW POSITION AND LOCKED, RAILS UP X2, CALL LIGHT WITHIN REACH. WILL CONTINUE TO MONITOR PATIENT.
[2019-08-14] MEDS: HYDROCODONE/APAP 5/325MG 1 EACH TABLET PO PRN (11:11)
[2019-08-14 16:00] VITALS: BP 150/75
[2019-08-14] MEDS ORDERED: FEE PK DOSING 1 MIN EA MC ONE (17:24)
[2019-08-14] MEDS ORDERED: VANCOMYCIN 500 MG in IV D5W 100 ML IV PRN (17:30)
--- NOTE | 2019-08-14 19:10 | NUR ---
MS RN NOTES RECEIVED PT IN BED AWAKE AND ABLE TO MAKE NEEDS KNOWN. PT A/O X3. NO COMPLAINTS OF PAIN AT THIS TIME. SAFETY MEASURES IN PLACE WITH BED IN LOWEST LOCKED POSITION WITH SIDE RAILS UP X2. CALL LIGHT WITHIN REACH. WILL CONTINUE TO MONITOR.
--- NOTE | 2019-08-14 19:24 | NUR ---
MS RN CLOSING NOTES PATIENT IN BED, AWAKE, A/O X4. PATIENT IS ON ROOM AIR; BREATHING IS EVEN AND UNLABORED; NO SOB PRESENT AT THIS MOMENT. NO COMPLAIN OF PAIN AT THIS TIME. PRN PAIN MEDICATION GIVEN ONCE DURING DAY SHIFT. RAC IV ACCESS G # [address] AND INTACT[address] [facility] HD SITE AND IS BEING DIALYZED AT THIS TIME . ALL NEEDS ATTENDED TO THROUGHOUT THE DAY. SAFETY PRECAUTIONS IN PLACE; BED IN LOW POSITION AND LOCKED, RAILS UP X2, CALL LIGHT WITHIN REACH. WILL ENDORSE TO IMAGING CENTER MANAGER NURSE.
[2019-08-14 20:00] VITALS: BP 142/74
[2019-08-14] MEDS ORDERED: VANCOMYCIN 1.25 GM in IV D5W 250 ML IV ONE (20:00)
--- NOTE | 2019-08-14 20:15 | NUR ---
MS RN NOTES PT FINISHED DIALYSIS, 2L OUT.
[2019-08-14] MEDS: MORPHINE SULFATE INJ 2 MG/ML DISP.SYRIN IV PRN (20:46)
[2019-08-14] MEDS: HEPARIN SODIUM, PORCINE 5000 UNITS/1 ML VIAL SQ SCH (20:54)
[2019-08-14] MEDS: *INSULIN REGULAR(HUMULIN R)HUM 100 UNIT/ML VIAL SQ PRN (22:49)
[2019-08-15] MEDS: MORPHINE SULFATE INJ 2 MG/ML DISP.SYRIN IV PRN ×4 (01:29→21:21)
[2019-08-15] MEDS: PIPERACILLIN /TAZOBACTAM 2.25 G in IV D5W 50 ML IV SCH (05:11)
[2019-08-15] MEDS: BLOOD SUGAR DIAGNOSTIC 1 EACH STRIP VI SCH ×4 (06:44→21:21)
[2019-08-15] MEDS: INSULIN REGULAR, HUMAN 100 UNIT/ML 3 ML VIAL SQ PRN ×3 (06:45→17:26)
--- NOTE | 2019-08-15 07:38 | NUR ---
MS RN NOTES PT IN BED AWAKE AND ABLE TO MAKE NEEDS KNOWN. PT A/O X3. NO COMPLAINTS OF PAIN AT THIS TIME. SAFETY MEASURES IN PLACE WITH BED IN LOWEST LOCKED POSITION WITH SIDE RAILS UP X2. CALL LIGHT WITHIN REACH. WILL ENDORSE TO ONCOMING NURSE FOR MESSI.
[2019-08-15 08:00] VITALS: BP 140/74
--- NOTE | 2019-08-15 08:00 | NUR ---
rn notes RECEIVED PATIENT IN THE BED A/O X3, NO ACUTE RESPIRATORY DISTRESS, V/S STABLE, EDEMA ON RIGHT KNEE, AND WAS COMPLAINING OF PAIN 9/10 PER PAIN SCALE. PATIENT USING URINAL, AND CRUTCHES TO THE BATHROOM, SAFETY PRECAUTION MAINTAINED ALL THE TIME. TOLERATED BREAKFAST WELL. CONTINUED MONITORING.
[2019-08-15 08:20] LABS: CALCIUM, SERUM 8.6 mg/dL (8.5-10.1); CREATININE 1.6 mg/dL (0.6-1.3); MAGNESIUM 2.1 mg/dL (1.8-2.4); PHOSPHORUS 3.1 mg/dL (2.5-4.9); POTASSIUM 4.3 mmol/L (3.5-5.1)
[2019-08-15 08:27] LABS: BASOPHILS # (AUTO) 0.1 /CMM (0.0-0.2); BASOPHILS % (AUTO) 0.6 % (0.0-2.0); EOSINOPHILS % (AUTO) 0.2 % (0.0-6.0); HEMATOCRIT 34 % (39-51); LYMPHOCYTES # (AUTO) 0.7 /CMM (0.8-4.8); MEAN CORPUSCULAR HGB CONC 33 g/dl (31.0-36.0); MEAN CORPUSCULAR VOLUME 84 fL (80-96); MONOCYTES # (AUTO) 1.4 /CMM (0.1-1.30); MONOCYTES % (AUTO) 11.2 % (2.0-12.0); NEUTROPHILS # (AUTO) 10.1 /CMM (1.8-8.9); PLATELET COUNT (AUTO) 462 /CMM (150-450); RED BLOOD CELL COUNT(AUTO) 4.05 MIL/uL (4.5-6.0); WHITE BLOOD COUNT (AUTO) 12.3 K/uL (4.3-11.0)
[2019-08-15] MEDS: HEPARIN SODIUM, PORCINE 5000 UNITS/1 ML VIAL SQ SCH ×2 (10:00→21:13)
--- NOTE | 2019-08-15 10:01 | NUR ---
rn notes administered morphine sulfate 2 mg/ml iv push for right knee pain 10/17 per patient request, v/s taken bp 140/74, p90, r-19, continued monitoring.
--- NOTE | 2019-08-15 11:00 | NUR ---
RN NOTES PATIENT WITH PT AT THIS TIME, AMBULATE IN THE BATHROOM, MEDICATION WERE ADMINISTERED FOR PAIN EFFECTIVE.
--- NOTE | 2019-08-15 11:56 | NUR ---
RN NOTES GET CALL FROM [facility] PATIENT MRSA OF WOUND.
--- NOTE | 2019-08-15 13:46 | NUR ---
RN NOTES SEEN PATIENT BY YOLI JIMENEZ, NO NEW ORDERS.
--- NOTE | 2019-08-15 14:57 | NUR ---
rn notes get TO order ortho ANGY Tubbs patient NPO midnight, prepare surgery 08/16/1199 fir right knee arthroscopic wash out and drainage, consent form. orders taken and carried out.
[2019-08-15 16:26] VITALS: BP 135/71
--- NOTE | 2019-08-15 17:18 | NUR ---
RN NOTES ADMINISTERED MORPHINE SULFATE 2 MG/ML IV PUSH FOR RIGHT KNEE PAIN 09/16 PER PATIENT REQUEST, V/S TAKEN BP-135/71,P-84,R-17. BS-174 MG/DL COVERAGE GIVEN, CALL LIGHT WITHIN TO REACH. SAFETY PRECAUTION MAINTAINED ALL THE TIME.
--- NOTE | 2019-08-15 18:30 | NUR ---
RN NOTES PATIENT STABLE RESTING IN THE BED. MEDICATION WERE ADMINISTERED FOR PAIN EFFECTIVE, CALL LIGHT WITHIN TO REACH. TOLERATED DINNER WELL. ENDORSED ONCOMING NURSE FOLLOW PLAN OF CARE.
[2019-08-15 20:00] VITALS: BP 130/65
[2019-08-16] MEDS: MORPHINE SULFATE INJ 2 MG/ML DISP.SYRIN IV PRN (03:26)
--- NOTE | 2019-08-16 06:24 | NUR ---
MS RN NOTES AWAKE & RESPONSIVE. NOT IN ANY DISTRESS. NO SOB NOTED. DENIES ANY PAIN OR DISCOMFORT AT THIS TIME. KEPT ON NPO P MN. WITH IV-HL PATENT & INTACT. MONITORED ACCORDINGLY. CALL LIGHT WITHIN REACH. BED IN LOWEST POSITION. SR UP X 3 WITH BED ALARM ON FOR SAFETY. WILL ENDORSE TO NEXT SHIFT.
[2019-08-16] MEDS: BLOOD SUGAR DIAGNOSTIC 1 EACH STRIP VI SCH ×4 (06:31→21:34)
[2019-08-16 06:49] LABS: BASOPHILS # (AUTO) 0.1 /CMM (0.0-0.2); BASOPHILS % (AUTO) 0.6 % (0.0-2.0); EOSINOPHILS % (AUTO) 0.6 % (0.0-6.0); HEMATOCRIT 33 % (39-51); HEMOGLOBIN 10.8 g/dL (13.5-17.5); LYMPHOCYTES % (AUTO) 8.6 % (20.0-44.0); MEAN CORPUSCULAR HGB CONC 33 g/dl (31.0-36.0); MEAN CORPUSCULAR VOLUME 84 fL (80-96); MONOCYTES # (AUTO) 1.3 /CMM (0.1-1.30); MONOCYTES % (AUTO) 11.6 % (2.0-12.0); NEUTROPHILS # (AUTO) 9.1 /CMM (1.8-8.9); NEUTROPHILS % (AUTO) 78.6 % (43.0-81.0); PLATELET COUNT (AUTO) 471 /CMM (150-450); RED BLOOD CELL COUNT(AUTO) 3.97 MIL/uL (4.5-6.0); WHITE BLOOD COUNT (AUTO) 11.6 K/uL (4.3-11.0)
[2019-08-16 07:12] LABS: CALCIUM, SERUM 8.8 mg/dL (8.5-10.1); CREATININE 1.6 mg/dL (0.6-1.3); MAGNESIUM 2.3 mg/dL (1.8-2.4); PHOSPHORUS 3.4 mg/dL (2.5-4.9); POTASSIUM 4.4 mmol/L (3.5-5.1)
--- NOTE | 2019-08-16 07:35 | NUR ---
MS RN OPENING NOTES RECEIVED PT IN BED, ASLEEP, EASILY AROUSED, A/OX 3-4. PT TOLERATING RA, WITH NO ACUTE RESPIRATORY DISTRESS NOTED. PT DENIES ANY PAIN OR DISCOMFORT AT THIS TIME. PT DENIES ANY CONCERNS OR QUESTIONS WELL. RUCHEST WALL PERMACATH NOTED FOR HD ACCESS NOTED. PIV TO RAC 20G, FLUSHED WITH NS, INTACT AND OPERATIONAL. PT CURRENTLY ON NPO, SCHEDULED FOR SURGERY AT 12NONN WITH /PIERRE, PT AWARE. PT KEPT COMFORTABLE. CALL LIGHT KEPT WITHIN REACH. CALL LIGHT KEPT WITHIN REACH. PT'S BED IN LOWEST, LOCKED POSITION WITH SR X3. WILL CONTINUE PLAN OF CARE.
[2019-08-16 08:00] VITALS: BP 144/78
[2019-08-16] MEDS: HEPARIN SODIUM, PORCINE 5000 UNITS/1 ML VIAL SQ SCH ×2 (08:31→20:25)
--- NOTE | 2019-08-16 09:50 | NUR ---
MS RN NOTES RN/NINA AT THE UNIT FOR DIALYSIS. RN/NINA MADE AWARE PT IS GOING TO HAVE SURGERY TODAY AT 12NOON. WILL CONTINUE TO MONITOR.
[2019-08-16 10:14] LABS: LYMPHOCYTES % (MANUAL) 8 % (16-48); MONOCYTES % (MANUAL) 5 % (0-11.0); NEUTROPHILS % (MANUAL) 87 (42-76)
--- NOTE | 2019-08-16 10:35 | NUR ---
MS RN NOTES SEEN AND EVALUATED BY HOSPITALIST/TS, NO ORDERS AT THIS TIME. AWAKRE PT BEING DIALYZED BEFORE SURGERY. WILL CONTINUE TO MONITOR.
--- NOTE | 2019-08-16 11:30 | NUR ---
MS RN NOTES PT JUST FINISHED DIALYSIS. PER RN/NINA, 1L OUTPUT. PT HAS STABLE VITALS. WILL CONTINUE TO MONITOR.
--- NOTE | 2019-08-16 11:55 | NUR ---
MS RN NOTES PT LEFT THE UNIT FOR PROCEDURE AT SURGERY. VS STABLE. PT AWARE. WILL CONTINUE TO MONITOR.
[2019-08-16] MEDS: INSULIN REGULAR, HUMAN 100 UNIT/ML 3 ML VIAL SQ PRN ×2 (11:56→17:34)
[2019-08-16] MEDS ORDERED: POLYMYXIN B SULFATE 500,000 UNITS VIAL IV ONE (11:58)
[2019-08-16] MEDS ORDERED: BACITRACIN 50000 UNITS/VIAL ONE (12:11)
[2019-08-16] MEDS ORDERED: MIDAZOLAM HCL 2 MG/2ML VIAL ONE (12:21)
[2019-08-16] MEDS ORDERED: FAMOTIDINE/PF INJ 20 MG/2 ML VIAL IV ONE (12:22)
[2019-08-16] MEDS ORDERED: FENTANYL PF 100MCG/2ML AMPUL ONE ×3 (12:22→13:55)
[2019-08-16] MEDS ORDERED: IV LR 1000 ML 1,000 ML IV PRN (14:30)
[2019-08-16 14:45] VITALS: BP 146/83
[2019-08-16] MEDS: HYDROCODONE/APAP 5/325MG 1 EACH TABLET PO PRN (14:45)
[2019-08-16] MEDS ORDERED: MORPHINE SULFATE INJ 4 MG/ML DISP.SYRIN IV PRN (15:00)
[2019-08-16] MEDS ORDERED: VANCOMYCIN 1 GM in IV D5W 250 ML IV ONE (15:00)
--- NOTE | 2019-08-16 15:06 | NUR ---
MS RN NOTES PT JUST CAME BACK FROM RECOVERY ROOM. PER SALES AGENT FIRE INSURANCE, ORDERS FAXED TO PHARMACY. PT REQUESTED PAIN MEDICINE NORCO 5/325 ERIBERTO. WILL CONTINUE TO MONITOR. VS STABLE.
[2019-08-16] MEDS ORDERED: HYDROMORPHONE 1 MG/1 ML DISP.SYRIN IV PRN (17:00)
[2019-08-16] MEDS ORDERED: oxyCODONE/APAP (5/325 MG) 1 UDTAB TABLET PO PRN (17:00)
[2019-08-16] MEDS ORDERED: oxyCODONE IR immediate release 5 MG PO PRN (18:30)
--- NOTE | 2019-08-16 18:50 | NUR ---
MS RN CLOSING NOTES PT REMAINS IN BED, AWAKE, A/OX 3-4. PT TOLERATING RA, WITH NO ACUTE RESPIRATORY DISTRESS NOTED. PT DENIES ANY PAIN OR DISCOMFORT AT THIS TIME. PT DENIES ANY CONCERNS OR QUESTIONS WELL. RU CHEST WALL PERMACATH NOTED FOR HD ACCESS NOTED. IVF LR AT 75ML/HR TO RAC 20G, FLUSHED WITH NS, INTACT AND OPERATIONAL. RIGHT KNEE DRESSING DRY AND INTACT, IMMOBILIZER PRESENT. PT KEPT COMFORTABLE. ALL NEEDS AND CARE ATTENDED. CALL LIGHT KEPT WITHIN REACH. CALL LIGHT KEPT WITHIN REACH. PT'S BED IN LOWEST, LOCKED POSITION WITH SR X3. WILL ENDORSE TO INCOMING NIGHT NURSE FOR MESSI.
--- NOTE | 2019-08-16 19:36 | NUR ---
rECEIVED IN BED ALERT AND ORIENTATED x3. NOTED THE IMMOBILIZER IS OFF AND PATIENTS STATED IT WAS TOO TIGHT AND HE DIDN'T FEEL COMFORTABE WITH IT ON. EXPLAINED TO HIM WHY IT WAS PLACED AND THE IMPORTANCE HE REFUSED TO HAVE IT REAPPLIED
[2019-08-16 20:11] VITALS: BP 135/77
[2019-08-16] MEDS: HYDROMORPHONE 1 MG/1 ML DISP.SYRIN IV PRN ×2 (20:14→22:53)
[2019-08-16] MEDS: *INSULIN REGULAR(HUMULIN R)HUM 100 UNIT/ML VIAL SQ PRN (21:38)
[2019-08-17] MEDS: HYDROMORPHONE 1 MG/1 ML DISP.SYRIN IV PRN ×6 (02:25→22:53)
--- NOTE | 2019-08-17 04:57 | NUR ---
PATIENT REFUSED TO KEEP THE IMMOBILIZER ON. EXPLAINED TO HIM THE IMPORTANCE AND WHY THE MD CHOSE TO PLACE IT. ABOUT 0300 HE PUT THE STRAPS ON AND SECURED IT LOOSELY. TOES WARM AND MOVABLE. PPP. VAC CONTAINER ZERO OUT PUT ACTIVATED. ATTEMPTED TO HAVE THE PATIENT IN GOOD ALIGNMENT IN THE BED AND MOVE HE REFUSED. OFFERED TO PUT THE LEG ON A PILLOW HE REFUSED. MEDICATED WIT DILAUDID 1 MG IV Q 3 HOURS FOR RIGHT KNEE PAIN AND NOTED HE WOULD DROP OFF TO SLEEP IN BETWEEN MEDICATION
[2019-08-17] MEDS: BLOOD SUGAR DIAGNOSTIC 1 EACH STRIP VI SCH ×4 (06:27→22:31)
[2019-08-17] MEDS: INSULIN REGULAR, HUMAN 100 UNIT/ML 3 ML VIAL SQ PRN ×2 (06:31→11:28)
[2019-08-17 07:01] LABS: BASOPHILS # (AUTO) 0.1 /CMM (0.0-0.2); BASOPHILS % (AUTO) 0.4 % (0.0-2.0); EOSINOPHILS % (AUTO) 0.2 % (0.0-6.0); HEMATOCRIT 30 % (39-51); HEMOGLOBIN 10.1 g/dL (13.5-17.5); LYMPHOCYTES # (AUTO) 0.8 /CMM (0.8-4.8); LYMPHOCYTES % (AUTO) 6.7 % (20.0-44.0); MEAN CORPUSCULAR HGB CONC 33 g/dl (31.0-36.0); MEAN CORPUSCULAR VOLUME 84 fL (80-96); MONOCYTES # (AUTO) 1.6 /CMM (0.1-1.30); MONOCYTES % (AUTO) 12.5 % (2.0-12.0); NEUTROPHILS # (AUTO) 10.1 /CMM (1.8-8.9); NEUTROPHILS % (AUTO) 80.2 % (43.0-81.0); PLATELET COUNT (AUTO) 412 /CMM (150-450); RED BLOOD CELL COUNT(AUTO) 3.62 MIL/uL (4.5-6.0); WHITE BLOOD COUNT (AUTO) 12.6 K/uL (4.3-11.0)
[2019-08-17 07:17] LABS: CALCIUM, SERUM 8.3 mg/dL (8.5-10.1); CREATININE 1.7 mg/dL (0.6-1.3); MAGNESIUM 2.2 mg/dL (1.8-2.4); PHOSPHORUS 3.7 mg/dL (2.5-4.9); POTASSIUM 4.6 mmol/L (3.5-5.1)
--- NOTE | 2019-08-17 07:42 | NUR ---
MS RN NOTES RECEIVED PT IN BED, ASLEEP, EASILY AROUSED, A/OX 3-4. PT TOLERATING RA, WITH NO ACUTE RESPIRATORY DISTRESS NOTED. PT DENIES ANY PAIN OR DISCOMFORT AT THIS TIME. PT DENIES ANY CONCERNS OR QUESTIONS WELL. RUCHEST WALL PERMACATH NOTED FOR HD ACCESS NOTED. PIV TO RAC 20G, FLUSHED WITH NS, INTACT AND OPERATIONAL. R LEG IMMOBILIZER AND TO ELEVATE RIGHT LEG ON A PILLOW, REFUSED BY PT. RISKS AND BENEFITS MADE AWARE, STILL INSIST TO REFUSE. PT KEPT COMFORTABLE. CALL LIGHT KEPT WITHIN REACH. CALL LIGHT KEPT WITHIN REACH. PT'S BED IN LOWEST, LOCKED POSITION WITH SR X3. WILL CONTINUE PLAN OF CARE.
[2019-08-17 08:00] VITALS: BP 135/74
--- NOTE | 2019-08-17 09:45 | NUR ---
MS RN NOTES PT SEEN BY PA/CC CHANGED DRESSING TO RIGHT LEG AND REMOVED HEMOVAC, NO OUTPUT PRESENT WILL CONTINUE TO MONITOR.
[2019-08-17] MEDS: HEPARIN SODIUM, PORCINE 5000 UNITS/1 ML VIAL SQ SCH ×2 (10:19→21:22)
[2019-08-17 16:00] VITALS: BP 134/64
[2019-08-17] MEDS ORDERED: BISACODYL SUPP (10 MG) 10 MG/SUPP.RECT SUPP.RECT RC PRN (17:30)
[2019-08-17] MEDS ORDERED: LACTULOSE 10 G/15 ML UDC (PYXIS) PO PRN (17:30)
--- NOTE | 2019-08-17 18:40 | NUR ---
MS RN NOTES PT REMAINS IN BED, INTERMITTENTLY DOZING OFF, A/OX 3-4. PT TOLERATING RA, WITH NO ACUTE RESPIRATORY DISTRESS NOTED. PT DENIES ANY PAIN OR DISCOMFORT AT THIS TIME. RUCHEST WALL PERMACATH NOTED FOR HD ACCESS NOTED. PIV TO RFA 20G, FLUSHED WITH NS, INTACT AND OPERATIONAL. R LEG IMMOBILIZER PRESENT AND PILLOW FOR ELEVATION. PT KEPT COMFORTABLE. ALL NEEDS AND CARE ATTENDED. CALL LIGHT KEPT WITHIN REACH. CALL LIGHT KEPT WITHIN REACH. PT'S BED IN LOWEST, LOCKED POSITION WITH SR X3. WILL ENDORSE TO INCOMING NIGHT NURSE FOR MESSI.
--- NOTE | 2019-08-17 19:00 | NUR ---
RN NOTES: RECEIVED AWAKE IN BED, A/OX4, ORIENTATED TO UNIT AND STAFF, IV CANNULA ON THE RFA G#20 INTACT AND PATENT, HE HAS PERMA CATH ON THE RIGHT UPPER CHEST WALL, DIALYSIS DONE YESTERDAY OUTPUT 1L, WBAT, KNEE IMMOBILIZER ON BED SIDE, EXPLAINED TO HIM HE NEEDS TO PUT IT ON AT ALL TIMES, HE SAID "LATER", FALL, SAFETY AND ASPIRATION PRECAUTION OBSERVED, BED LOW AND LOCKED, CALL LIGHT KEPT WITHIN EASY REACH.
--- NOTE | 2019-08-17 19:34 | NUR ---
RN NOTES: COMPLAINED OF PAIN 10/10 ON THE RIGHT KNEE S/P RIGHT KNEE ANTHROPOSCOPIC WASH OUT AND DRAINAGE, PRN PAIN MEDICATION, BP-140/74 MS-100 SPO2-96% NON PHARMACOLOGIC INTERVENTION RENDERED, SUCH POSITIONING, DIM LIT, AND GIVING WARM BLANKET, KEPT CALL LIGHT WITHIN EASY REACH.
--- NOTE | 2019-08-17 19:58 | NUR ---
RN NOTES: PATIENT RE-ASSESSED HE SAID HE FEELS MUCH BETTER, BUT STILL IN PAIN, GIVEN TIME TO REST AND INSTRUCT TO CALL, KEPT CALL LIGHT WITHIN EASY REACH, OFFERED DRINKS AND SNACKS. Addendum: 08/17/19 at 2018 by LINA TOMPKINS RN ADDED NOTES: PAIN LEVEL 7/10 LATEST ME-95 RR-20 SPO2-96% NO SIGN OF RESPIRATORY DISTRESS.
[2019-08-17 20:00] VITALS: BP 140/72
[2019-08-17 20:24] VITALS: BP 140/72
[2019-08-17] MEDS: *INSULIN REGULAR(HUMULIN R)HUM 100 UNIT/ML VIAL SQ PRN (21:33)
--- NOTE | 2019-08-17 21:54 | NUR ---
RN NOTES: -AT 2200 BLOOD SUGAR CHECKED- 272, INSULIN GIVEN PER SCALE, WILL CONTINUE TO MONITOR FOR ANY SIGN OF HYPER/HYPOGLYCEMIA. KEPT ON CLOSE WATCH, HE IS ASLEEP IN BETWEEN, KEPT CALL LIGHT WITHIN EASY REACH.
--- NOTE | 2019-08-17 23:01 | NUR ---
RN NOTES: REQUEST FOR A SNACK, HE WAS REPOSITIONED, HE REQUEST AGAIN FOR HIS PAIN MEDICATION,11/16, PRN MEDS GIVEN,NON PHARMACOLOGIC INTERVENTION RENDERED WARM BLANKET PROVIDED, SOFT MUSIC PLAYED.KEPT CALL LIGHT WITHIN EASY REACH. Addendum: 08/17/19 at 2304 by LINA TOMPKINS RN ADDED NOTES: V/S PRIOR TO PAIN MEDICATION CHECK BP-148/71 UT-91 RR-20 SPO2-99% RA.
[2019-08-18] MEDS: HYDROMORPHONE 1 MG/1 ML DISP.SYRIN IV PRN ×7 (01:57→21:23)
--- NOTE | 2019-08-18 02:53 | NUR ---
RN NOTES: -AT 0157 HE WAS AWAKE AND CALLED FOR ASSISTANCE, GIVEN SNACKS AND HE ASK FOR HIS PAIN MEDICATION, PAIN 10/10 ON THE RIGHT KNEE.KEPT IN COMFORTABLE POSITION.NON PHARMACOLOGIC INTERVENTION RENDERED.
--- NOTE | 2019-08-18 05:37 | NUR ---
RN NOTES: ABLE TO SLEEP AND REST AT 0500 AWAKE AND ASKED FOR HIS PAIN MEDICATION 11/16, RN ASKED IF HE IS NOT RELIEVED BY THE PAIN RELIEVER,HE SAID, IT HAS AN EFFECT IT HELP TO LESSEN THE PAIN, BUT ONCE HE WAKE UP AND STARTED TO MOVE HE FELT THE PAIN AGAIN ESPECIALLY AFTER HE USE THE URINAL TO PEE.GIVEN MEDICATION PER PATIENT REQUEST.V/S CHECKED BP-135/70 IN-91 SPO2-95%RA.
--- NOTE | 2019-08-18 06:23 | NUR ---
RN NOTES: ABLE TO SLEEP, TOTAL URINE OUTPUT 600CC, AFEBRILE THE ENTIRE SHIFT, SPO2 95% NO SIGN OF RESPIRATORY DISTRESS, NON LABORED BREATHING, BLOOD TEST DONE AND FOR DISCHARGE PLANNING IN THE MORNING, FOR PT EVALUATION, CALLS AND NEEDS ATTENDED, BED LOW AND LOCKED, CALL LIGHT KEPT WITHIN EASY REACH, RD F/U ON 08/21/19, TO F/U IV/ATB. ENDORSED FOR CONTINUITY OF CARE.
[2019-08-18 06:50] LABS: CALCIUM, SERUM 8.7 mg/dL (8.5-10.1); CREATININE 1.4 mg/dL (0.6-1.3); POTASSIUM 4.4 mmol/L (3.5-5.1)
--- NOTE | 2019-08-18 07:37 | NUR ---
MS RN OPENING NOTE RECEIVED PATIENT IN BED RESTING COMFORTABLY. PATIENT IN NO ACUTE DISTRESS. NO SOB NOTED. PATIENT BREATHING IS EVEN AND UNLABORED. PATIENT REFUSING TO WEAR RIGHT KNEE IMMOBILIZER. EDUCATED RISKS VS BENEFITS BUT PATIENT CONTINUED TO REFUSE. PATIENT BED ALARM IS ON. SAFETY PRECAUTIONS IN PLACE. PATIENT BED IS LOCKED AND IN LOWEST POSITION. CALL LIGHT WITHIN REACH. WILL CONTINUE TO MONITOR.
[2019-08-18 08:00] VITALS: BP 134/63
[2019-08-18] MEDS: BLOOD SUGAR DIAGNOSTIC 1 EACH STRIP VI SCH ×4 (08:09→21:22)
[2019-08-18] MEDS: INSULIN REGULAR, HUMAN 100 UNIT/ML 3 ML VIAL SQ PRN ×3 (08:17→17:39)
[2019-08-18] MEDS: HEPARIN SODIUM, PORCINE 5000 UNITS/1 ML VIAL SQ SCH ×2 (08:17→20:30)
--- NOTE | 2019-08-18 08:30 | NUR ---
MS RN NOTE PATIENT TEMPERATURE 99.5F. IMPLEMENTED COOLING MEASURES.
--- NOTE | 2019-08-18 11:27 | NUR ---
MS RN NOTE RIGHT KNEE DRESSING CAME OFF BY ACCIDENT DURING MOVEMENT IN BED AND GOT CAUGHT UP IN SHEETS PER PATIENT DURING DIALYSIS. RIGHT KNEE DRESSING REPLACED AND KEPT CLEAN AND DRY.
--- NOTE | 2019-08-18 12:52 | NUR ---
MS RN NOTE MD ORDER FROM ISHMAEL DUCKWORTH FOR PATIENT TO HAVE PICC LINE INSERTION FOR ASSISTED IV ANTIBIOTICS. NURSING GRAPPLE YARDER OPERATOR ENEIDA MADE AWARE AND PLAN FOR PICC LINE NURSE TO COME FOR INSERTION.
[2019-08-18] MEDS ORDERED: VANCOMYCIN 1.25 GM in IV D5W 250 ML IV ONE (15:00)
[2019-08-18 16:00] VITALS: BP 157/76
--- NOTE | 2019-08-18 18:19 | NUR ---
MS RN NOTE AMISHA RN INSERTED PICC LINE TO UPPER RIGHT ARM, VERIFIED WITH CHEST XRAY IMAGE PER AMISHA. PICC LINE IS PATENT AND INTACT.
--- NOTE | 2019-08-18 18:52 | NUR ---
MS RN CLOSING NOTE PATIENT IN BED RESTING COMFORTABLY. PATIENT IN NO ACUTE DISTRESS. NO SOB NOTED. PATIENT BREATHING IS EVEN AND UNLABORED. PATIENT REFUSING TO WEAR RIGHT KNEE IMMOBILIZER THROUGHOUT SHIFT. EDUCATED RISKS VS BENEFITS BUT PATIENT CONTINUED TO REFUSE. PATIENT SURGICAL DRESSING DRY AND INTACT. PATIENT KEPT CLEAN, DRY AND COMFORTABLE THROUGHOUT SHIFT. PATIENT BED ALARM IS ON. SAFETY PRECAUTIONS IN PLACE. PATIENT BED IS LOCKED AND IN LOWEST POSITION. CALL LIGHT WITHIN REACH. WILL ENDORSE CARE TO PM SHIFT FOR MESSI.
[2019-08-18 20:00] VITALS: BP 139/79
--- NOTE | 2019-08-18 20:00 | NUR ---
MS RN OPENING NOTES RECEIVED PATIENT IN BED, AWAKE, CONSCIOUS, COOPERATIVE, BREATHING AT ROOM AIR, UNLABORED BREATHING, NO SIGNS OF RESPIRATORY DISTRESS, RIGHT CHEST WALL PERMACATH, HD- 1L OUT DONE TODAY ENDORSED BY AM SHIFT NURSE, PICC LINE AT [facility], PATIENT'S BED ALARM IS ON, SIDE RAILS UP FOR SAFETY.
[2019-08-18] MEDS: *INSULIN REGULAR(HUMULIN R)HUM 100 UNIT/ML VIAL SQ PRN (21:39)
[2019-08-19] MEDS: HYDROMORPHONE 1 MG/1 ML DISP.SYRIN IV PRN ×5 (00:24→13:10)
[2019-08-19] MEDS: BLOOD SUGAR DIAGNOSTIC 1 EACH STRIP VI SCH ×2 (06:31→11:05)
[2019-08-19] MEDS: INSULIN REGULAR, HUMAN 100 UNIT/ML 3 ML VIAL SQ PRN ×2 (06:37→11:32)
[2019-08-19 06:44] LABS: CALCIUM, SERUM 8.7 mg/dL (8.5-10.1); CREATININE 1.4 mg/dL (0.6-1.3); POTASSIUM 4.2 mmol/L (3.5-5.1)
--- NOTE | 2019-08-19 06:44 | NUR ---
MS RN CLOSING NOTES ENDORSED PATIENT IN BED, AWAKE, CONSCIOUS, COOPERATIVE, BREATHING AT ROOM AIR, UNLABORED BREATHING, NO SIGNS OF RESPIRATORY DISTRESS, RIGHT CHEST WALL PERMACATH, HD- 1L OUT DONE TODAY ENDORSED BY AM SHIFT NURSE, PICC LINE AT [facility], NO REDNESS OR INFILTRATION NOTED, PATIENT'S BED ALARM IS ON, SIDE RAILS UP FOR SAFETY, DUE MEDS GIVEN, PATIENT REFUSED SPONGED BATH DURING OUR BAIT DIGGER.
[2019-08-19 08:00] VITALS: BP 147/71
[2019-08-19] MEDS: HEPARIN SODIUM, PORCINE 5000 UNITS/1 ML VIAL SQ SCH (08:32)
[2019-08-19] MEDS ORDERED: HYDR-4354 PO (14:01)
[2019-08-19] MEDS ORDERED: VANC500F2 IV (14:01)
[2019-08-19] MEDS ORDERED: ATOR20TA PO (14:01)
--- NOTE | 2019-08-19 14:12 | NUR ---
MS [place] NOTE PER ISHMAEL DONITA TO RECEIVE VANCOMYCIN DOSE TODAY WITH PHARMACY TO DOSE PER ISHMAEL DONITA BECAUSE HOME HEALTH WONT BE AVAILABLE TO GIVE DOSE TODAY PER ISHMAEL. Addendum: 08/19/19 at 1456 by JYOTI RUANO RN MS [place] NOTE PER ISHMAEL DONITA TO RECEIVE VANCOMYCIN DOSE TODAY WITH PHARMACY TO DOSE PER ISHMAEL DONITA BECAUSE HOME HEALTH WONT BE AVAILABLE TO GIVE DOSE TODAY PER ISHMAEL. PER PHARMACY [facility]ER[facility]ING WILL DOSE BASED ON VANCO TROUGH LEVEL.
[2019-08-19] MEDS ORDERED: VANCOMYCIN 1 GM in IV D5W 250 ML IV ONE (15:00)
--- NOTE | 2019-08-19 15:31 | NUR ---
MS RN NOTE PER ALBERTA NATURAL RESOURCE OFFICER SHE SPOKE WITH ISHMAEL DUCKWORTH REGARDING THE SANITATION LEAD ANTIBIOTICS. PATIENT IS TO RECEIVE AFTER DIALYSIS AT [facility] AND THAT HOME HEALTH IS NO LONGER NEEDED. PER ALBERTA, ISHMAEL STATED IT WAS OKAY TO DC PICC LINE IT IS NO LONGER NEEDED FOR HOME.
[2019-08-19 16:00] VITALS: BP 133/64
--- NOTE | 2019-08-19 16:20 | NUR ---
MS CORRECTIVE THERAPY AIDE TEACHER NOTE PATIENT MEDICALLY CLEARED FOR DISCHARGE. PATIENT IN NO ACUTE DISTRESS. NO SOB NOTED. PATIENT BREATHING IS EVEN AND UNLABORED. DC INSTRUCTIONS PROVIDED TO PATIENT AND PATIENTS BROTHER. PATIENT AND BROTHER VERBALIZED UNDERSTANDING. PATIENT SKIN ASSESSED, NO NEW SKIN BREAKDOWN NOTED. PATIENT HAS BELONGINGS WITH HIM AND SIGNED BELONGINGS LIST. PATIENT IN COMPLIANCE WITH RIGHT KNEE IMMOBILIZER AND HAS CRUTCHES WITH HIM. PATIENT IV PICC LINE REMOVED. ID BAND REMOVED. PATIENT KEPT CLEAN, DRY, AND COMFORTABLE THROUGHOUT SHIFT. PATIENT NEEDS AND CONCERNS ADDRESSED. PATIENT GOING BY WHEELCHAIR TO GO WITH BROTHER BACK HOME. MD AWARE OF DISCHARGE.
== END 2019-08-19 16:20 | disposition home or self-care (01) | DRG 313 ==
LOC: ER 11:11 → MEDSG2 14:02
PROVIDERS: ADMIT Student in an Organized Health Care Education/Training Program; ATTEND Nurse Practitioner Acute Care
PROC: 0S9C3ZZ Drainage of Right Knee Joint, Percutaneous Approach (ICD-10-PCS; principal; 2019-08-12)
PROC: 0SBC4ZZ Excision of Right Knee Joint, Percutaneous Endoscopic Approach (ICD-10-PCS; principal; 2019-08-12)
PROC: 5A1D70Z Performance of Urinary Filtration, Intermittent, Less than 6 Hours Per Day (ICD-10-PCS; 2019-08-14)
PROC: B548ZZA Ultrasonography of Superior Vena Cava, Guidance (ICD-10-PCS; 2019-08-18)
PROC: 02HV33Z Insertion of Infusion Device into Superior Vena Cava, Percutaneous Approach (ICD-10-PCS; 2019-08-18)
DX: M00.9 Pyogenic arthritis, unspecified (principal); E11.22 Type 2 diabetes mellitus with diabetic chronic kidney disease; I12.0 Hypertensive chronic kidney disease with stage 5 chronic kidney disease or end stage renal disease; N18.6 End stage renal disease; E87.1 Hypo-osmolality and hyponatremia; D72.829 Elevated white blood cell count, unspecified; Z99.2 Dependence on renal dialysis; Z79.51 Long term (current) use of inhaled steroids; Z79.4 Long term (current) use of insulin; Z79.899 Other long term (current) drug therapy; I25.10 Atherosclerotic heart disease of native coronary artery without angina pectoris; D63.1 Anemia in chronic kidney disease; E66.01 Morbid (severe) obesity due to excess calories; Z68.31 Body mass index [BMI] 31.0-31.9, adult; Z95.1 Presence of aortocoronary bypass graft; Z83.3 Family history of diabetes mellitus; S83.281A Other tear of lateral meniscus, current injury, right knee, initial encounter; X58.XXXA Exposure to other specified factors, initial encounter; Y92.9 Unspecified place or not applicable; M65.9 Synovitis and tenosynovitis, unspecified; W18.2XXA Fall in (into) shower or empty bathtub, initial encounter; Y92.69 Other specified industrial and construction area as the place of occurrence of the external cause; B95.62 Methicillin resistant Staphylococcus aureus infection as the cause of diseases classified elsewhere; M10.9 Gout, unspecified
CPT/HCPCS: 36415; 71045-TC; 73564-TC; 80048-TC; 80061-TC; 80202-TC; 82962-TC; 83605-TC; 83615-TC; 83735-TC; 84100-TC; 84155-TC; 84443-TC; 85025-TC; 85610-TC; 85652-TC; 86706; 86850-TC; 87070-TC; 87075-TC; 87081-TC; 87340; 88108-TC; 88305-TC; 89060-TC; 90935-TC; 93971-TC; 97116-TC; 97530-TC; A4217; A6253; A6403; C1751; G0378; J0690; J1170; J1644; J1815; J2250; J2270; J2405; J2543; J2704; J2765; J3010; J3370; J3490; J7050; J7060; J7120; U0003-CS

== ENCOUNTER 2020-01-29 07:17 | Emergency (ER) | payer OTHER ==
[~2020-01-29] VITALS: Ht 170.2 cm; Wt 86.2 kg
[~2020-01-29 07:17] MED LIST changes: -ACET325T53 MC; -ALBU2.5V11 INH; +ATOR20TA PO; -BISA10SU61 RC; -BLOO-668 IN; -CHOL200059 PO; -DOCU-141 PO; -FURO80TA85 PO; +HYDR-4354 PO; -HYDR-4384 PO; -INSU100V3 SQ; -IPRA0.2S9 IH; -MAGN400O6 PO; -METO25TA6 PO; -SENN-261 PO; -SEVE800T8 PO; +VANC500F2 IV
--- NOTE | 2020-01-29 07:50 | NUR ---
assume pt care. resting in bed. here for worsening R shoulder pain. was at dialysis today. pt seen by hipolito. stable vitals.
[2020-01-29 08:10] LABS: BASOPHILS % (AUTO) 0.1 % (0.0-2.0); HEMATOCRIT 31 % (39-51); HEMOGLOBIN 10.5 g/dL (13.5-17.5); LYMPHOCYTES # (AUTO) 0.4 /CMM (0.8-4.8); LYMPHOCYTES % (AUTO) 2.4 % (20.0-44.0); MEAN CORPUSCULAR HGB CONC 34 g/dl (31.0-36.0); MEAN CORPUSCULAR VOLUME 87 fL (80-96); MONOCYTES # (AUTO) 1.8 /CMM (0.1-1.30); MONOCYTES % (AUTO) 11.5 % (2.0-12.0); NEUTROPHILS # (AUTO) 13.1 /CMM (1.8-8.9); PLATELET COUNT (AUTO) 164 /CMM (150-450); RED BLOOD CELL COUNT(AUTO) 3.52 MIL/uL (4.5-6.0); WHITE BLOOD COUNT (AUTO) 15.2 K/uL (4.3-11.0)
[2020-01-29 08:18] LABS: CALCIUM, SERUM 8.1 mg/dL (8.5-10.1); CARBON DIOXIDE 21 mmol/L (21-32); CHLORIDE 91 mmol/L (98-107); CREATININE 2.6 mg/dL (0.6-1.3); GLUCOSE 276 mg/dL (74-106); POTASSIUM 3.6 mmol/L (3.5-5.1); SODIUM SERUM 126 mmol/L (136-145); UREA NITROGEN, BLOOD 36 mg/dL (7-18)
--- NOTE | 2020-01-29 10:50 | NUR ---
pt is ambulatory w/ stable gait. instructed to follow up, make appointment to have dialysis. Patient discharged to home in stable condition. Written and verbal after care instructions given. Patient verbalizes understanding of instruction.
[2020-01-29 10:52] VITALS: BP 148/76
== END 2020-01-29 10:53 | disposition home or self-care (01) ==
LOC: ER 07:25
DX: M25.511 Pain in right shoulder (principal); I12.0 Hypertensive chronic kidney disease with stage 5 chronic kidney disease or end stage renal disease; E11.22 Type 2 diabetes mellitus with diabetic chronic kidney disease; N18.6 End stage renal disease; Z99.2 Dependence on renal dialysis; Z79.899 Other long term (current) drug therapy
CPT/HCPCS: 36415; 71045-TC; 73030-TC; 80048-TC; 84484-TC; 85025-TC; 93971-TC

== ENCOUNTER 2020-02-03 06:34 | Emergency (ER) | payer OTHER ==
[~2020-02-03] VITALS: Ht 170.2 cm; Wt 90.7 kg
[2020-02-03 06:35] VITALS: BP 126/62
--- NOTE | 2020-02-03 06:52 | NUR ---
JIMMY DIAZ AT BEDSIDE TO MARY OLIVAS.
== END 2020-02-03 07:03 | disposition home or self-care (01) ==
LOC: ER 06:37
DX: G89.29 Other chronic pain (principal); I12.0 Hypertensive chronic kidney disease with stage 5 chronic kidney disease or end stage renal disease; E11.22 Type 2 diabetes mellitus with diabetic chronic kidney disease; N18.6 End stage renal disease; Z99.2 Dependence on renal dialysis; Z79.899 Other long term (current) drug therapy

== ENCOUNTER 2020-02-05 06:16 | Inpatient (IN) | payer OTHER ==
[2020-02-05] VITALS (14 sets, daily range): BP systolic 97–143; BP diastolic 46–75
[~2020-02-05] VITALS: Ht 180.3 cm; Wt 98.4 kg
--- NOTE | 2020-02-05 06:20 | NUR ---
pt noted at 88% room air , pt placed on 15LNRB improved to 98%. will continue to monitor pt 02 sat.
--- NOTE | 2020-02-05 06:25 | NUR ---
pt was BIBRA from a dialysis center for c/o SOB. unable to complete dialysis settion, pt was placed on a non rebreather on 15 L of O2. o2 sat increased from 80s on R/A to 100%. pt appears lethargic but still responsive to verbal questions. pt was placed on monitor and IV lines started. will cont to monitor
[2020-02-05 06:49] LABS: BASOPHILS # (AUTO) 0.1 /CMM (0.0-0.2); BASOPHILS % (AUTO) 0.2 % (0.0-2.0); EOSINOPHILS % (AUTO) 0.1 % (0.0-6.0); HEMATOCRIT 32 % (39-51); HEMOGLOBIN 10.1 g/dL (13.5-17.5); LYMPHOCYTES # (AUTO) 0.9 /CMM (0.8-4.8); LYMPHOCYTES % (AUTO) 1.8 % (20.0-44.0); MEAN CORPUSCULAR HGB CONC 31 g/dl (31.0-36.0); MEAN CORPUSCULAR VOLUME 94 fL (80-96); MONOCYTES # (AUTO) 1.9 /CMM (0.1-1.30); NEUTROPHILS # (AUTO) 44.1 /CMM (1.8-8.9); NEUTROPHILS % (AUTO) 93.9 % (43.0-81.0); PLATELET COUNT (AUTO) 233 /CMM (150-450); RED BLOOD CELL COUNT(AUTO) 3.44 MIL/uL (4.5-6.0)
--- NOTE | 2020-02-05 06:58 | NUR ---
x ray at bed side
[2020-02-05 07:09] LABS: CALCIUM, SERUM 7.9 mg/dL (8.5-10.1); CARBON DIOXIDE 15 mmol/L (21-32); CHLORIDE 88 mmol/L (98-107); CREATININE 3.4 mg/dL (0.6-1.3); POTASSIUM 4.2 mmol/L (3.5-5.1); SODIUM SERUM 121 mmol/L (136-145)
--- NOTE | 2020-02-05 07:13 | NUR ---
flu and covid swabs collected. called lab for hop picker
[2020-02-05 07:18] LABS: UREA NITROGEN, BLOOD 84 mg/dL (7-18)
[2020-02-05 07:19] LABS: ALANINE AMINOTRANSFERASE 11 U/L (12-78); ALKALINE PHOSPHATASE 213 U/L (46-116); ASPARTATE AMINOTRANSFERASE 20 U/L (15-37); B-TYPE NATRIURETIC PEPTIDE 2290 PG/ML (0-125); GLUCOSE 676 mg/dL (74-106); TOTAL PROTEIN, SERUM 7.3 g/dL (6.4-8.2)
[2020-02-05] MEDS ORDERED: CEFEPIME 1 GM in IV D5W 50 ML IV ONE (07:30)
[2020-02-05] MEDS ORDERED: INSULIN REGULAR, HUMAN 100 UNIT/ML 10 ML VIAL SQ ONE (07:30)
[2020-02-05] MEDS ORDERED: VANCOMYCIN 1 GM in IV D5W 250 ML IV ONE (07:30)
--- NOTE | 2020-02-05 07:36 | NUR ---
patient in bed, hooked to NRB at 15LPM. o2 saturation at 98%. will continue to monitor accordingly
[2020-02-05 07:39] LABS: ALBUMIN 1.4 g/dL (3.4-5.0)
[2020-02-05 07:41] LABS: CREATINE KINASE, TOTAL 71 U/L (39-308)
[2020-02-05 07:47] LABS: FERRITIN 6022 ng/mL (8-388)
[2020-02-05] MEDS ORDERED: FENTANYL PF 100MCG/2ML AMPUL ONE (07:49)
[2020-02-05 07:55] LABS: ABG BASE EXCESS -7.8 mmol/L; ABG OXYGEN SATURATION 98.5 % (92.0-98.5); ABG PCO2 24.4 mmHg (35.0-45.0); ABG PH 7.415 (7.350-7.450); ABG PO2 136.4 mmHg (75.0-100.0); AaDO2 552.2 mmHg; COHb 0.1 % (0.5-1.5); MetHb 0.3 % (0.0-1.5); O2Hb 98.1 % (94.0-97.0); SITE, ABG Right Radial; VENT MODE, BG NRB 100%
[2020-02-05] MEDS ORDERED: IV NS 0.9% 1,000 ML IV ONE (08:00)
[2020-02-05] MEDS ORDERED: ALBUMIN 25% 100 ML IV ONE (08:17)
--- NOTE | 2020-02-05 08:20 | NUR ---
MOVE SHEET SUBMITTED AND CALLED FOR ICU BED.
[2020-02-05 08:21] LABS: C-REACTIVE PROTEIN 49.5 mg/dL (0.0-0.9)
[2020-02-05] MEDS ORDERED: ALBUMIN 25% 12.5 GM/50 ML BOTTLE IV ONE (08:30)
[2020-02-05] MEDS ORDERED: ATOR20TA PO (08:39)
[2020-02-05] MEDS ORDERED: NIFE-34 PO (08:39)
--- NOTE | 2020-02-05 08:47 | NUR ---
[facility] CALLED ABLE BODIED WATCHMAN PAGED.
[2020-02-05] MEDS ORDERED: VANCOMYCIN 1 GM VIAL ONE (08:53)
[2020-02-05] MEDS ORDERED: INSULIN REGULAR, HUMAN 100 UNIT/ML 10 ML VIAL ONE (08:53)
[2020-02-05] MEDS ORDERED: HUM10VIA SQ (09:09)
[2020-02-05] MEDS ORDERED: INSU100V7 SQ (09:09)
--- NOTE | 2020-02-05 09:27 | NUR ---
[facility] [phone] [facility] [phone]
[2020-02-05 09:50] LABS: BILIRUBIN,DIRECT 1.7 mg/dL (0.0-0.2)
--- NOTE | 2020-02-05 11:47 | NUR ---
REPORT GIVEN TO SHANNAN OF ICU
--- NOTE | 2020-02-05 11:59 | NUR ---
RECEIVED PHONE REPORT FROM ARNULFO IN ER.
[2020-02-05] MEDS ORDERED: PIPERACILLIN /TAZOBACTAM 3.375 G in IV D5W 50 ML IV SCH (13:30)
[2020-02-05 13:37] LABS: BAND % (MANUAL) 4 % (0.0-5.0); LYMPHOCYTES % (MANUAL) 4 % (16-48); MONOCYTES % (MANUAL) 6 % (0-11.0); MYELOCYTES % 1 % (0-0); NEUTROPHILS % (MANUAL) 85 (42-76)
[2020-02-05] MEDS: HEPARIN SODIUM, PORCINE 5000 UNITS/1 ML VIAL SQ SCH ×2 (13:50→18:42)
[2020-02-05] MEDS: DEXAMETHASONE SOD PHOSPHATE 10 MG/ML VIAL IV SCH (13:50)
[2020-02-05] MEDS ORDERED: Z GUARD REMEDY 2 OZ OINT TP PRN (14:30)
[2020-02-05] MEDS ORDERED: ONDANSETRON HCL/PF 4 MG/2 ML VIAL IVP PRN (14:30)
[2020-02-05] MEDS ORDERED: ENOXAPARIN SODIUM 40 MG/0.4 ML DISP.SYRIN SQ SCH (14:30)
[2020-02-05] MEDS: IV NS 0.9% 1,000 ML IV PRN (14:57)
[2020-02-05] MEDS: PIPERACILLIN /TAZOBACTAM 2.25 G in IV D5W 50 ML IV SCH ×2 (14:58→20:08)
[2020-02-05] MEDS: PANTOPRAZOLE 40 MG TABLET.DR PO SCH (14:58)
--- NOTE | 2020-02-05 19:10 | NUR ---
RN OPENING NOTE RECEIVED PATIENT IN BED ALERT ORIENTED X3 VERBALLY RESPONSIVE ON NON REBREATHER MASK 15L 02:100% IV SITE IS ON RIGHT UPPER ARM MIDLINE INTACT PATENT AND RIGHT SHOULDER HEMODIALYSIS PERM CATH ON RIGHT UPPER CHEST INFECTED,IV HYDRATION RUNNING NS 100CC/HR,SAFETY MEASURE IMPLANTED BED IN LOW POSITION AND LOCKED,CONTINUE TO MONITOR
--- NOTE | 2020-02-05 19:44 | NUR ---
PT ASLEEP IN BED W HOB ELEVATED. A/OX4. SOB REPORTED BUT SAO2 100% ON NON REBREATHER 15L/MIN ORDERED. PIV R SHOULDER AND MIRIAM MIDLINE FLUSHED. INTACT. DRESSING INTACT. ALL ORDERS IMPLEMENTED. PT TOLERATING ORDERS WELL. NPO MAINTAINED ORDERED. PT DENIES PAIN AT THE MOMENT. ENDORSED TO PM RN. ALL HOSPITAL SAFETY PRECAUTIONS IMPLEMENTED. RAILS X2 UP, BED LOW AND LOCKED, CALL LIGHT INREACH, HOB ELEVATED 30 DEGREES. ASSISTED W TURNING Q2H.
--- NOTE | 2020-02-05 21:30 | NUR ---
RN NOTE BS IS 582 START INSULIN DRIP MD ORDERED CONTINUE TO MONITOR
[2020-02-05] MEDS: INSULIN REGULAR, HUMAN 100 UNIT in IV NS 0.9% 99 ML IV PRN ×2 (21:39)
[2020-02-05 22:48] LABS: CALCIUM, SERUM 7.3 mg/dL (8.5-10.1); POTASSIUM 4.4 mmol/L (3.5-5.1)
[2020-02-06] VITALS (44 sets, daily range): BP systolic 104–171; BP diastolic 43–106
[2020-02-06 01:00] LABS: CALCIUM, SERUM 7.3 mg/dL (8.5-10.1); POTASSIUM 3.7 mmol/L (3.5-5.1)
[2020-02-06] MEDS: IV NS 0.9% 1,000 ML IV PRN (03:47)
[2020-02-06] MEDS: PIPERACILLIN /TAZOBACTAM 2.25 G in IV D5W 50 ML IV SCH ×3 (04:04→21:58)
[2020-02-06 04:27] LABS: BASOPHILS % (AUTO) 0.1 % (0.0-2.0); EOSINOPHILS % (AUTO) 0.4 % (0.0-6.0); HEMATOCRIT 29 % (39-51); HEMOGLOBIN 9.6 g/dL (13.5-17.5); LYMPHOCYTES # (AUTO) 0.5 /CMM (0.8-4.8); LYMPHOCYTES % (AUTO) 1.6 % (20.0-44.0); MEAN CORPUSCULAR HGB CONC 33 g/dl (31.0-36.0); MEAN CORPUSCULAR VOLUME 89 fL (80-96); MONOCYTES # (AUTO) 0.9 /CMM (0.1-1.30); MONOCYTES % (AUTO) 2.7 % (2.0-12.0); NEUTROPHILS % (AUTO) 95.2 % (43.0-81.0); PLATELET COUNT (AUTO) 214 /CMM (150-450); RED BLOOD CELL COUNT(AUTO) 3.32 MIL/uL (4.5-6.0)
[2020-02-06 04:34] LABS: WHITE BLOOD COUNT (AUTO) 33.6 K/uL (4.3-11.0)
[2020-02-06 04:37] LABS: ALANINE AMINOTRANSFERASE 12 U/L (12-78); ALBUMIN 1.5 g/dL (3.4-5.0); ALKALINE PHOSPHATASE 182 U/L (46-116); ASPARTATE AMINOTRANSFERASE 12 U/L (15-37); BILIRUBIN,TOTAL 1.6 mg/dL (0.2-1.0); CALCIUM, SERUM 7.7 mg/dL (8.5-10.1); CARBON DIOXIDE 24 mmol/L (21-32); CHLORIDE 96 mmol/L (98-107); CREATININE 2.9 mg/dL (0.6-1.3); GLUCOSE 344 mg/dL (74-106); MAGNESIUM 3.5 mg/dL (1.8-2.4); PHOSPHORUS 5.1 mg/dL (2.5-4.9); POTASSIUM 3.8 mmol/L (3.5-5.1); SODIUM SERUM 130 mmol/L (136-145); TOTAL PROTEIN, SERUM 7.2 g/dL (6.4-8.2)
[2020-02-06 04:40] LABS: UREA NITROGEN, BLOOD 87 mg/dL (7-18)
[2020-02-06 04:51] LABS: CHOLESTEROL 81 mg/dL (<200); LDL 35 mg/dL (0-99); THYROID STIMULATING HORMONE 0.407 uIU/mL (0.358-3.74); TRIGLYCERIDES 189 mg/dL (30-150)
[2020-02-06 05:02] LABS: HDL CHOLESTEROL < 10 mg/dL (40-60)
[2020-02-06 05:06] LABS: BAND % (MANUAL) 15 % (0.0-5.0); LYMPHOCYTES % (MANUAL) 2 % (16-48); MONOCYTES % (MANUAL) 3 % (0-11.0); NEUTROPHILS % (MANUAL) 79 (42-76)
[2020-02-06 05:52] LABS: ABG OXYGEN SATURATION 98.1 % (92.0-98.5); ABG PH 7.444 (7.350-7.450); ABG PO2 98.3 mmHg (75.0-100.0); AaDO2 587.7 mmHg; COHb 0.2 % (0.5-1.5); MetHb 0.3 % (0.0-1.5); O2Hb 97.6 % (94.0-97.0); SITE, ABG Right Brachial; VENT MODE, BG NRB
--- NOTE | 2020-02-06 05:58 | NUR ---
RN NOTE RECEIVED ABG RESULTS HCO3 IS 18.1,AND METABOLIC ACIDOSIS CALLED BHARGAVI NUR WITH NO NEW ORDER AT THIS TIME, CONTINUE TO MONITOR
--- NOTE | 2020-02-06 07:36 | NUR ---
RN CLOSING NOTE PATIENT REMAINS ON ALERT ORIENTED X3 ON 15L NON REBREATHER MASK O2:100% ON HEMODIALYSIS, ON INSULIN DRIP NO DISCOMFORT NOTED DURING SHIFT ENDORSE NEXT COMING SHIFT FOR CONTINUATION OF CARE
[2020-02-06] MEDS: INSULIN REGULAR, HUMAN 100 UNIT in IV NS 0.9% 99 ML IV PRN ×4 (08:06→10:56)
[2020-02-06] MEDS ORDERED: VANCOMYCIN POST DIALYSIS 500MG IV PRN ×2 (09:00)
[2020-02-06] MEDS: DEXAMETHASONE SOD PHOSPHATE 10 MG/ML VIAL IV SCH (09:15)
[2020-02-06] MEDS: PANTOPRAZOLE 40 MG TABLET.DR PO SCH (09:15)
[2020-02-06] MEDS: HEPARIN SODIUM, PORCINE 5000 UNITS/1 ML VIAL SQ SCH ×2 (09:27→17:38)
[2020-02-06] MEDS ORDERED: VANCOMYCIN 500 MG in IV D5W 100ml IV ONE (14:00)
[2020-02-06 21:26] LABS: CALCIUM, SERUM 7.4 mg/dL (8.5-10.1); CREATININE 1.9 mg/dL (0.6-1.3); POTASSIUM 3.7 mmol/L (3.5-5.1)
[2020-02-06] MEDS: BLOOD SUGAR DIAGNOSTIC 1 EACH STRIP IN SCH ×2 (21:39→22:04)
[2020-02-07] VITALS (24 sets, daily range): BP systolic 62–150; BP diastolic 55–79
[2020-02-07] MEDS: BLOOD SUGAR DIAGNOSTIC 1 EACH STRIP IN SCH ×13 (00:10→21:00)
[2020-02-07] MEDS: PIPERACILLIN /TAZOBACTAM 2.25 G in IV D5W 50 ML IV SCH ×3 (05:20→22:18)
[2020-02-07 05:23] LABS: EOSINOPHILS % (AUTO) 0.1 % (0.0-6.0); HEMATOCRIT 27 % (39-51); HEMOGLOBIN 8.9 g/dL (13.5-17.5); LYMPHOCYTES # (AUTO) 0.8 /CMM (0.8-4.8); LYMPHOCYTES % (AUTO) 2.5 % (20.0-44.0); MEAN CORPUSCULAR HGB CONC 33 g/dl (31.0-36.0); MEAN CORPUSCULAR VOLUME 88 fL (80-96); MONOCYTES # (AUTO) 1.5 /CMM (0.1-1.30); MONOCYTES % (AUTO) 4.9 % (2.0-12.0); NEUTROPHILS # (AUTO) 28.3 /CMM (1.8-8.9); NEUTROPHILS % (AUTO) 92.5 % (43.0-81.0); PLATELET COUNT (AUTO) 205 /CMM (150-450); RED BLOOD CELL COUNT(AUTO) 3.07 MIL/uL (4.5-6.0)
[2020-02-07 05:24] LABS: WHITE BLOOD COUNT (AUTO) 30.6 K/uL (4.3-11.0)
[2020-02-07 05:29] LABS: CALCIUM, SERUM 7.5 mg/dL (8.5-10.1); CREATININE 2.2 mg/dL (0.6-1.3); PHOSPHORUS 4.1 mg/dL (2.5-4.9); POTASSIUM 3.8 mmol/L (3.5-5.1)
[2020-02-07] MEDS: IV NS 0.9% 1,000 ML IV PRN ×2 (05:32→17:41)
[2020-02-07 05:43] LABS: BAND % (MANUAL) 6 % (0.0-5.0); LYMPHOCYTES % (MANUAL) 3 % (16-48); MONOCYTES % (MANUAL) 10 % (0-11.0); NEUTROPHILS % (MANUAL) 81 (42-76)
--- NOTE | 2020-02-07 07:30 | NUR ---
PATIENT IN BED, NO S/S OF DISTRESS, A/O X3, INSULIN DRIP RUNNING AT 2.7U/HR, NPO, VOIDS IN URINAL, SINUS RHYTHM, GENERALIZED EDEMA, SAFETY MEASURES IN PLACE, NON REBREATHER 15L, BED IN LOWEST LOCKED POSITION, CALL LIGHT WITHIN REACH.
--- NOTE | 2020-02-07 08:20 | NUR ---
REPAIR MECHANIC PELEG ORDERED TO STOP INSULIN DRIP, AND START ON MODERATE SCALE Q4H. AND TO START ON FEEDING @1800 ADA RENAL DIET TOLERATED.
[2020-02-07] MEDS: DEXAMETHASONE SOD PHOSPHATE 10 MG/ML VIAL IV SCH (08:37)
[2020-02-07] MEDS: PANTOPRAZOLE 40 MG TABLET.DR PO SCH (08:38)
[2020-02-07] MEDS: HEPARIN SODIUM, PORCINE 5000 UNITS/1 ML VIAL SQ SCH ×2 (08:39→17:40)
[2020-02-07] MEDS ORDERED: DEXTROSE 50%-WATER 50 ML DISP.SYRIN IV PRN (11:30)
--- NOTE | 2020-02-07 12:30 | NUR ---
PRINCIPAL IOS DEVELOPER PATIENT RESTING IN BED, NO DISTRESS OR MAJOR CHANGES, CLEANED WITH TELECOMMUNICATIONS PROFESSIONAL.
[2020-02-07] MEDS: INSULIN REGULAR, HUMAN 100 UNIT/ML 3 ML VIAL SQ PRN ×3 (13:05→22:46)
--- NOTE | 2020-02-07 15:45 | NUR ---
BUTCHER OR SMALLGOODS MAKER RT DECREASED O2 DELIVERY TO 8L VIA SIMPLE MASK, PATIENT TOLERATING WELL, O2 96%.
--- NOTE | 2020-02-07 20:00 | NUR ---
RN NOTES PATIENT IN BED RESTING. A/O X3. NO SOB OR ANY RESPIRATORY DISTRESS. ON SIMPLE MASK 6 L, O2 SAT 98%. DENIES ANY PAIN OR DISCOMFORT. TELE MONITOR ON, SR. CALL LIGHT WITHIN REACH. WILL CONTINUE TO MONITOR.
--- NOTE | 2020-02-07 20:24 | NUR ---
TUFT MACHINE OPERATOR PATIENT IN BED, NO S/S OF DISTRESS, A/O X3, ABLE TO DRINK WATER, INCONTINENT, SINUS RHYTHM, GENERALIZED EDEMA, SAFETY MEASURES IN PLACE, NON REBREATHER 8L O2 SAT>95%, TELE MONITOR IN PLACE SINUS RHYTHM, BED IN LOWEST LOCKED POSITION, CALL LIGHT WITHIN REACH.
[2020-02-07] MEDS: ACETAMINOPHEN 325 MG TABLET PO PRN (23:57)
[2020-02-08] VITALS (22 sets, daily range): BP systolic 93–136; BP diastolic 41–94
--- NOTE | 2020-02-08 00:30 | NUR ---
PATIENT REMOVED R FEMORAL PIGTAILS. LIUDMILA NOTIFIED, ORDERED PLACEMENT FOR MIDLINE. Addendum: 02/09/20 at 0144 by JARRELL CHEW RN WRONG TIME
[2020-02-08] MEDS: BLOOD SUGAR DIAGNOSTIC 1 EACH STRIP IN SCH ×6 (00:41→22:04)
[2020-02-08] MEDS: INSULIN REGULAR, HUMAN 100 UNIT/ML 3 ML VIAL SQ PRN ×6 (00:42→22:01)
[2020-02-08] MEDS: PIPERACILLIN /TAZOBACTAM 2.25 G in IV D5W 50 ML IV SCH ×3 (04:24→21:48)
[2020-02-08 04:36] LABS: BASOPHILS % (AUTO) 0.1 % (0.0-2.0); HEMATOCRIT 26 % (39-51); HEMOGLOBIN 8.6 g/dL (13.5-17.5); LYMPHOCYTES # (AUTO) 0.9 /CMM (0.8-4.8); LYMPHOCYTES % (AUTO) 3.1 % (20.0-44.0); MEAN CORPUSCULAR HGB CONC 33 g/dl (31.0-36.0); MEAN CORPUSCULAR VOLUME 88 fL (80-96); MONOCYTES # (AUTO) 1.3 /CMM (0.1-1.30); MONOCYTES % (AUTO) 4.3 % (2.0-12.0); NEUTROPHILS # (AUTO) 28.1 /CMM (1.8-8.9); NEUTROPHILS % (AUTO) 92.5 % (43.0-81.0); PLATELET COUNT (AUTO) 205 /CMM (150-450)
[2020-02-08 04:43] LABS: WHITE BLOOD COUNT (AUTO) 30.4 K/uL (4.3-11.0)
[2020-02-08 04:46] LABS: CALCIUM, SERUM 7.3 mg/dL (8.5-10.1); CREATININE 2.5 mg/dL (0.6-1.3); MAGNESIUM 2.9 mg/dL (1.8-2.4); PHOSPHORUS 5.9 mg/dL (2.5-4.9); POTASSIUM 3.8 mmol/L (3.5-5.1)
[2020-02-08 05:03] LABS: BAND % (MANUAL) 5 % (0.0-5.0); LYMPHOCYTES % (MANUAL) 3 % (16-48); MONOCYTES % (MANUAL) 7 % (0-11.0); NEUTROPHILS % (MANUAL) 85 (42-76)
[2020-02-08] MEDS: IV NS 0.9% 1,000 ML IV PRN ×2 (05:19→16:42)
--- NOTE | 2020-02-08 08:00 | NUR ---
RN NOTES RECEIVED PATIENT IN THE BED ON NON-REBREATHER MASK 8L O22-100. NO S/S OF ACUTE RESPIRATORY DISTRESS, A/O X3, KEEP REMOVING, INCONTINENT USING URINAL, BS-331MG/DL, SINUS RHYTHM, PERMACATH ON RIGHT UPPER CHEST INTACT, GENERALIZED EDEMA, SAFETY MEASURES IN PLACE, RESTRAIN ON, RECHECKED CIRCULATION. TELE MONITOR IN PLACE SINUS RHYTHM, BED IN LOWEST LOCKED POSITION, CALL LIGHT WITHIN REACH. ASSIST EATING, TOLEARTED WELL, WILL MONITORING.
[2020-02-08] MEDS: DEXAMETHASONE SOD PHOSPHATE 10 MG/ML VIAL IV SCH (09:03)
[2020-02-08] MEDS: PANTOPRAZOLE 40 MG TABLET.DR PO SCH (09:03)
[2020-02-08] MEDS: ACETAMINOPHEN 325 MG TABLET PO PRN ×2 (09:05→16:47)
--- NOTE | 2020-02-08 09:05 | NUR ---
rn notes administered Tylenol 650 mg po prn for headache.
--- NOTE | 2020-02-08 10:52 | NUR ---
RN NOTES STARTED GETTING HEMODIALYSIS AT THIS TIME, PLAN IS REMOVE FLUID. V/S STABLE.
--- NOTE | 2020-02-08 10:54 | NUR ---
RN NOTES GET CALL FROM LAB PATIENT GRAM POSITIVE FOR BLOOD CULTURE.
[2020-02-08] MEDS: HEPARIN SODIUM, PORCINE 5000 UNITS/1 ML VIAL SQ SCH ×2 (11:22→16:45)
--- NOTE | 2020-02-08 12:00 | NUR ---
rn notes finished HD at this time, patient stable, output was 1l.
--- NOTE | 2020-02-08 16:49 | NUR ---
RN NOTES ADMINISTERED TYLENOL 650 MG PO PRN FOR BILATERAL LOWER EXTREMITIES PAIN 5/10 PER PAIN SCALE. PATIENT WILL TRANSFER TO THE TELE UNIT, ON O2-8L NC, , BS-363 MG/DL COVERAGE GIVEN
--- NOTE | 2020-02-08 18:30 | NUR ---
RN NOTES PATIENT ON O2-8LNC, BS-363MG/DL COVERAGE GIVEN, PM CARE DONE, AND DUE MEDICATION. PATIENT RESTING IN THE BED QUIET AT THIS TIME, MEDICATION WERE ADMINISTERED FOR HEADACHE EFFECTIVE. PATIENT TURN AND REPOSITION SELF IN THE BED. ENDORSED ONCOMING NURSE FOLLOW PLAN OF CARE.
--- NOTE | 2020-02-08 19:30 | NUR ---
RN NOTES RECEIVED PATIENT IN BED AOX3 IN STABLE CONDITION. ON O2 8L VIA NC SATING 99%. BREATHING NORMAL NO SOB NOTED NO S/S OF ACUTE DISTRESS NOTED. ALL IV SITES INTACT FLUSHED WELL. TELE MONITOR READING SR IN 70'S. PATIENT INCONTINENT WITH B&B. ALL SAFETY MEASURES IN PLACE, CALL LIGHT WITHIN REACH. WILL CONT TO MONITOR FOR MESSI.
--- NOTE | 2020-02-08 20:45 | NUR ---
RN NOTES GAVE REPORT TO JARRELL PALOMO FROM MED SURG 3, ALL INFORMATION DISCUSSED.
--- NOTE | 2020-02-08 21:00 | NUR ---
RN NOTES PATIENT TRANSFERRED TO MED SURG 3 ROOM 310 BED 2 IN STABLE CONDITION WITH ACLS PROTOCOL. RN AT BED SIDE.
--- NOTE | 2020-02-08 21:20 | NUR ---
RN NOTES PATIENT RECEIVED FROM ICU VIA GURNEY. ON 8L OF O2 WITH BREATHING EVEN AND UNLABORED, NO SOB NOTED. NO SIGNS OF ACUTE DISTRESS. NO COMPLAINTS OF PAIN OR DISCOMFORT AT THE MOMENT. PATIENT HAS L SHOULDER IV, R PERMCATH UPPER CHEST AND R FEMORAL PIG TAILS THAT IS RUNNING NS @ 100 ML/HR. PATIENT A/O X 2-3. BILATERAL SOFT WRIST RESTRAINTS IN PLACE WITH PULSE PRESENT, NO REDNESS. SAFETY PRECAUTIONS IN PLACE WITH BED IN LOWEST POSITION, CALL LIGHT WITHIN REACH, BREAKS ON, SIDE RAILS UP.
--- NOTE | 2020-02-08 22:20 | NUR ---
FSBS 448, RECHECKED TWICE. 15 UNITS OF REGULAR INSULIN ADMINISTERED. MIXING PLANT OPERATOR LIUDMILA NOTIFIED. NO NEW ORDERS MADE.
[2020-02-09] VITALS: BP 133/61
--- NOTE | 2020-02-09 00:30 | NUR ---
PATIENT REMOVED R FEMORAL PIGTAILS. LIUDMILA NOTIFIED, ORDERED PLACEMENT FOR MIDLINE.
[2020-02-09] MEDS ORDERED: DEXTROSE 50%-WATER 50 ML DISP.SYRIN IV PRN (01:00)
--- NOTE | 2020-02-09 01:20 | NUR ---
PATIENT FSBS 466, NOTIFIED LIUDMILA JACINTO AND CHANGED THE SLIDING SCALE TO AGGRESSIVE. 20 UNITS ADMINISTERED.
[2020-02-09] MEDS: BLOOD SUGAR DIAGNOSTIC 1 EACH STRIP IN SCH ×6 (01:24→21:18)
[2020-02-09] MEDS: INSULIN REGULAR, HUMAN 100 UNIT/ML 3 ML VIAL SQ PRN ×6 (01:25→21:16)
[2020-02-09] MEDS: ACETAMINOPHEN 325 MG TABLET PO PRN ×3 (01:32→22:32)
[2020-02-09 04:00] VITALS: BP 112/51
[2020-02-09] MEDS ORDERED: HYDROMORPHONE 1 MG/1 ML DISP.SYRIN IV ONE ×2 (04:00→23:00)
--- NOTE | 2020-02-09 04:00 | NUR ---
PATIENT COMPLAINING OF PAIN, GENERALIZED, ESPECIALLY NECK AND FEET. PAIN OF 11/16. NOTIFIED SUPERVISOR SPECIALTY PLANT LIUDMILA. ORDERED DILAUDID ONE TIME. ORDERS CARRIED OUT.
[2020-02-09] MEDS: PIPERACILLIN /TAZOBACTAM 2.25 G in IV D5W 50 ML IV SCH ×3 (04:30→21:18)
[2020-02-09 07:02] LABS: BASOPHILS % (AUTO) 0.1 % (0.0-2.0); EOSINOPHILS % (AUTO) 0.1 % (0.0-6.0); HEMATOCRIT 23 % (39-51); HEMOGLOBIN 7.4 g/dL (13.5-17.5); LYMPHOCYTES # (AUTO) 1.2 /CMM (0.8-4.8); LYMPHOCYTES % (AUTO) 4.1 % (20.0-44.0); MEAN CORPUSCULAR HGB CONC 33 g/dl (31.0-36.0); MEAN CORPUSCULAR VOLUME 88 fL (80-96); MONOCYTES # (AUTO) 1.1 /CMM (0.1-1.30); NEUTROPHILS # (AUTO) 26.1 /CMM (1.8-8.9); NEUTROPHILS % (AUTO) 91.7 % (43.0-81.0); PLATELET COUNT (AUTO) 230 /CMM (150-450); RED BLOOD CELL COUNT(AUTO) 2.56 MIL/uL (4.5-6.0); WHITE BLOOD COUNT (AUTO) 28.4 K/uL (4.3-11.0)
--- NOTE | 2020-02-09 07:12 | NUR ---
RN CLOSING NOTES PATIENT RESTING IN BED A/O X 3. ON 4L OF O2 WITH BREATHING EVEN AND UNLABORED, NO SOB NOTED. NO SIGNS OF ACUTE DISTRESS. NO COMPLAINTS OF PAIN OR DISCOMFORT AT THE MOMENT. R UPPER CHEST WALL NOTED AND INTACT. L UPPER ARM #22 RUNNING NS @ 125 ML/HR. SAFETY PRECAUTIONS IN PLACE WITH BED IN LOWEST POSITION, CALL LIGHT WITHIN REACH, BREAKS ON, SIDE RAILS UP.
[2020-02-09 07:31] LABS: CALCIUM, SERUM 6.9 mg/dL (8.5-10.1); CREATININE 2.5 mg/dL (0.6-1.3); MAGNESIUM 2.3 mg/dL (1.8-2.4); PHOSPHORUS 4.6 mg/dL (2.5-4.9); POTASSIUM 3.6 mmol/L (3.5-5.1)
[2020-02-09] MEDS: PANTOPRAZOLE 40 MG TABLET.DR PO SCH (07:48)
--- NOTE | 2020-02-09 07:49 | NUR ---
RN OPENING NOTES RECEIVED PATIENT ON ALERT AWAKE ALERT AN ORIENTED X3. NO COMPLAINED AT THIS TIME. PATIENT IN NO APPARENT RESPIRATORY DISTRESS NOTED. WILL CONTINUE TO MONITOR. Addendum: 02/09/20 at 0756 by NATALIIA BELTRAN RN ERROR
--- NOTE | 2020-02-09 07:56 | NUR ---
RN OPENING NOTES RECEIVED PATIENT ON BED, AWAKE ALERT AND ORIENTED X 3. NO COMPLAINED OF PAIN AT THIS TIME. PATIENT IN NO APPARENT RESPIRATORY DISTRESS NOTED. WILL CONTINUE TO MONITOR.
[2020-02-09 08:00] VITALS: BP 141/68
[2020-02-09 08:43] LABS: BAND % (MANUAL) 7 % (0.0-5.0); LYMPHOCYTES % (MANUAL) 1 % (16-48); METAMYELOCYTES % 1 % (0-0); MONOCYTES % (MANUAL) 4 % (0-11.0); MYELOCYTES % 4 % (0-0); NEUTROPHILS % (MANUAL) 83 (42-76)
[2020-02-09] MEDS: HEPARIN SODIUM, PORCINE 5000 UNITS/1 ML VIAL SQ SCH ×2 (09:00→17:00)
[2020-02-09] MEDS: DEXAMETHASONE SOD PHOSPHATE 10 MG/ML VIAL IV SCH (09:36)
--- NOTE | 2020-02-09 10:29 | NUR ---
RN NOTES HGB 7.4 HCT 23 HEPARIN 5000 UNITS WAS WITHHELD.
[2020-02-09 12:00] VITALS: BP 124/62
[2020-02-09] MEDS: IV NS 0.9% 1,000 ML IV PRN (12:46)
[2020-02-09] MEDS ORDERED: VANCOMYCIN 1 GM in IV D5W 250 ML IV ONE (15:00)
[2020-02-09 16:00] VITALS: BP 135/61
--- NOTE | 2020-02-09 19:32 | NUR ---
TELE/RN CLOSING NOTES PATIENT IS ON BED. ALERT AND ORIENTED X3. PATIENT IN NO APPARENT RESPIRATORY DISTRESS NOTED. NO COMPLAINED OF PAIN AT THIS TIME. TELE MONITOR READING SINUS RHYTHM 85 BPM. IV ACCESS AT RIGHT UPPER ARM # 22 G WITH IV FLUID OF NS 1L AT 100 ML/HR ON AND INFUSING WELL. SEEN AND EXAMINED BY MD WITH ORDERS MADE AND CARRIED OUT. ALL DUE MEDICATIONS WAS GIVEN. SAFETY PRECAUTIONS WAS IN PLACED. BED IN LOWEST POSITION AND LOCKED X2. CALL LIGHT WITHIN REACH. WILL ENDORSED TO HAND ETCHER HELPER FOR MESSI.
[2020-02-09 20:00] VITALS: BP 143/80
--- NOTE | 2020-02-09 20:00 | NUR ---
NURSES NOTES: RECEIVED PATIENT IN BED, AWAKE, SCREAMING AT NURSE ASKING FOR HIS COFFEE. IV HEPLOCK ON LEFT UPPER ARM G #22. NO COMPLAINS OF PAIN OR DISCOMFORT THIS TIME EXCEPT FOR HIM WANTING TO HAVE COFFEE.WILL ADMINISTER ORDERED MEDICATIONS. WILL CHECK PATIENT'S BLOOD GLUCOSE LEVELS. SAFETY AND FALL PRECAUTIONS OBSERVED. BED ALARM KEPT ON.WILL CONTINUE TO MONITOR PATIENT.
[2020-02-09] MEDS ORDERED: INSULIN GLARGINE, 100 UNIT/ML CARTRIDGE SQ ONE (23:37)
[2020-02-09] MEDS: INSULIN GLARGINE, 100 UNIT/ML CARTRIDGE SQ SCH (23:48)
[2020-02-10] VITALS (13 sets, daily range): BP systolic 136–164; BP diastolic 56–75
[2020-02-10] MEDS: BLOOD SUGAR DIAGNOSTIC 1 EACH STRIP IN SCH ×6 (01:26→21:56)
[2020-02-10] MEDS: INSULIN REGULAR, HUMAN 100 UNIT/ML 3 ML VIAL SQ PRN ×6 (01:28→21:59)
[2020-02-10] MEDS: PIPERACILLIN /TAZOBACTAM 2.25 G in IV D5W 50 ML IV SCH ×3 (04:57→20:42)
--- NOTE | 2020-02-10 07:03 | NUR ---
CLOSING NOTES: PATIENT IN BED, ASLEEP, IV HEPLOCK ON LEFT UPPER ARM IN PLACE. RIGHT UPPER CHEST WALL PERMACATH IN PLACE. NO COMPLAINS OF PAIN THIS TIME, BLOOD GLUCOSE LEVELS MONITORED. SAFETY AND FALL PRECAUTIONS OBSERVED. BED ALARM KEPT ON. ATTENDED TO ALL PATIENTS NEEDS. WILL CONTINUE TO MONITOR PATIENT. WILL ENDORSE PATIENT TO DAY SHIFT NURSE.
[2020-02-10 07:06] LABS: EOSINOPHILS % (AUTO) 0.1 % (0.0-6.0); HEMATOCRIT 21 % (39-51); LYMPHOCYTES # (AUTO) 1.1 /CMM (0.8-4.8); LYMPHOCYTES % (AUTO) 4.5 % (20.0-44.0); MEAN CORPUSCULAR HGB CONC 33 g/dl (31.0-36.0); MEAN CORPUSCULAR VOLUME 88 fL (80-96); MONOCYTES # (AUTO) 1.3 /CMM (0.1-1.30); MONOCYTES % (AUTO) 5.2 % (2.0-12.0); NEUTROPHILS # (AUTO) 22.9 /CMM (1.8-8.9); NEUTROPHILS % (AUTO) 90.2 % (43.0-81.0); PLATELET COUNT (AUTO) 253 /CMM (150-450); RED BLOOD CELL COUNT(AUTO) 2.38 MIL/uL (4.5-6.0); WHITE BLOOD COUNT (AUTO) 25.4 K/uL (4.3-11.0)
[2020-02-10 07:25] LABS: CALCIUM, SERUM 7.3 mg/dL (8.5-10.1); CREATININE 2.7 mg/dL (0.6-1.3); MAGNESIUM 2.2 mg/dL (1.8-2.4); PHOSPHORUS 4.4 mg/dL (2.5-4.9); POTASSIUM 3.6 mmol/L (3.5-5.1)
--- NOTE | 2020-02-10 07:30 | NUR ---
RN Opening note Received patient in bed, AO x 4 able to responds all stimuli, Pt does no appears pain or distress. Skin is warm to touch keep clean/dry intact IV site, respiratory even and unlabored with oxygen at 4LPM. Kept locked bed with elevated HOB for aspiration precaution and ensure airway and lowest bed foe safety. Call light within reach, will continue to monitor.
--- NOTE | 2020-02-10 08:00 | NUR ---
Patient noted hgb 6.9, MD made aware and no new order at this time.
[2020-02-10 08:03] LABS: HEMOGLOBIN 6.9 g/dL (13.5-17.5)
[2020-02-10] MEDS: DEXAMETHASONE SOD PHOSPHATE 10 MG/ML VIAL IV SCH (08:53)
[2020-02-10] MEDS: PANTOPRAZOLE 40 MG TABLET.DR PO SCH (08:53)
[2020-02-10] MEDS: ACETAMINOPHEN 325 MG TABLET PO PRN (08:54)
[2020-02-10] MEDS: HEPARIN SODIUM, PORCINE 5000 UNITS/1 ML VIAL SQ SCH ×2 (09:00→16:32)
--- NOTE | 2020-02-10 09:04 | NUR ---
Hgb level 6.9 this morning, will hold Heparin.
[2020-02-10 10:01] LABS: BAND % (MANUAL) 3 % (0.0-5.0); LYMPHOCYTES % (MANUAL) 2 % (16-48); METAMYELOCYTES % 2 % (0-0); MONOCYTES % (MANUAL) 5 % (0-11.0); NEUTROPHILS % (MANUAL) 88 (42-76)
--- NOTE | 2020-02-10 12:00 | NUR ---
Patient singed on consent for blood transfusion.
--- NOTE | 2020-02-10 16:26 | NUR ---
Patient finished blood trandfution, no s/s of reaction observed, no fever or skin rash observed.
--- NOTE | 2020-02-10 18:00 | NUR ---
RN closing Patient in bed resting, does no appears pain or discomfort. Skin is warm to touch keep clean/dry, intact IV site with SL. Respiratory even and unlabored with oxygen at 4LPM O2sat 95%. Kept elevated HOB for ensure air way and aspiration precaution and lowest bed for safety. Call light within reach, will endorse shift lab technician.
--- NOTE | 2020-02-10 19:30 | NUR ---
multicut line operator opening notes Received Pt from morning nurse. Pt is alert and orientedX3. Pt is sitting in bed comfortably watching TV. Respiration on 4 L NC. No SOB. No S/S of distress noted. Tele monitor showed SR. IV site at L upperarm # 22 is clean, intact and flushes well. R chest permacath is clean, intact and patent. Safety precautions is maintained. Bed at low position, brakes locked, side rails upX2, urinal at the bed side. Will continue to monitor.
--- NOTE | 2020-02-10 20:57 | NUR ---
environmental services assistant notes Pt's blood sugar is 437. Pt is alert and orientedX3. Pt stated Pt just had snacks after dinner time. Will recheck again in 30 minutes.
--- NOTE | 2020-02-10 21:53 | NUR ---
public services librarian notes Pt's blood sugar rechecked is 422. Informed and notified OPHELIA Michaud regarding Pt blood sugar (first check was 437 and rechecked again was 422). Also informed BUTTER PRINTER that Pt informed the nurse that Pt's had dinner and snacks at 1999. Pt is alert and orientedX3. No new order received from BUTTER PRINTER. Will continue to monitor.
[2020-02-10] MEDS: INSULIN GLARGINE, 100 UNIT/ML CARTRIDGE SQ SCH (22:01)
[2020-02-11 00:50] VITALS: BP 149/69
[2020-02-11] MEDS: ACETAMINOPHEN 325 MG TABLET PO PRN (01:23)
--- NOTE | 2020-02-11 01:30 | NUR ---
programming internship notes Pt is screaming and requesting massage to primary nurse. Reality orientation provided. Pt is alert and orientedX3. Pt started screaming loudly and yelling to primary nurse. Pt stated "Massage my back so I can sleep." Will continue to monitor.
[2020-02-11] MEDS: IV NS 0.9% 1,000 ML IV PRN (01:52)
--- NOTE | 2020-02-11 02:00 | NUR ---
press secretary notes Pt's blood sugar at 0100 was 441 and rechecked again second time was 453. Informed and notified BELT AND LINK ASSEMBLY SUPERVISOR regarding Pt's blood sugar. Also informed and notified BELT AND LINK ASSEMBLY SUPERVISOR that at 2200- given lantus 14 units and regular insulin 20 units. No new orders received from BELT AND LINK ASSEMBLY SUPERVISOR. Will continue to monitor.
[2020-02-11] MEDS: BLOOD SUGAR DIAGNOSTIC 1 EACH STRIP IN SCH ×6 (02:11→21:15)
[2020-02-11] MEDS: INSULIN REGULAR, HUMAN 100 UNIT/ML 3 ML VIAL SQ PRN ×6 (02:14→21:19)
[2020-02-11] MEDS: PIPERACILLIN /TAZOBACTAM 2.25 G in IV D5W 50 ML IV SCH ×3 (04:54→21:18)
[2020-02-11 05:06] VITALS: BP 149/80
--- NOTE | 2020-02-11 06:40 | NUR ---
body designer closing notes Pt is alert and orientedX3. Pt is sitting in a chair comfortably watching TV. Respiration on 4 L NC. No SOB. No S/S of distress noted. Tele monitor showed SR hr at 96 bpm. IV site at L upperarm # 22 is clean, intact and flushes well. R chest permacath is clean, intact and patent. Vs is stable. Afebrile. Routine meds were given as ordered. Kept Pt clean, dry and comfortable. Safety precautions is maintained. Bed at low position, brakes locked, side rails upX2, urinal at the bed side. Will endorse to morning nurse for MESSI.
[2020-02-11 08:00] VITALS: BP 168/82
--- NOTE | 2020-02-11 08:17 | NUR ---
TELE OPEN NOTES PATIENT IS A/O X 3 ON 4L OF NASAL CANNULA WITH NO SIGNS OF DISTRESS SPO2 94%. CURRENTLY SITTING ON CHAIR AT THE BED SIDE. IV L FA#22 SL AND R PERMACATH. TELE MONITOR SR 96. SAFETY MEASURES ARE APPLIED BED IS IN THE LOWEST POSITION SIDE RAILS UP X 2. CALL LIGHT WITHIN REACH WILL CONTINUE TO MONITOR.
[2020-02-11] MEDS: PANTOPRAZOLE 40 MG TABLET.DR PO SCH (08:40)
[2020-02-11] MEDS: DEXAMETHASONE SOD PHOSPHATE 10 MG/ML VIAL IV SCH (08:41)
[2020-02-11 09:54] LABS: BASOPHILS % (AUTO) 0.1 % (0.0-2.0); HEMATOCRIT 26 % (39-51); HEMOGLOBIN 8.6 g/dL (13.5-17.5); LYMPHOCYTES # (AUTO) 0.9 /CMM (0.8-4.8); LYMPHOCYTES % (AUTO) 3.4 % (20.0-44.0); MEAN CORPUSCULAR HGB CONC 33 g/dl (31.0-36.0); MEAN CORPUSCULAR VOLUME 90 fL (80-96); MONOCYTES # (AUTO) 1.4 /CMM (0.1-1.30); MONOCYTES % (AUTO) 5.1 % (2.0-12.0); NEUTROPHILS # (AUTO) 25.8 /CMM (1.8-8.9); NEUTROPHILS % (AUTO) 91.4 % (43.0-81.0); PLATELET COUNT (AUTO) 315 /CMM (150-450); RED BLOOD CELL COUNT(AUTO) 2.93 MIL/uL (4.5-6.0); WHITE BLOOD COUNT (AUTO) 28.2 K/uL (4.3-11.0)
[2020-02-11 10:09] LABS: CALCIUM, SERUM 7.6 mg/dL (8.5-10.1); CREATININE 2.3 mg/dL (0.6-1.3); MAGNESIUM 2.1 mg/dL (1.8-2.4); PHOSPHORUS 3.2 mg/dL (2.5-4.9); POTASSIUM 3.5 mmol/L (3.5-5.1)
[2020-02-11 10:24] LABS: BAND % (MANUAL) 7 % (0.0-5.0); LYMPHOCYTES % (MANUAL) 2 % (16-48); MONOCYTES % (MANUAL) 8 % (0-11.0); MYELOCYTES % 1 % (0-0); NEUTROPHILS % (MANUAL) 80 (42-76); PROMYELOCYTES % 2 % (0-0)
[2020-02-11] MEDS: HEPARIN SODIUM, PORCINE 5000 UNITS/1 ML VIAL SQ SCH ×2 (11:04→17:00)
[2020-02-11 12:00] VITALS: BP 156/89
[2020-02-11 16:00] VITALS: BP 141/64
--- NOTE | 2020-02-11 17:24 | NUR ---
held heparin patient getting hd currently. will continue to monitor.
--- NOTE | 2020-02-11 19:42 | NUR ---
HD DONE TODAY OUTPUT 500ML.
[2020-02-11 20:00] VITALS: BP 138/72
[2020-02-11] MEDS ORDERED: VANCOMYCIN 1 GM in IV D5W 250 ML IV ONE (21:00)
--- NOTE | 2020-02-11 21:43 | NUR ---
TELE CLOSE NOTES PATIENT IS A/O X 3 ON 4L OF NASAL CANNULA WITH NO SIGNS OF DISTRESS SPO2 94%. IV L FA#22 SL AND R PERMACATH. TELE MONITOR SR WITH PAC 87. PATIENT KEPT CLEAN AND DRY. ALL NEEDS, CARE, TREATMENT, AND MEDICATIONS WERE ADMINISTERED ANTICIPATED PER ORDER. SAFETY MEASURES ARE APPLIED, BED IS IN LOW POSITION SIDE RAILS UP X 2. CALL LIGHT WITHIN REACH WILL ENDORSE TO THE MEDICAL TERMINOLOGIST NURSE.
[2020-02-11] MEDS: INSULIN GLARGINE, 100 UNIT/ML CARTRIDGE SQ SCH (22:05)
[2020-02-12] VITALS (8 sets, daily range): BP systolic 122–163; BP diastolic 64–95
[2020-02-12] MEDS: BLOOD SUGAR DIAGNOSTIC 1 EACH STRIP IN SCH ×6 (00:46→21:58)
[2020-02-12] MEDS: INSULIN REGULAR, HUMAN 100 UNIT/ML 3 ML VIAL SQ PRN ×6 (00:49→22:08)
[2020-02-12] MEDS: ACETAMINOPHEN 325 MG TABLET PO PRN ×2 (02:07→22:13)
[2020-02-12] MEDS: IV NS 0.9% 1,000 ML IV PRN (03:37)
[2020-02-12] MEDS: PIPERACILLIN /TAZOBACTAM 2.25 G in IV D5W 50 ML IV SCH ×3 (04:21→20:49)
[2020-02-12] MEDS ORDERED: VANCOMYCIN 500 MG in IV D5W 100 ML IV PRN (06:00)
--- NOTE | 2020-02-12 06:36 | NUR ---
RN NOTES PATIENT IS A/O X 3 ON 6L OF NASAL CANNULA WITH NO SIGNS OF DISTRESS SPO2 96%. CURRENTLY IN BED. R PERMACATH. TELE MONITOR SR 96. SAFETY MEASURES ARE APPLIED BED IS IN THE LOWEST POSITION SIDE RAILS UP X 2. CALL LIGHT WITHIN REACH WILL CONTINUE TO MONITOR.
[2020-02-12 07:12] LABS: BASOPHILS % (AUTO) 0.1 % (0.0-2.0); EOSINOPHILS % (AUTO) 0.1 % (0.0-6.0); HEMATOCRIT 21 % (39-51); LYMPHOCYTES # (AUTO) 1.2 /CMM (0.8-4.8); LYMPHOCYTES % (AUTO) 5.1 % (20.0-44.0); MEAN CORPUSCULAR HGB CONC 32 g/dl (31.0-36.0); MEAN CORPUSCULAR VOLUME 90 fL (80-96); MONOCYTES # (AUTO) 1.3 /CMM (0.1-1.30); MONOCYTES % (AUTO) 5.5 % (2.0-12.0); NEUTROPHILS # (AUTO) 21.6 /CMM (1.8-8.9); NEUTROPHILS % (AUTO) 89.2 % (43.0-81.0); PLATELET COUNT (AUTO) 284 /CMM (150-450); RED BLOOD CELL COUNT(AUTO) 2.31 MIL/uL (4.5-6.0); WHITE BLOOD COUNT (AUTO) 24.2 K/uL (4.3-11.0)
[2020-02-12 07:31] LABS: HEMOGLOBIN 6.8 g/dL (13.5-17.5)
[2020-02-12 07:39] LABS: CALCIUM, SERUM 7.8 mg/dL (8.5-10.1); CREATININE 2.1 mg/dL (0.6-1.3); PHOSPHORUS 3.7 mg/dL (2.5-4.9); POTASSIUM 3.9 mmol/L (3.5-5.1)
--- NOTE | 2020-02-12 07:47 | NUR ---
TELE OPENING NOTE PATIENT IS IN BED RESTING. PATIENT IS IN NO ACUTE DISTRESS. PATIENT IS ON OXYGEN 6L VIA NC. NO SOB NOTED. HOB ELEVATED. PATIENT IS ON RN HEMATOLOGY READING SR 89 WITH PSCs. SAFETY MEASURES ARE IN PLACE. PATIENTS BED IS LOCKED AND IN THE LOWEST POSITION. SIDE RAILS ARE UP. CALL LIGHT WITHIN REACH. WILL CONTINUE TO MONITOR THOUGHT OUT THE SHIFT.
--- NOTE | 2020-02-12 08:08 | NUR ---
RIBBING MACHINE OPERATOR NOTE PATIENTS HEMOGLOBIN LEVEL IS 6.8. CONTACTED DR. LANDRY. ORDER FOR 1 UNIT PRBC.
[2020-02-12] MEDS: HEPARIN SODIUM, PORCINE 5000 UNITS/1 ML VIAL SQ SCH (09:00)
[2020-02-12] MEDS: DEXAMETHASONE SOD PHOSPHATE 10 MG/ML VIAL IV SCH (09:07)
[2020-02-12] MEDS: PANTOPRAZOLE 40 MG TABLET.DR PO SCH (09:07)
--- NOTE | 2020-02-12 09:09 | NUR ---
CARTON LINER NOTE PATIENTS HEMOGLOBIN IS 6.8. DID NOT ADMINISTER SCHEDULED HEPARIN.
--- NOTE | 2020-02-12 09:10 | NUR ---
INTEGRATED MARKETING MANAGER NOTE HOLDING SCHEDULED MEDICATION DECADRON INJECTION VIA IV, PATIENT IS WAITING FOR MIDLINE PLACEMENT. Addendum: 02/12/20 at 1629 by BEATRICE ARIZMENDI RN ADMINISTERED MEDICATION DECADRON THROUGH NEW IV LINE ACCESS IN LEFT UPPER ARM.
[2020-02-12 09:32] LABS: IRON, SERUM 20 ug/dl (50-175); TOTAL IRON BINDING CAPACITY 139 ug/dl (250-450)
[2020-02-12 10:32] LABS: FERRITIN 2828 ng/mL (8-388)
[2020-02-12 10:40] LABS: BAND % (MANUAL) 4 % (0.0-5.0); LYMPHOCYTES % (MANUAL) 7 % (16-48); MONOCYTES % (MANUAL) 4 % (0-11.0); NEUTROPHILS % (MANUAL) 85 (42-76)
--- NOTE | 2020-02-12 16:17 | NUR ---
MS RN NOTE PATIENT UNDERGOING BLOOD TRANSFUSION. PATIENT TOLERATING WELL. NO ADVERSE REACTIONS NOTED. NO SOB NOTED. PATIENT BREATHING IS EVEN AND UNLABORED. VITAL SIGNS WNL.
[2020-02-12] MEDS ORDERED: VANCOMYCIN 1 GM in IV D5W 250ml IV ONE (18:00)
--- NOTE | 2020-02-12 18:40 | NUR ---
MS RN NOTE PATIENT COMPLETED BLOOD TRANSFUSION. PATIENT TOLERATED WELL. NO ADVERSE REACTIONS NOTED. NO SOB NOTED. PATIENT BREATHING IS EVEN AND UNLABORED. VITAL SIGNS WNL.
--- NOTE | 2020-02-12 19:46 | NUR ---
RN CLOSING NOTE PATIENT IS IN BED RESTING COMFORTABLY. NO SIGNS OR SYMPTOMS OF DISTRESS. PATIENT IS ON OXYGEN 8L ON NC. NO SOB NOTED. HOB ELEVATED. PATIENT HAS TRANSFUSION OF PRBC 1 UNIT DONE. SAFETY MEASURES ARE IN PLACE. BED IS LOCKED AND IN THE LOWEST POSITION. SIDE RAILS ARE UP CALL LIGHT WITHIN REACH. ENDORSE PATIENT TO THE TAPPER SUPERVISOR FOR MESSI.
--- NOTE | 2020-02-12 20:00 | NUR ---
ms aidan initial notes received report from am shift and seen pt in bed resting at this time with o2 at 2 liters via NC. no signs of any acute distress noted. IV line patent and intact. noticed edema on both lower extremities. skin warm to touch. kept him warm and comfortable at all times. bed in low and lock in position with side rails x2 up . place call light at reach. will continue monitoring.
[2020-02-12] MEDS: INSULIN GLARGINE, 100 UNIT/ML CARTRIDGE SQ SCH (22:04)
[2020-02-13] MEDS: BLOOD SUGAR DIAGNOSTIC 1 EACH STRIP IN SCH ×6 (01:02→21:15)
[2020-02-13] MEDS: PIPERACILLIN /TAZOBACTAM 2.25 G in IV D5W 50 ML IV SCH ×3 (05:24→22:23)
[2020-02-13] MEDS: INSULIN REGULAR, HUMAN 100 UNIT/ML 3 ML VIAL SQ PRN ×5 (05:41→21:17)
[2020-02-13 07:23] LABS: BASOPHILS % (AUTO) 0.1 % (0.0-2.0); EOSINOPHILS % (AUTO) 0.1 % (0.0-6.0); HEMATOCRIT 23 % (39-51); HEMOGLOBIN 7.6 g/dL (13.5-17.5); LYMPHOCYTES # (AUTO) 0.7 /CMM (0.8-4.8); LYMPHOCYTES % (AUTO) 2.9 % (20.0-44.0); MEAN CORPUSCULAR HGB CONC 32 g/dl (31.0-36.0); MEAN CORPUSCULAR VOLUME 91 fL (80-96); MONOCYTES # (AUTO) 1.4 /CMM (0.1-1.30); NEUTROPHILS # (AUTO) 21.9 /CMM (1.8-8.9); NEUTROPHILS % (AUTO) 90.9 % (43.0-81.0); PLATELET COUNT (AUTO) 302 /CMM (150-450); RED BLOOD CELL COUNT(AUTO) 2.56 MIL/uL (4.5-6.0); WHITE BLOOD COUNT (AUTO) 24.1 K/uL (4.3-11.0)
--- NOTE | 2020-02-13 07:35 | NUR ---
MS/RN OPENING NOTES RECEIVED PT IN BED. A/O X3. AFEBRILE. WITH ANDREW #22 G, L ANTECUBITAL #20 G, MIRIAM MIDLINE AND R CHEST PERMA CATH. O2 ON 6L/MIN. PROVIDED SAFETY MEASURES. BED IN LOWEST POSITION, LOCKED. SIDE RAILS UP X2. CALL LIGHT WITHIN REACH. WILL CONTINUE PLAN OF CARE.
--- NOTE | 2020-02-13 07:54 | NUR ---
TELE HAIR TINTER CLOSING NOTES PT BACK TO [facility] CHAIR FOR PT SAFETY. STILL CONFUSED , REFUSED TO HAVE TELE MONITOR IN PLACE. NO SIGNS OF ANY ACUTE DISTRESS NOTED. IVF STILL INFUSING. CALLED DR MURILLO REGARDING BLOOD CULTURE RESULT AND GOT ORDERED TO D/C ROCEPHIN AND ORDERED VANCOMYCIN PHARMACY TO DOSE. ENDORSE TO AM NURSE FOR CONTINUITY OF CARE. Addendum: 02/13/20 at 0757 by JULIO MORGAN LVN DISREGARD BELONG TO OTHER PT.
[2020-02-13 08:00] VITALS: BP 158/74
--- NOTE | 2020-02-13 08:00 | NUR ---
MS PHARMACIST PER DIEM CLOSING NOTES PT AWAKE AND ALERT SITTING ON HIS CHAIR WAITING FOR HIS BREAKFAST BLOOD SUGAR 184 , 3 UNITS OF INSULIN GIVEN LANI SQ ORDERED. NO SIGNS OF HYPO/HYPER GLYCEMIA NOTED AT THIS TIME. NO SIGNS OF ANY DISTRESS OR ANY DISCOMFORT NOTED. ALL DUE MEDS GIVEN AND ALL NEEDS MET. KEPT HIM WARM AND COMFORTABLE AT ALL TIMES. WILL ENDORSE TO AM NURSE FOR CONTINUITY OF CARE. PLACE CALL LIGHT AT REACH.
[2020-02-13 08:01] LABS: CALCIUM, SERUM 7.6 mg/dL (8.5-10.1); CREATININE 2.2 mg/dL (0.6-1.3); MAGNESIUM 1.9 mg/dL (1.8-2.4); PHOSPHORUS 3.6 mg/dL (2.5-4.9); POTASSIUM 3.9 mmol/L (3.5-5.1)
[2020-02-13 08:34] LABS: OCCULT BLOOD STOOL NEGATIVE (NEGATIVE)
[2020-02-13] MEDS: DEXAMETHASONE SOD PHOSPHATE 10 MG/ML VIAL IV SCH (09:38)
[2020-02-13] MEDS: PANTOPRAZOLE 40 MG TABLET.DR PO SCH (09:38)
[2020-02-13 10:00] LABS: BAND % (MANUAL) 4 % (0.0-5.0); EOSINOPHILS % (MANUAL) 1 % (0-4); LYMPHOCYTES % (MANUAL) 1 % (16-48); MONOCYTES % (MANUAL) 6 % (0-11.0); MYELOCYTES % 1 % (0-0); NEUTROPHILS % (MANUAL) 87 (42-76)
[2020-02-13] MEDS: ACETAMINOPHEN 325 MG TABLET PO PRN (12:31)
[2020-02-13 16:00] VITALS: BP 115/68
[2020-02-13] MEDS ORDERED: ALTEPLASE CATHFLO 2 MG/VIAL IV ONE (17:30)
[2020-02-13] MEDS: IV NS 0.9% 1,000 ML IV PRN (18:00)
--- NOTE | 2020-02-13 19:07 | NUR ---
MS/RN OPENING NOTES RECEIVED PATIENT RESTING IN BED. A/O X3. NO ACUTE DISTRESS NOTED. ON O2 AT 6LPM VIA NC. TOLERATED WELL. POSITIONED IN SEMI FOWLERS. IV ACCESS ON ANDREW #22 G, LAC #20 G, MIRIAM MIDLINE PATENT AND INTACT. R CHEST PERMA CATH. SAFETY MEASURES IN PLACE. SIDE RAILS UP X3. CALL LIGHT WITHIN REACH. WILL CONTINUE TO MONITOR.
--- NOTE | 2020-02-13 19:36 | NUR ---
MS/RN CLOSING NOTES PATIENT RESTING IN BED. A/O X3. AFEBRILE. HAVING EPISODES OF SOB. POSITIONED IN SEMI FOWLERS. O2 ON 6L/MIN. TAUGHT RELAXATION TECHNIQUES. ANDREW #22 G. L AC #20 G. MIRIAM MIDLINE. R CHEST PERMA CATH. SAFETY MEASURES PROVIDED. SIDE RAILS UP X3. CALL LIGHT WITHIN REACH. WILL ENDORSE TO MARKETING PLANNER FOR MESSI.
[2020-02-13 21:05] VITALS: BP 103/56
[2020-02-13] MEDS: INSULIN GLARGINE, 100 UNIT/ML CARTRIDGE SQ SCH (22:09)
[2020-02-14] MEDS: BLOOD SUGAR DIAGNOSTIC 1 EACH STRIP IN SCH ×6 (00:18→22:13)
[2020-02-14] MEDS: INSULIN REGULAR, HUMAN 100 UNIT/ML 3 ML VIAL SQ PRN ×6 (00:24→22:15)
[2020-02-14] MEDS: PIPERACILLIN /TAZOBACTAM 2.25 G in IV D5W 50 ML IV SCH ×3 (04:10→21:36)
[2020-02-14] MEDS: IV NS 0.9% 1,000 ML IV PRN (05:11)
[2020-02-14 07:19] LABS: BASOPHILS % (AUTO) 0.1 % (0.0-2.0); HEMATOCRIT 23 % (39-51); HEMOGLOBIN 7.4 g/dL (13.5-17.5); LYMPHOCYTES # (AUTO) 0.6 /CMM (0.8-4.8); LYMPHOCYTES % (AUTO) 2.5 % (20.0-44.0); MEAN CORPUSCULAR HGB CONC 32 g/dl (31.0-36.0); MEAN CORPUSCULAR VOLUME 92 fL (80-96); MONOCYTES # (AUTO) 1.4 /CMM (0.1-1.30); MONOCYTES % (AUTO) 5.6 % (2.0-12.0); NEUTROPHILS # (AUTO) 22.7 /CMM (1.8-8.9); NEUTROPHILS % (AUTO) 91.8 % (43.0-81.0); PLATELET COUNT (AUTO) 348 /CMM (150-450); RED BLOOD CELL COUNT(AUTO) 2.51 MIL/uL (4.5-6.0); WHITE BLOOD COUNT (AUTO) 24.8 K/uL (4.3-11.0)
--- NOTE | 2020-02-14 07:33 | NUR ---
MS/RN CLOSING NOTES PATIENT IN BED ASLEEP, AROUSES EASILY. A/O X3. NO ACUTE DISTRESS NOTED. ON O2 AT 6LPM VIA NC, TOLERATED WELL. POSITIONED IN SEMI FOWLERS. IV ACCESS ON ANDREW#22 G, MIRIAM MIDLINE PATENT AND INTACT. R CHEST PERMA CATH. SAFETY MEASURES IN PLACE. SIDE RAILS UP X3. CALL LIGHT WITHIN REACH. WILL ENDORSE TO DAY SHIFT NURSE FOR CONTINUITY OF CARE.
[2020-02-14 07:47] LABS: CALCIUM, SERUM 7.7 mg/dL (8.5-10.1); CREATININE 2.2 mg/dL (0.6-1.3); POTASSIUM 4.1 mmol/L (3.5-5.1)
--- NOTE | 2020-02-14 08:00 | NUR ---
MS/RN OPENING NOTE RECEIVED PATIENT FROM MANAGER RETIREMENT NURSE. PATIENT IS AWAKE IN BED, A/O X3 PATIENT IN NO APPARENT DISTRESS. SAFETY MEASURES IN PLACE, BED LOCKED AND IN LOWEST POSITION, CALL LIGHT WITHIN REACH. WILL CONTINUE TO MONITOR AND ENSURE SAFETY.
[2020-02-14 08:11] VITALS: BP 134/72
[2020-02-14] MEDS: DEXAMETHASONE SOD PHOSPHATE 10 MG/ML VIAL IV SCH (10:02)
[2020-02-14] MEDS: PANTOPRAZOLE 40 MG TABLET.DR PO SCH (10:02)
[2020-02-14 16:00] VITALS: BP 123/73
--- NOTE | 2020-02-14 19:33 | NUR ---
MS RN OPENING NOTES RECEIVED PATIENT IN BED SLEEPING; A/O X3 AND ABLE TO MAKE NEEDS KNOWN. ON O2 6LPM VIA SIMPLE MASK; TOLERATING WELL, WITH SOB. IV ON ANDREW #20; PATENT AND INTACT. R CHEST PERMCATH NOTED; PATENT AND INTACT. HD TODAY WITH OUTPUT OF 3600ML. NO N/V/D NOTED BP 111/66, P 76, T 97.9F. RR 26. BED IS LOWEST LOCKED POSITION, SIDE RAILS UPX2, CALL LIGHT WITHIN REACH. WILL CONTINUE TO MONITOR.
[2020-02-14 20:00] VITALS: BP 134/61
[2020-02-14] MEDS ORDERED: VANCOMYCIN 1 GM in IV D5W 250 ML IV ONE (20:00)
--- NOTE | 2020-02-14 20:02 | NUR ---
MS/RN CLOSING NOTES PATIENT IN BED ASLEEP, AROUSES EASILY. A/O X3. NO ACUTE DISTRESS NOTED. ON O2 AT 6LPM VIA FACE MASK, TOLERATED WELL. POSITIONED IN SEMI FOWLERS. IV ACCESS ON ANDREW#22 G, MIRIAM MIDLINE PATENT AND INTACT. R CHEST PERMA CATH. PATIENT RECEIVING DIALYSIS. SAFETY MEASURES IN PLACE. SIDE RAILS UP X3. CALL LIGHT WITHIN REACH. WILL ENDORSE TO DAY SHIFT NURSE FOR CONTINUITY OF CARE.
[2020-02-14] MEDS: INSULIN GLARGINE, 100 UNIT/ML CARTRIDGE SQ SCH (22:17)
[2020-02-14] MEDS: ACETAMINOPHEN 325 MG TABLET PO PRN (23:46)
[2020-02-15] MEDS: IV NS 0.9% 1,000 ML IV PRN (00:27)
[2020-02-15] MEDS: INSULIN REGULAR, HUMAN 100 UNIT/ML 3 ML VIAL SQ PRN ×6 (00:42→22:49)
[2020-02-15] MEDS: BLOOD SUGAR DIAGNOSTIC 1 EACH STRIP IN SCH ×6 (00:43→22:01)
[2020-02-15] MEDS: PIPERACILLIN /TAZOBACTAM 2.25 G in IV D5W 50 ML IV SCH ×3 (04:23→20:35)
[2020-02-15] MEDS: ACETAMINOPHEN 325 MG TABLET PO PRN (04:23)
[2020-02-15] MEDS ORDERED: VANCOMYCIN 500 MG in IV D5W 100 ML IV PRN (06:00)
[2020-02-15] MEDS: PANTOPRAZOLE 40 MG TABLET.DR PO SCH (06:50)
--- NOTE | 2020-02-15 06:52 | NUR ---
MS RN CLOSING NOTES RECEIVED PATIENT IN BED SLEEPING; A/O X3 AND ABLE TO MAKE NEEDS KNOWN. ON O2 5LPM VIA; NASAL CANNULA TOLERATING WELL, WITH SOB. IV ON ANDREW #20; PATENT AND INTACT, INFUSING NS @ 100ML/HR . R CHEST PERMCATH; DRESSING C/D/I. BED IN LOWEST LOCKED POSITION, SIDE RAILS UPX2, CALL LIGHT WITHIN REACH. WILL CONTINUE TO MONITOR.
[2020-02-15 07:24] LABS: BASOPHILS % (AUTO) 0.1 % (0.0-2.0); EOSINOPHILS % (AUTO) 0.1 % (0.0-6.0); HEMATOCRIT 21 % (39-51); LYMPHOCYTES # (AUTO) 0.7 /CMM (0.8-4.8); LYMPHOCYTES % (AUTO) 3.8 % (20.0-44.0); MEAN CORPUSCULAR HGB CONC 33 g/dl (31.0-36.0); MEAN CORPUSCULAR VOLUME 92 fL (80-96); MONOCYTES # (AUTO) 1.4 /CMM (0.1-1.30); NEUTROPHILS # (AUTO) 15.6 /CMM (1.8-8.9); PLATELET COUNT (AUTO) 337 /CMM (150-450); RED BLOOD CELL COUNT(AUTO) 2.25 MIL/uL (4.5-6.0); WHITE BLOOD COUNT (AUTO) 17.7 K/uL (4.3-11.0)
--- NOTE | 2020-02-15 07:40 | NUR ---
MS/RN OPENING NOTE RECEIVED PATIENT FROM OXIDIZED FINISH PLATER NURSE. PATIENT IS AWAKE IN BED, A/O X3. NO ACUTE DISTRESS NOTED AT THIS TIME. SAFETY MEASURES IN PLACE, BED LOCKED AND IN LOWEST POSITION, CALL LIGHT WITHIN REACH. WILL CONTINUE TO MONITOR AND ENSURE SAFETY.
[2020-02-15 07:43] LABS: HEMOGLOBIN 6.7 g/dL (13.5-17.5)
--- NOTE | 2020-02-15 07:51 | NUR ---
MS/RN CRITICAL LAB LAB CALLED TO INFORM PATIENT HAS CRITICAL LAB VALUE HG OF 6.7 @[address] MESS[address] RODRIGUEZ @0655, AWAITING MD ORDERS.
[2020-02-15 07:57] LABS: CALCIUM, SERUM 7.9 mg/dL (8.5-10.1); CREATININE 2.2 mg/dL (0.6-1.3); POTASSIUM 4.1 mmol/L (3.5-5.1)
[2020-02-15 08:00] VITALS: BP 137/60
--- NOTE | 2020-02-15 08:00 | NUR ---
MS/RN CRITICAL LAB DR. RODRIGUEZ ASSESSED PATIENT IN PERSON RECEIVED VERBAL ORDER NO BLOOD TRANSFUSION AT THIS TIME MD WILL DISCUSS POSSIBLE BLOOD INFUSION DURING DIALYSIS WITH DR. MARCIAL.
[2020-02-15 14:06] LABS: BAND % (MANUAL) 1 % (0.0-5.0); LYMPHOCYTES % (MANUAL) 2 % (16-48); MONOCYTES % (MANUAL) 5 % (0-11.0); MYELOCYTES % 1 % (0-0); NEUTROPHILS % (MANUAL) 91 (42-76)
[2020-02-15 16:00] VITALS: BP 122/74
[2020-02-15 20:00] VITALS: BP 142/75
--- NOTE | 2020-02-15 20:25 | NUR ---
MS/RN CLOSING NOTES PATIENT IN BED ASLEEP, AROUSES EASILY. A/O X3. NO ACUTE DISTRESS NOTED. ON O2 AT 5LPM VIA NASAL CANNULA, TOLERATED WELL. POSITIONED IN SEMI FOWLERS. IV ACCESS ON ANDREW#22 G, MIRIAM MIDLINE PATENT AND INTACT. R CHEST PERMA CATH. PATIENT RECEIVING DIALYSIS. SAFETY MEASURES IN PLACE. SIDE RAILS UP X3. CALL LIGHT WITHIN REACH. WILL ENDORSE TO DAY SHIFT NURSE FOR CONTINUITY OF CARE.
--- NOTE | 2020-02-15 20:55 | NUR ---
MS RN NOTE DR. UMANZOR SAW THE PATIENT & DISCONTINUED ZOSYN & STARTED RIFAMPIN 600 MG IV Q [address] UMANZOR THAT ZOSYN DOSE IS RUNNING AT THIS TIME & MD ADVISED TO LET IT FINISH & THEN START RIFAMPIN AFTER ZOSYN IS FINISHED. NOTED & CARRIED OUT. WILL CONTINUE TO MONITOR THE PATIENT FOR ANY CHANGES.
[2020-02-15 21:07] VITALS: BP 142/75
[2020-02-15] MEDS ORDERED: D5W IV ONE (22:00)
[2020-02-15] MEDS ORDERED: GENTAMICIN IV ONE (22:00)
[2020-02-15] MEDS: INSULIN GLARGINE, 100 UNIT/ML CARTRIDGE SQ SCH (22:46)
[2020-02-15] MEDS: RIFAMPIN 600 MG in IV NS 0.9% 100 ML IV SCH (22:55)
[2020-02-15] MEDS ORDERED: GENTAMICIN 80 MG/2 ML VIAL ONE ×3 (23:53→23:55)
[2020-02-15] MEDS: ALBUTEROL FS 2.5 MG/0.5 ML VIAL.NEB NEB PRN (23:59)
[2020-02-15] MEDS: IPRATROPIUM NEB FS 0.5 MG/2.5 ML AMPUL.NEB NEB PRN (23:59)
[2020-02-16] VITALS (10 sets, daily range): BP systolic 127–160; BP diastolic 48–79
--- NOTE | 2020-02-16 00:05 | NUR ---
MS RN NOTE DR. UMANZOR ORDERED GENTAMICIN IV ONCE, INFORMED TO CHARGE NURSE & MEDICINE WAS PREPARED ORDERED TO ADMINISTER. GENTAMICIN IV ADMINISTERED ORDERED. NO ACUTE CHANGES NOTED.
[2020-02-16] MEDS: ACETAMINOPHEN 325 MG TABLET PO PRN ×3 (00:37→16:25)
--- NOTE | 2020-02-16 00:39 | NUR ---
MS RN NOTE: PRN TYLENOL GIVEN PATIENT C/O NECK PAIN 04/16, WANTED TO TAKE PAIN MEDICINE. PRN TYLENOL 650 MG PO GIVEN. WILL CONTINUE TO MONITOR FOR ANY CHANGES.
[2020-02-16] MEDS: BLOOD SUGAR DIAGNOSTIC 1 EACH STRIP IN SCH ×6 (01:36→21:30)
[2020-02-16] MEDS: INSULIN REGULAR, HUMAN 100 UNIT/ML 3 ML VIAL SQ PRN ×5 (03:11→21:29)
--- NOTE | 2020-02-16 07:30 | NUR ---
yelling out from time to time.sitting up in chair few minutes then wants back to bed.vs stable.
[2020-02-16] MEDS: PANTOPRAZOLE 40 MG TABLET.DR PO SCH (08:22)
--- NOTE | 2020-02-16 08:23 | NUR ---
given tylenol in am for neck pain.
[2020-02-16 10:47] LABS: CALCIUM, SERUM 7.6 mg/dL (8.5-10.1); CREATININE 2.1 mg/dL (0.6-1.3); POTASSIUM 4.1 mmol/L (3.5-5.1)
--- NOTE | 2020-02-16 14:52 | NUR ---
texted dr. krause regarding low hgb.to be dialyzed this herrera.one unit prbc's ordered.
--- NOTE | 2020-02-16 16:26 | NUR ---
given tyl. 650 mg po.temp 99.4.to have transfusion this herrera.
--- NOTE | 2020-02-16 18:45 | NUR ---
angle furnaceman here.vs taken.dialysis started.
--- NOTE | 2020-02-16 19:00 | NUR ---
blood transfusion started.
--- NOTE | 2020-02-16 19:24 | NUR ---
unit of blood completed,with no untoward effects.
[2020-02-16] MEDS ORDERED: VANCOMYCIN 1 GM in IV D5W 250 ML IV ONE (20:00)
--- NOTE | 2020-02-16 20:37 | NUR ---
RN NOTES: PT. ON DIALYSIS , VANCOMYCIN IV GIVE AFTER DIALYSIS DONE, CHARGE NURSE MADE AWARE.
--- NOTE | 2020-02-16 21:15 | NUR ---
RN NOTES: PT. DIALYSIS JUST FINISHED, VS 156/76, 02 95% ON 5 L VIA NASAL CANNULA ,RESP 26 TEMP 100.7 RECTAL , HR 112 HE IS HAVING CHILLS AND SHAKING, TYLENOL WAS GIVEN AT 1625 , 4 HOURS AGO, SAUL VELASCO NOTIFIED MY FINDING , NO NEW OREDS GIVEN , APPLIED COOLING MEASURES DIALYSIS OUT PUT 3000 , WILL CONTINUITY WITH CARE.
--- NOTE | 2020-02-16 22:15 | NUR ---
RN NOTES : RECHECK TEMP 98.9 , PT. IN STABLE CONDITION, PER PT. I FEELING BETTER , NO ACUTE DISTRESS NOTED, SEE THE TEMP CHART, WILL CONTINUE WITH CARE.
[2020-02-16] MEDS: INSULIN GLARGINE, 100 UNIT/ML CARTRIDGE SQ SCH (22:23)
[2020-02-16] MEDS: RIFAMPIN 600 MG in IV NS 0.9% 100 ML IV SCH (22:24)
[2020-02-17] MEDS ORDERED: GENTAMICIN 80 MG in IV D5W 50 ML IV SCH ×2
[2020-02-17] MEDS: ALBUTEROL FS 2.5 MG/0.5 ML VIAL.NEB NEB PRN ×4 (00:48→21:40)
[2020-02-17] MEDS: IPRATROPIUM NEB FS 0.5 MG/2.5 ML AMPUL.NEB NEB PRN ×4 (00:48→21:40)
--- NOTE | 2020-02-17 01:00 | NUR ---
RN NOTES: AT 0100 PT. BLOOD SUGAR 195 MGDL , PT. REUSED TO TAKE COVERAGE , ENCOURAGED X3 PT. STRONGLY REFUSED, WILL CONTINUE WITH CARE.
[2020-02-17] MEDS: BLOOD SUGAR DIAGNOSTIC 1 EACH STRIP IN SCH ×6 (01:05→21:24)
[2020-02-17] MEDS: INSULIN REGULAR, HUMAN 100 UNIT/ML 3 ML VIAL SQ PRN ×5 (01:39→17:10)
--- NOTE | 2020-02-17 03:19 | NUR ---
rn notes pt complained of indigestion. made dr garcia aware with new order read back and carried for maalox 30cc po q8hr prn for indigestion.
[2020-02-17] MEDS: MAG HYDROX/AL HYDROX/SIMETH 30 ML UDC PO PRN ×2 (03:30→16:27)
[2020-02-17 06:48] LABS: BASOPHILS % (AUTO) 0.1 % (0.0-2.0); HEMATOCRIT 23 % (39-51); HEMOGLOBIN 7.4 g/dL (13.5-17.5); LYMPHOCYTES # (AUTO) 0.7 /CMM (0.8-4.8); LYMPHOCYTES % (AUTO) 3.9 % (20.0-44.0); MEAN CORPUSCULAR HGB CONC 32 g/dl (31.0-36.0); MEAN CORPUSCULAR VOLUME 91 fL (80-96); MONOCYTES # (AUTO) 1.4 /CMM (0.1-1.30); MONOCYTES % (AUTO) 7.3 % (2.0-12.0); NEUTROPHILS # (AUTO) 16.3 /CMM (1.8-8.9); NEUTROPHILS % (AUTO) 88.7 % (43.0-81.0); PLATELET COUNT (AUTO) 359 /CMM (150-450); RED BLOOD CELL COUNT(AUTO) 2.53 MIL/uL (4.5-6.0); WHITE BLOOD COUNT (AUTO) 18.4 K/uL (4.3-11.0)
[2020-02-17 07:22] LABS: CALCIUM, SERUM 7.8 mg/dL (8.5-10.1); CREATININE 2.2 mg/dL (0.6-1.3); GENTAMICIN,TROUGH 1.5 ug/ml (0.2-2.0); POTASSIUM 4.3 mmol/L (3.5-5.1)
--- NOTE | 2020-02-17 07:30 | NUR ---
MS RN OPENING NOTES PATIENT IS RESTING IN BED, ABLE TO BE AWAKENED. BREATHING EVEN AND UNLABORED, ON O2 AT 5L/MIN VIA NC, NO SOB. IV LINE ON ANDREW INTACT AND PATENT; R CHEST PERMACATH W/ INTACT DRESSING. S/P HD 02/15 W/ 3L OUTPUT. NO COMPLAINT OF PAIN NOR DISCOMFORT. SAFETY PRECAUTIONS IN PLACE: BED LOCKED AND ON LOWEST POSITION, SR UP X2, CALL LIGHT W/IN REACH. WILL CONTINUE TO MONITOR.
[2020-02-17 08:00] VITALS: BP 134/82
[2020-02-17] MEDS: PANTOPRAZOLE 40 MG TABLET.DR PO SCH (08:04)
[2020-02-17] MEDS ORDERED: GENTAMICIN 80 MG in IV D5W 50 ML IV PRN (09:00)
--- NOTE | 2020-02-17 12:18 | NUR ---
RN NOTES CONSENT FORMS SIGNED BY PATIENT FOR ADRIANNA PROCEDURE FOR TOMORROW AT 0830.
[2020-02-17 16:00] VITALS: BP 124/72
--- NOTE | 2020-02-17 18:03 | NUR ---
RN NOTES PATIENT COMPLAINT OF INDIGESTION; PRN MAALOX GIVEN W/ GOOD EFFECT.
--- NOTE | 2020-02-17 19:00 | NUR ---
MS RN CLOSING NOTES PATIENT IS IN BED RESTING, AWAKE AND VERBALLY RESPONSIVE. A/O X3, ABLE TO MAKE NEEDS KNOWN. BREATHING EVEN AND UNLABORED, CONTINUES ON O2 AT 5L/MIN VIA NC, NO SOB. IV LINE ON ANDREW INTACT AND PATENT; R CHEST PERMACATH W/ DRESSING C/D/I. NO COMPLAINT OF PAIN NOR DISCOMFORT. FOR SCHEDULED PROCEDURE TOMORROW, CONSENT FORMS SIGNED, CHECKLIST ENDORSED TO DISEASE CASE MANAGER RN. SAFETY PRECAUTIONS MAINTAINED: BED LOCKED AND ON LOWEST POSITION, SR UP X2, CALL LIGHT W/IN REACH. ENDORSED TO DISEASE CASE MANAGER RN FOR MESSI.
[2020-02-17 20:00] VITALS: BP 121/68
--- NOTE | 2020-02-17 21:00 | NUR ---
RN NOTES: PT. REFUSED FULL BODY SKIN ASSESSMENT AND PICTURES TAKEN, ENCOURAGED , RISKS BENFITS EXPLINED , PT. STRONGLY REFUSED , PT. BEHAVIOUR VERY UNCOOPERTIVE WITH STAFF , WILL CONTINUE WITH CARE .
[2020-02-17] MEDS: RIFAMPIN 600 MG in IV NS 0.9% 100 ML IV SCH (21:57)
[2020-02-17] MEDS: INSULIN GLARGINE, 100 UNIT/ML CARTRIDGE SQ SCH (22:13)
--- NOTE | 2020-02-18 00:18 | NUR ---
RN NOTES: PT. IS VERY ANXIOUS , SCREAMING YELLING ,AGGRESSIVE WITH STAFF , VERY NEEDY DEMENDING , ARGUMENTATIVE, NON DIRECT AND NOT FOLLOWING ANY REDIRECTIONS , NOTIFIED BUSINESS CONTINUITY CONSULTANT OPHELIA, SAUL VELASCO , CARLOS DOCKERY RECIVED ATIVAN 1 MG INJ X1 , CARLOS CARTY RECIVED AND CARRIED OUT. WILL CONTINUE TO MONITOR.
[2020-02-18] MEDS ORDERED: LORAZEPAM INJ 2 MG/ML VIAL IV ONE (00:30)
[2020-02-18] MEDS: BLOOD SUGAR DIAGNOSTIC 1 EACH STRIP IN SCH ×6 (00:48→21:27)
[2020-02-18] MEDS: INSULIN REGULAR, HUMAN 100 UNIT/ML 3 ML VIAL SQ PRN ×4 (00:51→21:32)
[2020-02-18] MEDS: IPRATROPIUM NEB FS 0.5 MG/2.5 ML AMPUL.NEB NEB PRN ×2 (03:41→22:04)
[2020-02-18] MEDS: ALBUTEROL FS 2.5 MG/0.5 ML VIAL.NEB NEB PRN ×2 (03:41→22:04)
--- NOTE | 2020-02-18 04:58 | NUR ---
RN NOTES PT. IS NPO AFTER MID NIGHT FOR PROCEDURES , PER MD ORDRES, WILL CONTINUE WITH CARE .
[2020-02-18] MEDS: PANTOPRAZOLE 40 MG TABLET.DR PO SCH (07:30)
--- NOTE | 2020-02-18 07:40 | NUR ---
RN OPENING NOTES RECEIVED PATIENT ON BED. ALERT AND ORIENTED X3. PATIENT IN NO APPARENT RESPIRATORY DISTRESS NOTED. NO COMPLAINED OF PAIN. WILL CONTINUE TO MONITOR.
[2020-02-18 08:00] VITALS: BP 145/69
[2020-02-18 08:21] LABS: CALCIUM, SERUM 7.8 mg/dL (8.5-10.1); CREATININE 2.6 mg/dL (0.6-1.3); POTASSIUM 4.8 mmol/L (3.5-5.1)
--- NOTE | 2020-02-18 08:38 | NUR ---
RN NOTES FOREST RANGERCAMERA TECHNICIAN WAS CANCELLED TODAY. Addendum: 02/18/20 at 0930 by NATLAIIA BELTRAN RN ERROR
[2020-02-18 08:45] LABS: GENTAMICIN,TROUGH 0.6 ug/ml (0.2-2.0)
--- NOTE | 2020-02-18 09:00 | NUR ---
RN NOTES PATIENT IS ON NPO REGULAR INSULIN WAS WITHHOLD. WILL CONTINUE TO MONITOR.
--- NOTE | 2020-02-18 09:30 | NUR ---
RN NOTES TTE WAS CANCELLED PER OR NURSE DUE TO NO ECHOCARDIOGRAM IS NOT AVAILABLE MD IS AWARE.
--- NOTE | 2020-02-18 10:30 | NUR ---
RN NOTES DR. CURRY CAME, HE REMOVED THE HEMODIALYSIS CATHETER. WILL CONTINUE TO MONITOR.
[2020-02-18 16:00] VITALS: BP 121/71
--- NOTE | 2020-02-18 19:30 | NUR ---
RN NOTES PATIENT IS ON BED ALERT AND ORIENTED X3. PATIENT ON 5L OXYGEN VIA NASAL CANNULA SATURATION 95%. PATIENT IN NO APPARENT RESPIRATORY DISTRESS NOTED AT THIS TIME. IV ACCESS AT LEFT UPPER ARM PATENT AND INTACT. SAFETY PRECAUTIONS WAS IN PLACED. BED IN LOWEST POSITION AND LOCKED. SIDERAILS UP X2. . CALL LIGHT WITHIN REACH. WILL CONTINUE TO MONITOR.
[2020-02-18 20:00] VITALS: BP 116/62
--- NOTE | 2020-02-18 20:15 | NUR ---
MS/RN CLOSING NOTES PATIENT IS ON BED ALERT AND ORIENTED X3. PATIENT ON 5L OXYGEN VIA NASAL CANNULA SATURATION 95%. PATIENT IN NO APPARENT RESPIRATORY DISTRESS NOTED AT THIS TIME. SEEN AND EXAMINED BY MD WITH ORDERS MADE AND CARRIED OUT. ALL DUE MEDICATIONS WAS GIVEN. IV ACCESS AT LEFT UPPER ARM PATENT AND INTACT. SAFETY PRECAUTIONS WAS IN PLACED. BED IN LOWEST POSITION AND LOCKED. SIDERAILS UP X2. PATIENT REFUSED TO TAKE BLOOD SUGAR. CALL LIGHT WITHIN REACH. WILL ENDORSED TO PAID SEARCH MARKETING ANALYST FOR MESSI.
--- NOTE | 2020-02-18 22:00 | NUR ---
RN NOTES NOTED SACRAL WOUND CLEANED THE WOUND APPLIED Z GUARD AND A MEPILEX DRESSING. NEW ORDER FOR WOUND CONSULT WAS PLACED
[2020-02-18] MEDS: INSULIN GLARGINE, 100 UNIT/ML CARTRIDGE SQ SCH (22:38)
[2020-02-18] MEDS: RIFAMPIN 600 MG in IV NS 0.9% 100 ML IV SCH (22:39)
[2020-02-18] MEDS: ACETAMINOPHEN 325 MG TABLET PO PRN (22:51)
[2020-02-18] MEDS: MAG HYDROX/AL HYDROX/SIMETH 30 ML UDC PO PRN (23:06)
[2020-02-19] MEDS: INSULIN REGULAR, HUMAN 100 UNIT/ML 3 ML VIAL SQ PRN ×6 (00:52→20:57)
[2020-02-19] MEDS: BLOOD SUGAR DIAGNOSTIC 1 EACH STRIP IN SCH ×6 (01:02→20:37)
[2020-02-19] MEDS: GUAIFENESIN/CODEINE 10 ML UDC PO PRN (03:26)
--- NOTE | 2020-02-19 05:30 | NUR ---
RN NOTES PT HAS BEEN SITTING IN THE BEDSIDE CHAIR SINCE 194 REFUSES TO GET BACK IN BED. HAVE TRIED TO GET HIM TO GET BACK IN BED PT INSISTS ON STAYING ON THE CHAIR. WILL ATTEMPT AGAIN. WILL CONTINUE TO MONITOR.
--- NOTE | 2020-02-19 06:31 | NUR ---
RN NOTES PATIENT IS ALERT AND ORIENTED X3. PATIENT ON 5L OXYGEN VIA NASAL CANNULA SATURATION 95%. PATIENT IN NO APPARENT RESPIRATORY DISTRESS NOTED AT THIS TIME. IV ACCESS AT LEFT UPPER ARM PATENT AND INTACT. SAFETY PRECAUTIONS WAS IN PLACED. BED IN LOWEST POSITION AND LOCKED. SIDERAILS UP X2.. WAS ABLE TO TYO GET PATIENT TO AGREE TO GET BACK IN BED. CALL LIGHT WITHIN REACH. WILL ENDORSE CARE TO DAY SHIFT NURSE.
[2020-02-19 07:19] LABS: BASOPHILS % (AUTO) 0.3 % (0.0-2.0); EOSINOPHILS % (AUTO) 0.6 % (0.0-6.0); LYMPHOCYTES # (AUTO) 0.7 /CMM (0.8-4.8); LYMPHOCYTES % (AUTO) 6.7 % (20.0-44.0); MEAN CORPUSCULAR HGB CONC 33 g/dl (31.0-36.0); MEAN CORPUSCULAR VOLUME 90 fL (80-96); MONOCYTES % (AUTO) 9.3 % (2.0-12.0); NEUTROPHILS # (AUTO) 9.2 /CMM (1.8-8.9); NEUTROPHILS % (AUTO) 83.1 % (43.0-81.0); PLATELET COUNT (AUTO) 320 /CMM (150-450); RED BLOOD CELL COUNT(AUTO) 2.07 MIL/uL (4.5-6.0); WHITE BLOOD COUNT (AUTO) 11.1 K/uL (4.3-11.0)
[2020-02-19 07:35] LABS: CALCIUM, SERUM 7.9 mg/dL (8.5-10.1); CREATININE 2.2 mg/dL (0.6-1.3); POTASSIUM 4.9 mmol/L (3.5-5.1)
[2020-02-19 08:00] LABS: HEMATOCRIT 19 % (39-51); HEMOGLOBIN 6.1 g/dL (13.5-17.5)
--- NOTE | 2020-02-19 08:00 | NUR ---
m/s compress machine operator: notes in bed awake, a/ox3. hob elevated. informed pt re: low hgb/hct. offered to be turned and repositioned, but pt refused, wants to lie supine. will continue to monitor.
--- NOTE | 2020-02-19 08:10 | NUR ---
m/s ediphone operator: notes matty barriga (acnp) notified and made aware re: low h/h 6.02/25 with order to transfuse 1 unit of prbc. order read back and carried out and noted. pt made aware.
[2020-02-19 08:20] VITALS: BP 128/62
[2020-02-19] MEDS: ALBUTEROL FS 2.5 MG/0.5 ML VIAL.NEB NEB PRN ×3 (08:48→22:48)
[2020-02-19] MEDS: IPRATROPIUM NEB FS 0.5 MG/2.5 ML AMPUL.NEB NEB PRN ×3 (08:48→22:48)
[2020-02-19] MEDS: PANTOPRAZOLE 40 MG TABLET.DR PO SCH (09:09)
[2020-02-19] MEDS: ACETAMINOPHEN 325 MG TABLET PO PRN ×2 (09:09→23:09)
--- NOTE | 2020-02-19 09:13 | NUR ---
WOUND CARE CONSULT: PT PRESENTS WITH RASH AND PEELING SKIN TO SCROTUM, PERINEUM, REDNESS TO INNER THIGHS AND MOISTURE ASSOCIATED SKIN DAMAGE TO GLUTEAL CREASE. PT ANSWERS "NO" WHEN ASKED TO ASSIST WITH TURNING TO HIS SIDE. RECOMMENDATIONS MADE FOR SKIN PROTECTION AND DISCUSSED WITH NURSING STAFF. PT IS ON BIDDEFORD POOL ISOFLEX LOW AIRLOSS BED. MD IN AGREEMENT WITH PLAN OF CARE.
--- NOTE | 2020-02-19 10:00 | NUR ---
m/s railroad conductor: notes pt still refused to be turned and repositioned despite encouragement and education. incontinent care rendered. kept clean and dry. pt has episodes of yelling and screaming and always requesting for a massage. reality orientation provided prn. will continue to monitor.
[2020-02-19 10:47] LABS: BAND % (MANUAL) 2 % (0.0-5.0); EOSINOPHILS % (MANUAL) 2 % (0-4); LYMPHOCYTES % (MANUAL) 7 % (16-48); MONOCYTES % (MANUAL) 9 % (0-11.0); NEUTROPHILS % (MANUAL) 80 (42-76)
[2020-02-19 13:00] VITALS: BP 139/68
--- NOTE | 2020-02-19 13:00 | NUR ---
m/s product development carpenter: notes setting up pt for blood transfusion. vss, temp at 99.3 (o). will monitor.
--- NOTE | 2020-02-19 13:10 | NUR ---
m/s mortar carrier; notes blood transfusion started at this time. will monitor for any reactions. nurse at bedside.
[2020-02-19 13:25] VITALS: BP 117/93
--- NOTE | 2020-02-19 13:25 | NUR ---
m/s milk and cream grader: notes no a/r noted after 15 minutes of blood transfusion. bs check 146, held insulin due to pt refused lunch. will continue to monitor.
[2020-02-19] MEDS: CLOTRIMAZOLE 1% 15 GM TUBE TP SCH ×2 (13:32→17:00)
[2020-02-19 14:25] VITALS: BP 133/55
--- NOTE | 2020-02-19 14:25 | NUR ---
m/s technician semiconductor development: notes blood transfusion still infusing with no a/r noted. vss, afebrile. will continue to monitor.
[2020-02-19 16:00] VITALS: BP_SYST 122; BP_SYST 132; BP_DIAS 64
--- NOTE | 2020-02-19 16:00 | NUR ---
m/s retort fireman: notes blood transfusion completed without a/r noted. pt still refuses to be turned and repositioned, just wants to lay supine with hob elevated. vss, afebrile. instructed to call for assistance. will continue to monitor. Addendum: 02/19/20 at 1943 by TYSHAWN KOHLI ASSISTANT MANAGER QUALITY MANAGEMENT pt still refusing to be turned on the side, pt prefers to lie supine with hob elevated.
--- NOTE | 2020-02-19 17:15 | NUR ---
m/s textile coating machine operator: notes bs [id number], pt refused insulin coverage. will continue to monitor.
--- NOTE | 2020-02-19 18:00 | NUR ---
m/s drafter geophysical: notes pt remains non-compliant with turning and repositioning on the side. needs attended. call light within reach. will continue to monitor.
--- NOTE | 2020-02-19 19:15 | NUR ---
m/s client services director: notes report given to demarcus (shayla) for continuity of care.
--- NOTE | 2020-02-19 19:30 | NUR ---
MS RN OPENING NOTES RECEIVED PATIENT IN BED AWAKE, ALERT AND ORIENTED X3. ABLE TO VERBALIZE NEEDS. NO S/SX OF ACUTE RESPIRATORY DISTRESS NOTED. ON 02 @5LPM VIA NC, TOLERATING WELL. DENIES PAIN OR DISCOMFORT AT THIS TIME. IV ACCESS ON ANDREW #22G PATENT AND INTACT. KEPT CLEAN AND DRY. SAFETY PRECAUTION IN PLACE AND MAINTAINED AT ALL TIMES. BED IN LOWEST LOCKED POSITION, HOB ELEVATED, SIDE RAILS UP X 2, CALL LIGHT AND TABLE WITHIN REACH. WILL CONTINUE TO MONITOR.
[2020-02-19 20:00] VITALS: BP 132/62
[2020-02-19] MEDS: INSULIN GLARGINE, 100 UNIT/ML CARTRIDGE SQ SCH (21:28)
[2020-02-19] MEDS: RIFAMPIN 600 MG in IV NS 0.9% 100 ML IV SCH (21:41)
[2020-02-20] MEDS: MAG HYDROX/AL HYDROX/SIMETH 30 ML UDC PO PRN ×2 (00:03→22:42)
[2020-02-20] MEDS: BLOOD SUGAR DIAGNOSTIC 1 EACH STRIP IN SCH ×6 (00:41→21:25)
[2020-02-20] MEDS: INSULIN REGULAR, HUMAN 100 UNIT/ML 3 ML VIAL SQ PRN ×6 (00:46→21:07)
--- NOTE | 2020-02-20 00:52 | NUR ---
MS RN NOTE: PATIENT CONTINUES ON YELLING AND SCREAMING, VERY DEMANDING, NEEDY AND ATTENTION SEEKING, UNABLE TO REDIRECT BEHAVIOR. NOTIFIED SUPERVISOR WHEEL SHOP VALERIE REGARDING PATIENT'S CURRENT BEHAVIOR WITH NEW ORDER OF ATIVAN 1MG IV Q6HRS PRN NOTED AND CARRIED OUT. WILL CONTINUE TO MONITOR PATIENT'S SAFETY.
[2020-02-20 01:00] VITALS: BP 130/68
[2020-02-20] MEDS: LORAZEPAM INJ 2 MG/ML VIAL IV PRN (01:07)
--- NOTE | 2020-02-20 06:55 | NUR ---
MS RN CLOSING NOTES PATIENT IN BED AWAKE, ALERT AND ORIENTED X3. ABLE TO VERBALIZE NEEDS. PATIENT STILL HAS EPISODES OF YELLING AND SCREAMING. ALL NEEDS MET ATTENDED. NO S/SX OF ACUTE RESPIRATORY DISTRESS NOTED. ON 02 @5LPM VIA NC, TOLERATING WELL. DENIES PAIN OR DISCOMFORT AT THIS TIME. IV ACCESS ON ANDREW #22G PATENT AND INTACT. KEPT CLEAN AND DRY. SAFETY PRECAUTION IN PLACE AND MAINTAINED AT ALL TIMES. BED IN LOWEST LOCKED POSITION, HOB ELEVATED, SIDE RAILS UP X 2, CALL LIGHT AND TABLE WITHIN REACH. WILL ENDORSE TO DAY SIFT NURSE FOR CONTINUITY OF CARE.
[2020-02-20 07:27] LABS: CALCIUM, SERUM 7.7 mg/dL (8.5-10.1); MAGNESIUM 2.1 mg/dL (1.8-2.4); POTASSIUM 4.6 mmol/L (3.5-5.1)
--- NOTE | 2020-02-20 07:35 | NUR ---
MS/RN OPENING NOTES PATIENT RECEIVED IN BED, YELLING AND SCREAMING. A/O X 3. IN NO APPARENT DISTRESS. ANDREW #22 G. NC 5L/MIN. PROVIDED SAFETY MEASURES. BED IN LOWEST POSITION, LOCKED. SIDE RAILS UP X2. CALL LIGHT WITHIN REACH. WILL CONTINUE PLAN OF CARE.
[2020-02-20 08:45] VITALS: BP 163/88
[2020-02-20] MEDS: PANTOPRAZOLE 40 MG TABLET.DR PO SCH (09:04)
[2020-02-20] MEDS: CLOTRIMAZOLE 1% 15 GM TUBE TP SCH ×2 (09:04→17:54)
[2020-02-20 11:05] LABS: BASOPHILS # (AUTO) 0.2 /CMM (0.0-0.2); BASOPHILS % (AUTO) 1.1 % (0.0-2.0); EOSINOPHILS % (AUTO) 0.3 % (0.0-6.0); HEMATOCRIT 23 % (39-51); HEMOGLOBIN 7.4 g/dL (13.5-17.5); LYMPHOCYTES # (AUTO) 0.6 /CMM (0.8-4.8); LYMPHOCYTES % (AUTO) 4.6 % (20.0-44.0); MEAN CORPUSCULAR HGB CONC 32 g/dl (31.0-36.0); MEAN CORPUSCULAR VOLUME 92 fL (80-96); MONOCYTES # (AUTO) 1.3 /CMM (0.1-1.30); MONOCYTES % (AUTO) 9.3 % (2.0-12.0); NEUTROPHILS # (AUTO) 11.8 /CMM (1.8-8.9); NEUTROPHILS % (AUTO) 84.7 % (43.0-81.0); PLATELET COUNT (AUTO) 340 /CMM (150-450)
--- NOTE | 2020-02-20 18:45 | NUR ---
MS/RN CLOSING NOTES PATIENT IN CHAIR. A/O X3. UNCOOPERATIVE. IN NO APPARENT DISTRESS. ANDREW #22 G. NC 5L/MIN. ROUTINE MEDS WERE GIVEN. PROVIDED SAFETY MEASURES. BED IN LOWEST POSITION, LOCKED. SIDE RAILS UP X2. CALL LIGHT WITHIN REACH. WILL ENDORSE TO HEALTH CARE CONSULTANT MESSI. .
--- NOTE | 2020-02-20 20:00 | NUR ---
MS RN OPENING NOTES RECEIVED PATIENT IN BED AWAKE, ALERT . NO S/SX OF ACUTE RESPIRATORY DISTRESS NOTED. ON 02 @5LPM VIA NC, TOLERATING WELL. DENIES PAIN OR DISCOMFORT AT THIS TIME. IV ACCESS ON LFA #22G PATENT AND INTACT. KEPT CLEAN AND DRY. SAFETY PRECAUTION IN PLACE AND MAINTAINED AT ALL TIMES. BED IN LOWEST LOCKED POSITION, HOB ELEVATED, SIDE RAILS UP X 2, CALL LIGHT AND TABLE WITHIN REACH. WILL CONTINUE TO MONITOR.
[2020-02-20] MEDS: CIPROFLOXACIN HCL 0.3% 5 ML BOTTLE RIGHTEYE SCH (20:44)
[2020-02-20] MEDS: RIFAMPIN 600 MG in IV NS 0.9% 100 ML IV SCH (21:13)
[2020-02-20] MEDS: INSULIN GLARGINE, 100 UNIT/ML CARTRIDGE SQ SCH (22:18)
[2020-02-21] MEDS: BLOOD SUGAR DIAGNOSTIC 1 EACH STRIP IN SCH ×6 (00:35→21:38)
[2020-02-21] MEDS: INSULIN REGULAR, HUMAN 100 UNIT/ML 3 ML VIAL SQ PRN ×5 (01:21→18:03)
[2020-02-21] MEDS: IPRATROPIUM NEB FS 0.5 MG/2.5 ML AMPUL.NEB NEB PRN (04:08)
[2020-02-21] MEDS: ALBUTEROL FS 2.5 MG/0.5 ML VIAL.NEB NEB PRN (04:08)
--- NOTE | 2020-02-21 06:50 | NUR ---
RN NOTES: RECEVIED CALL FROM DR. HAMMONDS , KEEP PT. NPO, AND POSSIBLE PERMA CATH PROCEDURES TODAY, WILL ENDORSE TO AM NURSE FOR CONTINUTY FOR CARE , Addendum: 02/21/20 at 0739 by ROSSI THORPE RN MD WENDY CARCAMO .
[2020-02-21] MEDS: PANTOPRAZOLE 40 MG TABLET.DR PO SCH (07:30)
[2020-02-21 07:34] LABS: BASOPHILS % (AUTO) 0.4 % (0.0-2.0); EOSINOPHILS % (AUTO) 0.6 % (0.0-6.0); HEMATOCRIT 21 % (39-51); LYMPHOCYTES # (AUTO) 0.8 /CMM (0.8-4.8); LYMPHOCYTES % (AUTO) 7.6 % (20.0-44.0); MEAN CORPUSCULAR HGB CONC 33 g/dl (31.0-36.0); MEAN CORPUSCULAR VOLUME 90 fL (80-96); MONOCYTES # (AUTO) 1.2 /CMM (0.1-1.30); MONOCYTES % (AUTO) 11.6 % (2.0-12.0); NEUTROPHILS # (AUTO) 8.3 /CMM (1.8-8.9); NEUTROPHILS % (AUTO) 79.8 % (43.0-81.0); PLATELET COUNT (AUTO) 293 /CMM (150-450); RED BLOOD CELL COUNT(AUTO) 2.34 MIL/uL (4.5-6.0); WHITE BLOOD COUNT (AUTO) 10.4 K/uL (4.3-11.0)
--- NOTE | 2020-02-21 07:36 | NUR ---
RN NOTES: PT. REFUSED TO CONSENT SIGNS FOR PERMA CATH , ENCOURAGED , STILL REFUSED , ENDORSED TO AM NURSE FOR CONUNITY OF CARE.
[2020-02-21 07:46] LABS: CALCIUM, SERUM 7.7 mg/dL (8.5-10.1); CREATININE 1.8 mg/dL (0.6-1.3); MAGNESIUM 2.1 mg/dL (1.8-2.4); PHOSPHORUS 3.9 mg/dL (2.5-4.9); POTASSIUM 4.6 mmol/L (3.5-5.1)
--- NOTE | 2020-02-21 07:47 | NUR ---
RN OPENING NOTE RECEIVED PATIENT RESTING IN BED. AGITATED AT TIMES, YELLING OUT. ALERT AND ORIENTED X 3. CONTINUES ON O2 5L VIA NC WITH NO S/S RESPIRATORY DISTRESS. TELE PATIENT WITH NSR. IV #22G TO LEFT FOREARM INTACT AND PATENT. PATIENT HAS REMAINED NPO THROUGHOUT THE NIGHT. CALL LIGHT WITHIN REACH. WILL CONTINUE TO MONITOR. Addendum: 02/21/20 at 0750 by ERNA SUTHERLAND RN PATIENT IS MS, NOT TELE.
[2020-02-21 08:00] VITALS: BP 154/59
[2020-02-21 08:10] LABS: HEMOGLOBIN 6.9 g/dL (13.5-17.5)
--- NOTE | 2020-02-21 08:29 | NUR ---
MS RN NOTE PATIENT HGB 6.9. INFORMED LUIS E MARIANO AND PER MD ORDER FOR ONE UNIT PRBC.
[2020-02-21] MEDS: CIPROFLOXACIN HCL 0.3% 5 ML BOTTLE RIGHTEYE SCH ×2 (09:36→17:32)
[2020-02-21] MEDS: CLOTRIMAZOLE 1% 15 GM TUBE TP SCH ×2 (09:38→17:32)
--- NOTE | 2020-02-21 09:45 | NUR ---
MS RN NOTE PATIENTS BLOOD SUGAR IS 161 AT 9:30. INSULIN HELD DUE TO PATIENT NPO STATUS FOR SURGERY.
[2020-02-21] MEDS ORDERED: LIDOCAINE HCL/MPF 1% 30 ML VIAL IJ ONE (09:58)
[2020-02-21] MEDS ORDERED: HEPARIN SODIUM, PORCINE 1,000 UNIT/ML VIAL ONE (09:59)
--- NOTE | 2020-02-21 10:57 | NUR ---
MS RN NOTE PATIENT GOING TO OR FOR PERMACATH PLACEMENT. BLOOD WAS PICKED UP AND GIVEN TO OR NURSE. PER OR NURSE THEY WILL START BLOOD TRANSFUSION IN OR.
[2020-02-21 13:15] VITALS: BP 111/64
[2020-02-21 13:30] VITALS: BP 124/56
--- NOTE | 2020-02-21 13:30 | NUR ---
MS RN NOTE PATIENT WAS STARTED BLOOD TRANSFUSION IN OR STARTED AT [address] GLASS. PATIENT BP 137/79, HR 78, RR 18, TEMP 96.9. PER FABY PALOMO IN OR PATIENT DID NOT HAVE ANY ADVERSE REACTIONS. NO SOB NOTED. AT 1120 VITALS WERE BP 137/74, HR 79, RR 18, TEMP 96.9. NO ADVERSE REACTIONS NOTED PER FABY PALOMO IN OR. PATIENT ARRIVED IN UNIT FROM PERMACATH PLACEMENT AT 1315. BLOOD TRANSFUSION ONGOING, PATIENT BP 111/64, HR 80, RR 18, TEMP 97.2, SPO2 97% ON 4L NC. TRANSFUSION RECORD OF START IN MEDICAL RECORD PAPER SET IN CHART, STARTED BY OR.
[2020-02-21 14:30] VITALS: BP 118/54
--- NOTE | 2020-02-21 14:35 | NUR ---
MS RN NOTE PATIENT COMPLETED BLOOD TRANSFUSION. NO ADVERSE REACTIONS NOTED. PATIENT BREATHING IS EVEN AND UNLABORED. NO SOB NOTED. BLOOD MEDICAL RECORD TRANSFUSION PAPER COMPLETED IN CHART.
[2020-02-21 16:00] VITALS: BP 111/55
--- NOTE | 2020-02-21 18:36 | NUR ---
MS RN CLOSING NOTE PATIENT CURRENTLY SLEEPING IN BED. ALERT AND ORIENTED X 3. DEMANDING BEHAVIORS AT TIMES, YELLING OUT, SHOUTING. NO COMPLAINTS OF PAIN THIS SHIFT. IV ACCESS TO LEFT AC AND LEFT FOREARM PATENT AND INTACT. PERMACATH TO RIGHT CHEST FREE OF S/S INFECTION. ASPIRATION, SAFETY AND FALL PRECAUTIONS MAINTAINED. CALL LIGHT WITHIN REACH. WILL ENDORSE CARE TO PM SHIFT.
[2020-02-21 20:00] VITALS: BP 138/70
--- NOTE | 2020-02-21 21:00 | NUR ---
RN NOTES: PT. BS 165/BUT PT. REFUSED COVERAGE , ENCOURAGED , STILL REFUSED, PT. BEHAVIOR VERY UNCOOPERTIVE , WILL CONTINUE WITH CARE.
[2020-02-21] MEDS: INSULIN GLARGINE, 100 UNIT/ML CARTRIDGE SQ SCH (21:39)
[2020-02-21] MEDS: RIFAMPIN 600 MG in IV NS 0.9% 100 ML IV SCH (22:27)
[2020-02-22] MEDS: BLOOD SUGAR DIAGNOSTIC 1 EACH STRIP IN SCH ×6 (01:19→20:59)
[2020-02-22] MEDS: INSULIN REGULAR, HUMAN 100 UNIT/ML 3 ML VIAL SQ PRN ×4 (01:24→17:26)
[2020-02-22] MEDS: IPRATROPIUM NEB FS 0.5 MG/2.5 ML AMPUL.NEB NEB PRN ×4 (01:55→20:05)
[2020-02-22] MEDS: ALBUTEROL FS 2.5 MG/0.5 ML VIAL.NEB NEB PRN ×4 (01:55→20:05)
--- NOTE | 2020-02-22 05:00 | NUR ---
RN NOTES: AT 0500 PT. REFUSED TO CHECK BLOOD SUGAR, ENCOURAGED RISKS AND BENFITS EXPLINED , STILL REFUSED, WILL CONTINUE WITH CARE.
[2020-02-22 07:16] LABS: CALCIUM, SERUM 7.7 mg/dL (8.5-10.1); CREATININE 1.8 mg/dL (0.6-1.3); MAGNESIUM 2.3 mg/dL (1.8-2.4); PHOSPHORUS 3.6 mg/dL (2.5-4.9); POTASSIUM 4.6 mmol/L (3.5-5.1)
--- NOTE | 2020-02-22 07:16 | NUR ---
RN NOTE: PATIENT BEHAVIOUR UNCOOPERTIVE DEMANDING BEHAVIORS AT TIMES, YELLING OUT, SHOUTING. NO COMPLAINTS OF PAIN THIS SHIFT. IV ACCESS TO LEFT AC AND LEFT FOREARM PATENT AND INTACT. PERMCATH TO RIGHT CHEST . ASPIRATION, SAFETY AND FALL PRECAUTIONS MAINTAINED. CALL LIGHT WITHIN REACH. WILL ENDORSE AM NURSE FOR CONTINUITY OF CARE.
[2020-02-22 07:17] LABS: VANCOMYCIN,RANDOM 3 ug/ml (18-26)
[2020-02-22 07:19] LABS: BASOPHILS % (AUTO) 0.3 % (0.0-2.0); EOSINOPHILS % (AUTO) 0.7 % (0.0-6.0); HEMATOCRIT 25 % (39-51); HEMOGLOBIN 8.3 g/dL (13.5-17.5); LYMPHOCYTES # (AUTO) 0.7 /CMM (0.8-4.8); LYMPHOCYTES % (AUTO) 7.4 % (20.0-44.0); MEAN CORPUSCULAR HGB CONC 33 g/dl (31.0-36.0); MEAN CORPUSCULAR VOLUME 92 fL (80-96); MONOCYTES # (AUTO) 0.9 /CMM (0.1-1.30); MONOCYTES % (AUTO) 9.4 % (2.0-12.0); NEUTROPHILS # (AUTO) 7.9 /CMM (1.8-8.9); NEUTROPHILS % (AUTO) 82.2 % (43.0-81.0); PLATELET COUNT (AUTO) 277 /CMM (150-450); RED BLOOD CELL COUNT(AUTO) 2.76 MIL/uL (4.5-6.0); WHITE BLOOD COUNT (AUTO) 9.7 K/uL (4.3-11.0)
[2020-02-22 07:20] LABS: GENTAMICIN,RANDOM < 0.2 ug/ml (4.0-8.0)
[2020-02-22 08:41] VITALS: BP 151/81
[2020-02-22] MEDS: ACETAMINOPHEN 325 MG TABLET PO PRN (08:43)
[2020-02-22] MEDS: PANTOPRAZOLE 40 MG TABLET.DR PO SCH (08:43)
[2020-02-22] MEDS: CLOTRIMAZOLE 1% 15 GM TUBE TP SCH ×2 (08:45→17:24)
[2020-02-22] MEDS: CIPROFLOXACIN HCL 0.3% 5 ML BOTTLE RIGHTEYE SCH ×2 (08:47→17:24)
--- NOTE | 2020-02-22 09:20 | NUR ---
m/s fuel island attendant: notes hd tx started by césar (hd nurse) at this time.
--- NOTE | 2020-02-22 10:00 | NUR ---
m/s nitroglycerin neutralizer: notes pt still refused to be turned and repositioned despite encouragement and education. incontinent care rendered. kept clean and dry. pt still has episodes of yelling and screaming. reality orientation provided prn. will continue to monitor.
--- NOTE | 2020-02-22 10:00 | NUR ---
m/s statistician theoretical: notes hd tx in progress. will continue to monitor.
[2020-02-22 11:00] VITALS: BP 112/64
--- NOTE | 2020-02-22 11:00 | NUR ---
m/s binder and box builder: notes hd tx completed. bp 112/64, hr 88. will continue to monitor.
--- NOTE | 2020-02-22 12:00 | NUR ---
m/s veterinary technician instructor: notes pt still refused to be turned and repositioned despite encouragement and education. incontinent care rendered. kept clean and dry. pt still has episodes of yelling and screaming. reality orientation provided prn. will continue to monitor.
--- NOTE | 2020-02-22 14:00 | NUR ---
m/s electronic test technician: notes pt still refused to be turned and repositioned despite encouragement and education. incontinent care rendered. kept clean and dry. pt still has episodes of yelling and screaming. reality orientation provided prn. will continue to monitor.
[2020-02-22] MEDS: GUAIFENESIN/CODEINE 10 ML UDC PO PRN (15:47)
[2020-02-22] MEDS ORDERED: VANCOMYCIN 1 GM in IV D5W 250 ML IV ONE (16:00)
[2020-02-22 16:05] VITALS: BP 127/71
--- NOTE | 2020-02-22 19:00 | NUR ---
m/s graduation coach: notes report given to demarcus (shayla) for continuity of care.
--- NOTE | 2020-02-22 19:10 | NUR ---
MS RN OPENING NOTES RECEIVED PATIENT IN BED ASLEEP, AROUSES EASILY. NO S/SX OF ACUTE RESPIRATORY DISTRESS NOTED. ON 02 @5LPM VIA NC, TOLERATING WELL. DENIES PAIN OR DISCOMFORT AT THIS TIME. IV ACCESS ON LAC #18G PATENT AND INTACT. ON RIGHT CHEST WALL PERMA CATHETER. REPOSITIONED FOR COMFORT. KEPT CLEAN AND DRY. SAFETY PRECAUTIONS IN PLACE AND MAINTAINED AT ALL TIMES. BED IN LOWEST LOCKED POSITION, HOB ELEVATED, SIDE RAILS UP X 2, CALL LIGHT AND TABLE WITHIN REACH. WILL CONTINUE TO MONITOR.
[2020-02-22 20:00] VITALS: BP 133/72
[2020-02-22] MEDS: RIFAMPIN 600 MG in IV NS 0.9% 100 ML IV SCH (21:08)
[2020-02-22] MEDS: INSULIN GLARGINE, 100 UNIT/ML CARTRIDGE SQ SCH (21:21)
--- NOTE | 2020-02-22 21:21 | NUR ---
MS RN NOTE: NON-ADMINISTRATION OF LANTUS INSULIN 14UNITS SCHEDULED WAS HELD DUE TO BLOOD SUGAR RESULT 81MG/DL. WILL CONTINUE TO MONITOR.
[2020-02-23] MEDS: BLOOD SUGAR DIAGNOSTIC 1 EACH STRIP IN SCH ×6 (01:25→20:31)
[2020-02-23] MEDS: ALBUTEROL FS 2.5 MG/0.5 ML VIAL.NEB NEB PRN ×3 (03:38→22:50)
[2020-02-23] MEDS: IPRATROPIUM NEB FS 0.5 MG/2.5 ML AMPUL.NEB NEB PRN ×3 (03:38→22:50)
[2020-02-23] MEDS: GUAIFENESIN/CODEINE 10 ML UDC PO PRN (04:10)
[2020-02-23] MEDS: INSULIN REGULAR, HUMAN 100 UNIT/ML 3 ML VIAL SQ PRN ×3 (04:17→20:33)
--- NOTE | 2020-02-23 06:41 | NUR ---
MS RN CLOSING NOTES PATIENT IN BED AWAKE, ALERT AND ORIENTED X3. NO S/SX OF ACUTE RESPIRATORY DISTRESS NOTED. ON 02 @5LPM VIA NC, TOLERATING WELL. DENIES PAIN OR DISCOMFORT AT THIS TIME. IV ACCESS ON LAC #18G PATENT AND INTACT. ON RIGHT CHEST WALL PERMA CATHETER. REPOSITIONED FOR COMFORT. KEPT CLEAN AND DRY. SAFETY PRECAUTIONS IN PLACE AND MAINTAINED AT ALL TIMES. BED IN LOWEST LOCKED POSITION, HOB ELEVATED, SIDE RAILS UP X 2, CALL LIGHT AND TABLE WITHIN REACH. WILL ENDORSE TO DAY SHIFT NURSE FOR CONTINUITY OF CARE.
[2020-02-23 07:29] LABS: BASOPHILS # (AUTO) 0.1 /CMM (0.0-0.2); BASOPHILS % (AUTO) 0.5 % (0.0-2.0); EOSINOPHILS % (AUTO) 0.8 % (0.0-6.0); HEMATOCRIT 22 % (39-51); HEMOGLOBIN 7.2 g/dL (13.5-17.5); LYMPHOCYTES # (AUTO) 0.9 /CMM (0.8-4.8); LYMPHOCYTES % (AUTO) 7.9 % (20.0-44.0); MEAN CORPUSCULAR HGB CONC 32 g/dl (31.0-36.0); MEAN CORPUSCULAR VOLUME 91 fL (80-96); MONOCYTES % (AUTO) 9.4 % (2.0-12.0); NEUTROPHILS % (AUTO) 81.4 % (43.0-81.0); PLATELET COUNT (AUTO) 246 /CMM (150-450); RED BLOOD CELL COUNT(AUTO) 2.44 MIL/uL (4.5-6.0); WHITE BLOOD COUNT (AUTO) 11.1 K/uL (4.3-11.0)
--- NOTE | 2020-02-23 07:37 | NUR ---
MS/RN OPENING NOTE RECEIVED PATIENT FROM CORE MICROARCHITECT NURSE. PATIENT IS A/O X3, SLEEPING IN BED, EASILY WOKEN UP. NO ACUTE DISTRESS NOTED AT THIS TIME. ALL SAFETY MEASURES IN PLACE BED LOCKED AND IN LOWEST POSITION, CALL LIGHT WITHIN REACH, WILL CONTINUE TO MONITOR AN ENSURE SAFETY.
[2020-02-23] MEDS: PANTOPRAZOLE 40 MG TABLET.DR PO SCH (07:52)
[2020-02-23 08:00] VITALS: BP 121/66
[2020-02-23 08:42] LABS: CALCIUM, SERUM 7.7 mg/dL (8.5-10.1); CREATININE 1.7 mg/dL (0.6-1.3); MAGNESIUM 2.2 mg/dL (1.8-2.4); PHOSPHORUS 3.9 mg/dL (2.5-4.9); POTASSIUM 4.9 mmol/L (3.5-5.1)
[2020-02-23] MEDS: CIPROFLOXACIN HCL 0.3% 5 ML BOTTLE RIGHTEYE SCH ×2 (09:39→16:09)
[2020-02-23] MEDS: CLOTRIMAZOLE 1% 15 GM TUBE TP SCH ×2 (09:39→16:08)
[2020-02-23 16:00] VITALS: BP 118/57
--- NOTE | 2020-02-23 19:45 | NUR ---
MS RN CLOSING NOTES PATIENT IN BED AWAKE, ALERT AND ORIENTED X3. NO S/S OF ACUTE RESPIRATORY DISTRESS NOTED. ON 02 @5LPM VIA NC, TOLERATING WELL. DENIES PAIN OR DISCOMFORT AT THIS TIME. IV ACCESS ON LAC #18G PATENT AND INTACT. ON RIGHT CHEST WALL PERMA CATHETER. REPOSITIONED FOR COMFORT. KEPT CLEAN AND DRY. SAFETY PRECAUTIONS IN PLACE AND MAINTAINED AT ALL TIMES. BED IN LOWEST LOCKED POSITION, HOB ELEVATED, SIDE RAILS UP X 2, CALL LIGHT AND TABLE WITHIN REACH. WILL ENDORSE TO AUDIOLOGY ASSISTANT NURSE FOR CONTINUITY OF CARE.
[2020-02-23 20:00] VITALS: BP_SYST 116; BP_SYST 142; BP_DIAS 61; BP_DIAS 78
[2020-02-23] MEDS: INSULIN GLARGINE, 100 UNIT/ML CARTRIDGE SQ SCH (21:02)
[2020-02-23] MEDS: ACETAMINOPHEN 325 MG TABLET PO PRN (21:18)
[2020-02-23] MEDS: RIFAMPIN 600 MG in IV NS 0.9% 100 ML IV SCH (21:37)
[2020-02-24] MEDS: BLOOD SUGAR DIAGNOSTIC 1 EACH STRIP IN SCH ×6 (00:23→21:00)
[2020-02-24] MEDS: INSULIN REGULAR, HUMAN 100 UNIT/ML 3 ML VIAL SQ PRN ×6 (00:24→20:56)
[2020-02-24] MEDS: LORAZEPAM INJ 2 MG/ML VIAL IV PRN (01:39)
--- NOTE | 2020-02-24 01:43 | NUR ---
MS-RN NOTES: YELLING AND SCREAMING PATIENT CONTINUES ON YELLING AND SCREAMING. PT IS VERY DEMANDING AND NEEDY. ATIVAN 0.5ML IV GIVEN ORDERED. WILL CONTINUE TO MONITOR FOR PATIENT'S SAFETY.
--- NOTE | 2020-02-24 07:25 | NUR ---
MS RN CLOSING NOTES PATIENT IN BED AWAKE, ALERT AND ORIENTED X3. NO S/SX OF ACUTE RESPIRATORY DISTRESS NOTED. ON 02 @5LPM VIA NC, TOLERATING WELL. DENIES PAIN OR DISCOMFORT AT THIS TIME. IV ACCESS ON MIRIAM #22G PATENT AND INTACT. ON RIGHT CHEST WALL PERMA CATHETER. REPOSITIONED FOR COMFORT. KEPT CLEAN AND DRY. SAFETY PRECAUTIONS IN PLACE AND MAINTAINED AT ALL TIMES. BED IN LOWEST LOCKED POSITION, HOB ELEVATED, SIDE RAILS UP X 2, CALL LIGHT AND TABLE WITHIN REACH. WILL ENDORSE TO DAY SHIFT NURSE FOR CONTINUITY OF CARE.
[2020-02-24] MEDS: PANTOPRAZOLE 40 MG TABLET.DR PO SCH (07:38)
--- NOTE | 2020-02-24 07:52 | NUR ---
MS/RN OPENING NOTE RECEIVED PATIENT FROM ALIGNER NURSE. PATIENT IS A/O X3. NO ACUTE DISTRESS NOTED AT THIS TIME. ALL SAFETY MEASURES IN PLACE BED LOCKED AND IN LOWEST POSITION, CALL LIGHT WITHIN REACH, WILL CONTINUE TO MONITOR AN ENSURE SAFETY.
[2020-02-24 08:00] VITALS: BP 173/81
[2020-02-24 08:26] LABS: BASOPHILS % (AUTO) 0.5 % (0.0-2.0); EOSINOPHILS % (AUTO) 0.8 % (0.0-6.0); HEMATOCRIT 24 % (39-51); HEMOGLOBIN 7.9 g/dL (13.5-17.5); LYMPHOCYTES # (AUTO) 0.8 /CMM (0.8-4.8); LYMPHOCYTES % (AUTO) 7.3 % (20.0-44.0); MEAN CORPUSCULAR HGB CONC 33 g/dl (31.0-36.0); MEAN CORPUSCULAR VOLUME 91 fL (80-96); MONOCYTES # (AUTO) 1.1 /CMM (0.1-1.30); MONOCYTES % (AUTO) 10.3 % (2.0-12.0); NEUTROPHILS # (AUTO) 8.4 /CMM (1.8-8.9); NEUTROPHILS % (AUTO) 81.1 % (43.0-81.0); PLATELET COUNT (AUTO) 297 /CMM (150-450); RED BLOOD CELL COUNT(AUTO) 2.62 MIL/uL (4.5-6.0); WHITE BLOOD COUNT (AUTO) 10.3 K/uL (4.3-11.0)
[2020-02-24 08:41] LABS: CALCIUM, SERUM 7.8 mg/dL (8.5-10.1); CREATININE 1.6 mg/dL (0.6-1.3); MAGNESIUM 2.2 mg/dL (1.8-2.4); PHOSPHORUS 4.4 mg/dL (2.5-4.9); POTASSIUM 5.2 mmol/L (3.5-5.1)
[2020-02-24] MEDS: IPRATROPIUM NEB FS 0.5 MG/2.5 ML AMPUL.NEB NEB PRN ×3 (09:00→20:36)
[2020-02-24] MEDS: ALBUTEROL FS 2.5 MG/0.5 ML VIAL.NEB NEB PRN ×3 (09:00→20:36)
[2020-02-24] MEDS: CIPROFLOXACIN HCL 0.3% 5 ML BOTTLE RIGHTEYE SCH ×2 (09:08→16:32)
[2020-02-24] MEDS: CLOTRIMAZOLE 1% 15 GM TUBE TP SCH ×2 (09:08→16:31)
[2020-02-24 16:00] VITALS: BP 124/74
--- NOTE | 2020-02-24 19:05 | NUR ---
MS/RN CLOSING NOTES PATIENT IN BED AWAKE, ALERT AND ORIENTED X3. NO S/S OF ACUTE RESPIRATORY DISTRESS NOTED. ON OXYGEN @3LPM VIA NC, TOLERATING WELL. DENIES PAIN OR DISCOMFORT AT THIS TIME. IV ACCESS ON MIRIAM #22G PATENT AND INTACT. ON RIGHT CHEST WALL PERMA CATHETER. REPOSITIONED FOR COMFORT. KEPT CLEAN AND DRY. SAFETY PRECAUTIONS IN PLACE AND MAINTAINED AT ALL TIMES. BED IN LOWEST LOCKED POSITION, HOB ELEVATED, SIDE RAILS UP X 2, CALL LIGHT AND TABLE WITHIN REACH. WILL ENDORSE TO STEEL LAYER.
[2020-02-24 19:20] VITALS: BP 150/65
--- NOTE | 2020-02-24 19:36 | NUR ---
MS RN OPENING NOTES PT RECEIVED AT BEDSIDE. CALM AND COOPERATIVE. ALERT AND ORIENTED X3. PT ON ROOM AIR. NO SOB. EVEN AND UNLABORED BREATHING NOTED. LFA #22. PATENT, INTACT, FLUSHING WELL. MIRIAM #22. PATENT, INTACT, FLUSHING WELL. SAFETY PRECAUTIONS IN PLACE. BED LOCKED. BED ALARM ON. CALL LIGHT WITHIN REACH. WILL CONTINUE TO MONITOR. WILL CONTINUE PLAN OF CARE.
[2020-02-24] MEDS: RIFAMPIN 600 MG in IV NS 0.9% 100 ML IV SCH (21:58)
[2020-02-24] MEDS: INSULIN GLARGINE, 100 UNIT/ML CARTRIDGE SQ SCH (22:07)
[2020-02-25] MEDS: BLOOD SUGAR DIAGNOSTIC 1 EACH STRIP IN SCH ×6 (00:59→21:34)
[2020-02-25] MEDS: INSULIN REGULAR, HUMAN 100 UNIT/ML 3 ML VIAL SQ PRN ×3 (01:01→18:03)
[2020-02-25] MEDS: IPRATROPIUM NEB FS 0.5 MG/2.5 ML AMPUL.NEB NEB PRN ×4 (02:02→20:02)
[2020-02-25] MEDS: ALBUTEROL FS 2.5 MG/0.5 ML VIAL.NEB NEB PRN ×4 (02:02→20:02)
[2020-02-25 06:18] LABS: BASOPHILS % (AUTO) 0.4 % (0.0-2.0); EOSINOPHILS % (AUTO) 0.8 % (0.0-6.0); HEMATOCRIT 22 % (39-51); LYMPHOCYTES # (AUTO) 0.7 /CMM (0.8-4.8); LYMPHOCYTES % (AUTO) 6.7 % (20.0-44.0); MEAN CORPUSCULAR HGB CONC 33 g/dl (31.0-36.0); MEAN CORPUSCULAR VOLUME 91 fL (80-96); MONOCYTES # (AUTO) 1.2 /CMM (0.1-1.30); MONOCYTES % (AUTO) 11.2 % (2.0-12.0); NEUTROPHILS # (AUTO) 8.7 /CMM (1.8-8.9); NEUTROPHILS % (AUTO) 80.9 % (43.0-81.0); PLATELET COUNT (AUTO) 280 /CMM (150-450); RED BLOOD CELL COUNT(AUTO) 2.36 MIL/uL (4.5-6.0); WHITE BLOOD COUNT (AUTO) 10.8 K/uL (4.3-11.0)
[2020-02-25 07:12] LABS: CALCIUM, SERUM 7.9 mg/dL (8.5-10.1); CREATININE 1.6 mg/dL (0.6-1.3); MAGNESIUM 2.2 mg/dL (1.8-2.4); PHOSPHORUS 4.4 mg/dL (2.5-4.9); POTASSIUM 4.9 mmol/L (3.5-5.1)
--- NOTE | 2020-02-25 07:30 | NUR ---
RN MS NOTES PT IN BED, ASLEEP, EASY TO AROUSE, ALERT AND ORIENTED, NO COMPLAINT OF PAIN, ON O2 VIA N/C, O2 SAT OF 97%, BREATHING TREATMENT GIVEN NEEDED, PT'S IV LINES OUT, FINE WIRE DRAWER ABLE TO INSERT NEW LINE AT LEFT A/C 20G, ASSISTED WITH MEALS, ALL NEEDS ATTENDED. Addendum: 02/25/20 at 1905 by RANDY SANDRA RN ABOVE NOTE IS FOR 1800 AND NOT 0730.
[2020-02-25 08:00] VITALS: BP 135/78
[2020-02-25] MEDS: PANTOPRAZOLE 40 MG TABLET.DR PO SCH (08:37)
[2020-02-25] MEDS: CLOTRIMAZOLE 1% 15 GM TUBE TP SCH ×2 (08:43→18:06)
[2020-02-25] MEDS: CIPROFLOXACIN HCL 0.3% 5 ML BOTTLE RIGHTEYE SCH ×2 (08:43→18:06)
[2020-02-25] MEDS ORDERED: VANC1PIG IV ×2 (11:34→11:39)
[2020-02-25] MEDS ORDERED: IPRA0.2S9 NEB (11:34)
[2020-02-25] MEDS ORDERED: INSU100V28 SQ (11:34)
[2020-02-25] MEDS ORDERED: CIPR5DRO18 RIGHTEYE (11:34)
[2020-02-25] MEDS ORDERED: ALBU2.5V13 NEB (11:34)
[2020-02-25 16:00] VITALS: BP 128/80
--- NOTE | 2020-02-25 20:00 | NUR ---
RN NOTES: PT. REFUSED TO TAKE 1 UNIT PRBC , AND REFUSED CONSENT FOR BLOOD, ENCOURAGED , RISKS PANCHO EXPLAINED , PT. BEHAVIOUR VERU UNCCOPERTIVE , NON COMPLY , PT. STRONGLY REFUSED, CHARGE NURSE MADE AWAR ,
[2020-02-25 21:00] VITALS: BP_SYST 116; BP_SYST 132; BP_DIAS 70; BP_DIAS 78
[2020-02-25] MEDS: INSULIN GLARGINE, 100 UNIT/ML CARTRIDGE SQ SCH (21:41)
[2020-02-25] MEDS: RIFAMPIN 600 MG in IV NS 0.9% 100 ML IV SCH (22:04)
[2020-02-26] VITALS (29 sets, daily range): BP systolic 115–145; BP diastolic 59–90
[2020-02-26] MEDS: INSULIN REGULAR, HUMAN 100 UNIT/ML 3 ML VIAL SQ PRN ×5 (01:28→21:38)
[2020-02-26] MEDS: BLOOD SUGAR DIAGNOSTIC 1 EACH STRIP IN SCH ×6 (01:31→21:17)
[2020-02-26 05:47] LABS: ABG BASE EXCESS -2.2 mmol/L; ABG OXYGEN SATURATION 96.1 % (92.0-98.5); ABG PCO2 49.1 mmHg (35.0-45.0); ABG PH 7.308 (7.350-7.450); AaDO2 165.8 mmHg; COHb 1.3 % (0.5-1.5); MetHb 0.1 % (0.0-1.5); O2Hb 94.8 % (94.0-97.0); SITE, ABG Left Radial
--- NOTE | 2020-02-26 06:30 | NUR ---
RN NOTES : DR. PADILLA NOTIFIED OF MY FINDING PT. LATHEGIC , PALE, ABG DONE , ABG WAS ABNORMAL , PER DR. PADILLA PT. TRANSFER TO ICU FOR BIPAP , BS 172 MG/DL REPORT GIVEN TO ICU NURSE JOHANNY , PT. TRANSFER TO ICU VIA ACLS PT.TRANSFER TO ICU FOR CONTINUITY OF CARE . Addendum: 02/26/20 at 0759 by ROSSI THORPE RN PATIENT AWAKE, ABLE TO ANSWER QUESTIONS BUT RESTLESS, PATIENT PULLED HIS LEFT AC IV CATH, PATIENT IS HARD STICK, ICU NURSE WAS CALLED & INSERTED IV CATH TO LEFT SHOULDER & LEFT ARM BEFORE TRANSFERRING THE PATIENT TO ICU. PATIENT TOLERATED PROCEDURE WELL. ON O2 VIA FACE MASK @ 10 LPM INSTRUCTED BY MANAGER TRANSMISSION, VITALS NOTED UNDER SHORT FORM INTERVENTIONS. TRANSFERRED PATIENT TO ICU PER DR. PADILLA VIA ACLS PROTOCOL.
[2020-02-26] MEDS: PANTOPRAZOLE 40 MG TABLET.DR PO SCH (07:30)
[2020-02-26 08:45] LABS: ABG BASE EXCESS -0.9 mmol/L; ABG OXYGEN SATURATION 97.6 % (92.0-98.5); ABG PCO2 42.6 mmHg (35.0-45.0); ABG PH 7.373 (7.350-7.450); ABG PO2 102.1 mmHg (75.0-100.0); AaDO2 134.1 mmHg; COHb 0.8 % (0.5-1.5); MetHb 0.2 % (0.0-1.5); O2Hb 96.6 % (94.0-97.0); SITE, ABG Left Radial; VENT MODE, BG ST 20/5 40% RR16
[2020-02-26] MEDS: CLOTRIMAZOLE 1% 15 GM TUBE TP SCH ×2 (12:52→18:36)
[2020-02-26] MEDS: CIPROFLOXACIN HCL 0.3% 5 ML BOTTLE RIGHTEYE SCH ×2 (12:52→18:35)
[2020-02-26] MEDS: LORAZEPAM INJ 2 MG/ML VIAL IV PRN (14:27)
[2020-02-26] MEDS ORDERED: ALTEPLASE CATHFLO 2 MG/VIAL XX STA (17:46)
[2020-02-26] MEDS ORDERED: ALTEPLASE CATHFLO 2 MG/VIAL XX ONE (17:46)
[2020-02-26] MEDS ORDERED: VANCOMYCIN 1 GM in IV D5W 250 ML IV ONE (20:00)
[2020-02-26] MEDS: INSULIN GLARGINE, 100 UNIT/ML CARTRIDGE SQ SCH (21:50)
[2020-02-26] MEDS: RIFAMPIN 600 MG in IV NS 0.9% 100 ML IV SCH (21:52)
[2020-02-27] VITALS (45 sets, daily range): BP systolic 109–151; BP diastolic 59–88
[2020-02-27] MEDS: BLOOD SUGAR DIAGNOSTIC 1 EACH STRIP IN SCH ×6 (01:09→22:23)
[2020-02-27] MEDS: INSULIN REGULAR, HUMAN 100 UNIT/ML 3 ML VIAL SQ PRN ×3 (01:13→22:55)
[2020-02-27 08:05] LABS: BASOPHILS % (AUTO) 0.3 % (0.0-2.0); EOSINOPHILS % (AUTO) 0.6 % (0.0-6.0); HEMATOCRIT 22 % (39-51); HEMOGLOBIN 7.2 g/dL (13.5-17.5); LYMPHOCYTES # (AUTO) 0.9 /CMM (0.8-4.8); LYMPHOCYTES % (AUTO) 6.8 % (20.0-44.0); MEAN CORPUSCULAR HGB CONC 32 g/dl (31.0-36.0); MEAN CORPUSCULAR VOLUME 92 fL (80-96); MONOCYTES # (AUTO) 1.2 /CMM (0.1-1.30); MONOCYTES % (AUTO) 9.7 % (2.0-12.0); NEUTROPHILS # (AUTO) 10.3 /CMM (1.8-8.9); NEUTROPHILS % (AUTO) 82.6 % (43.0-81.0); PLATELET COUNT (AUTO) 342 /CMM (150-450); WHITE BLOOD COUNT (AUTO) 12.5 K/uL (4.3-11.0)
[2020-02-27 08:11] LABS: CREATININE 1.7 mg/dL (0.6-1.3); POTASSIUM 4.8 mmol/L (3.5-5.1)
[2020-02-27] MEDS: PANTOPRAZOLE 40 MG TABLET.DR PO SCH (08:40)
[2020-02-27] MEDS: CIPROFLOXACIN HCL 0.3% 5 ML BOTTLE RIGHTEYE SCH ×2 (08:45→17:06)
[2020-02-27] MEDS: CLOTRIMAZOLE 1% 15 GM TUBE TP SCH ×2 (08:46→17:07)
[2020-02-27] MEDS: LORAZEPAM INJ 2 MG/ML VIAL IV PRN ×3 (09:30→23:22)
[2020-02-27] MEDS ORDERED: FENTANYL CITRATE IV 1,250 MCG in IV NS 0.9% 225 ML IV PRN (09:30)
[2020-02-27] MEDS ORDERED: VANCOMYCIN 500 MG in IV D5W 100 ML IV ONE (16:00)
--- NOTE | 2020-02-27 18:23 | NUR ---
RN NOTES PT CONFUSED , YELLING AN SCREAMING OUT AT TIMES, VSS STABLE, NO SIGNIFICANT CHANGES NOTED ON THIS SHIFT, WILL ENDORSE TO EDGING MACHINE SETTER NURSE FOR CONTINUITY OF CARE .
--- NOTE | 2020-02-27 19:25 | NUR ---
RN NOTES REPORT GIVEN TO RANDELL PALOMO ON 3W FOR CONTINUITY OF CARE .
--- NOTE | 2020-02-27 19:26 | NUR ---
anthropometrist notes Received report from ICU nurse STACIA Zuniga.
--- NOTE | 2020-02-27 20:00 | NUR ---
wool hanker opening notes Received Pt from ICU nurse (Cheri) and two RT (Joaquín Montaño). Pt arrived at the unit with Cpap machine and ACLS protocol. Pt is alert and orientedx2-3, agitated easily. IV site at LFA# 22 is clean, intact and SL. IV site at L shoulder # 22 is clean, intact, flushes easily, SL. RCW permacath is clean, and intact. Tele monitor showed Sinus tachy hr at 107 bpm. Safety precautions is maintained. Bed at low position, brakes locked, side rails upX2, hob elevated and call light is within reach. Will continue to monitor. Addendum: 02/28/20 at 0357 by DAIJA LOCKHART RN B-pap machine not c-pap.
[2020-02-27] MEDS: ACETAMINOPHEN 325 MG TABLET PO PRN (21:11)
--- NOTE | 2020-02-27 21:11 | NUR ---
acquisitions logistics analyst notes Pt's temp is 100.F. oral. Administered tylenol 650 mg/po/prn as ordered for fever. Cooling measure is applied. Will continue to monitor.
[2020-02-27] MEDS: RIFAMPIN 600 MG in IV NS 0.9% 100 ML IV SCH (21:30)
[2020-02-27] MEDS: INSULIN GLARGINE, 100 UNIT/ML CARTRIDGE SQ SCH (22:54)
--- NOTE | 2020-02-27 23:22 | NUR ---
wire winding machine operator notes Pt is feeling anxious, screaming, yelling and undirectable. Administered ativan 1 mg/0.5 ml IV push as order. VS stable. Safety precautions is maintained. Will continue to monitor.
[2020-02-28] VITALS: BP 122/64
[2020-02-28] MEDS: BLOOD SUGAR DIAGNOSTIC 1 EACH STRIP IN SCH ×5 (00:25→17:16)
[2020-02-28] MEDS: INSULIN REGULAR, HUMAN 100 UNIT/ML 3 ML VIAL SQ PRN ×3 (00:29→13:19)
--- NOTE | 2020-02-28 00:47 | NUR ---
dental therapist notes Pt accidentally removed IV site at LFA# 22. Pt still have L shoulder # 22 is clean, intact and flushes well.
[2020-02-28 04:00] VITALS: BP 143/64
[2020-02-28] MEDS ORDERED: VANCOMYCIN 500 MG in IV D5W 100 ML IV PRN (06:00)
--- NOTE | 2020-02-28 07:00 | NUR ---
conventional mortgage underwriter closing notes Pt is resting in bed comfortably. Pt is alert and orientedx2-3, agitated easily. Respiration is on 4 L NC. No SOB. No S/S of distress noted. IV site at L shoulder # 22 is clean, intact, flushes easily, SL. RCW permacath is clean, and intact. Tele monitor showed Sinus rhytm hr at 80 bpm. Kept Pt clean,dry and comfortable. All needs met and attended. Safety precautions is maintained. Bed at low position, brakes locked, side rails upX2, hob elevated and call light is within reach. Will endorse to morning nurse for MESSI.
--- NOTE | 2020-02-28 07:50 | NUR ---
TELE/RN OPENING NOTES RECEIVED PATIENT ON BED. SLEEPING EASILY AROUSABLE BY NAME AND LIGHT TOUCH. PATIENT IN NO APPARENT RESPIRATORY DISTRESS NOTED. NO SIGN COMPLAINED OF PAIN NOTED AT THIS TIME. WILL CONTINUE TO MONITOR.
[2020-02-28 08:00] VITALS: BP 134/72
[2020-02-28] MEDS: PANTOPRAZOLE 40 MG TABLET.DR PO SCH (09:39)
[2020-02-28 09:40] LABS: CALCIUM, SERUM 7.7 mg/dL (8.5-10.1); CREATININE 1.9 mg/dL (0.6-1.3); POTASSIUM 4.9 mmol/L (3.5-5.1)
[2020-02-28 09:44] LABS: BASOPHILS # (AUTO) 0.1 /CMM (0.0-0.2); BASOPHILS % (AUTO) 0.8 % (0.0-2.0); EOSINOPHILS % (AUTO) 0.6 % (0.0-6.0); HEMATOCRIT 23 % (39-51); HEMOGLOBIN 7.2 g/dL (13.5-17.5); LYMPHOCYTES # (AUTO) 1.1 /CMM (0.8-4.8); LYMPHOCYTES % (AUTO) 8.2 % (20.0-44.0); MEAN CORPUSCULAR HGB CONC 32 g/dl (31.0-36.0); MEAN CORPUSCULAR VOLUME 93 fL (80-96); MONOCYTES # (AUTO) 1.5 /CMM (0.1-1.30); MONOCYTES % (AUTO) 11.3 % (2.0-12.0); NEUTROPHILS # (AUTO) 10.5 /CMM (1.8-8.9); NEUTROPHILS % (AUTO) 79.1 % (43.0-81.0); PLATELET COUNT (AUTO) 356 /CMM (150-450); RED BLOOD CELL COUNT(AUTO) 2.44 MIL/uL (4.5-6.0); WHITE BLOOD COUNT (AUTO) 13.3 K/uL (4.3-11.0)
[2020-02-28] MEDS: CLOTRIMAZOLE 1% 15 GM TUBE TP SCH ×2 (09:47→17:22)
[2020-02-28] MEDS: CIPROFLOXACIN HCL 0.3% 5 ML BOTTLE RIGHTEYE SCH ×2 (09:47→17:22)
[2020-02-28 12:00] VITALS: BP 126/62
[2020-02-28] MEDS ORDERED: ALBUMIN 25% 25 GM in PREMIX 1 EA IV PRN (14:00)
[2020-02-28 16:00] VITALS: BP 120/81
[2020-02-28] MEDS ORDERED: VANCOMYCIN 1 GM in IV D5W 250 ML IV ONE (17:00)
[2020-02-28] MEDS: ACETAMINOPHEN 325 MG TABLET PO PRN (17:37)
--- NOTE | 2020-02-28 18:45 | NUR ---
RN NOTES PATIENT ALERT AND ORIENTED X3. PATIENT IN NO APPARENT RESPIRATORY DISTRESS NOTED. NO COMPLAINED OF PAIN NOTED. PATIENT WAS GIVEN DISCHARGED INSTRUCTIONS AND PATIENT VERBALIZED UNDERSTANDING. PATIENT LEFT THE HOSPITAL IN MEDICALLY STABLE CONDITION. INFANT NANNY BY 2 EMT.
[2020-02-29] MEDS ORDERED: VANCOMYCIN 500 MG in IV D5W 100 ML IV PRN (06:00)
== END 2020-02-28 18:45 | DRG 721 ==
LOC: ER 06:19 → TRANSITION 10:23 → ICU 10:46 → TELE 02-08 21:08 → MED 02-12 12:57 → ICU 02-26 06:45 → TELE 02-27 19:52
PROVIDERS: ADMIT Nurse Practitioner Acute Care; ATTEND Internal Medicine
PROC: 05HY33Z Insertion of Infusion Device into Upper Vein, Percutaneous Approach (ICD-10-PCS; principal; 2020-02-05)
PROC: 06HY33Z Insertion of Infusion Device into Lower Vein, Percutaneous Approach (ICD-10-PCS; 2020-02-06)
PROC: 5A1D70Z Performance of Urinary Filtration, Intermittent, Less than 6 Hours Per Day (ICD-10-PCS; 2020-02-08)
PROC: 30233N1 Transfusion of Nonautologous Red Blood Cells into Peripheral Vein, Percutaneous Approach (ICD-10-PCS; 2020-02-10)
PROC: 05PYX3Z Removal of Infusion Device from Upper Vein, External Approach (ICD-10-PCS; 2020-02-18)
PROC: 0JH63XZ Insertion of Tunneled Vascular Access Device into Chest Subcutaneous Tissue and Fascia, Percutaneous Approach (ICD-10-PCS; 2020-02-21)
PROC: 06H033Z Insertion of Infusion Device into Inferior Vena Cava, Percutaneous Approach (ICD-10-PCS; 2020-02-21)
PROC: B519YZA Fluoroscopy of Inferior Vena Cava using Other Contrast, Guidance (ICD-10-PCS; 2020-02-21)
DX: T80.211A Bloodstream infection due to central venous catheter, initial encounter (principal); A41.02 Sepsis due to Methicillin resistant Staphylococcus aureus; G93.41 Metabolic encephalopathy; J15.212 Pneumonia due to Methicillin resistant Staphylococcus aureus; E11.22 Type 2 diabetes mellitus with diabetic chronic kidney disease; I12.0 Hypertensive chronic kidney disease with stage 5 chronic kidney disease or end stage renal disease; N18.6 End stage renal disease; Z99.2 Dependence on renal dialysis; T82.41XA Breakdown (mechanical) of vascular dialysis catheter, initial encounter; Y71.2 Prosthetic and other implants, materials and accessory cardiovascular devices associated with adverse incidents; E11.65 Type 2 diabetes mellitus with hyperglycemia; D63.1 Anemia in chronic kidney disease; J96.01 Acute respiratory failure with hypoxia; D72.823 Leukemoid reaction; E66.01 Morbid (severe) obesity due to excess calories; E78.5 Hyperlipidemia, unspecified; E87.2 Acidosis; H10.9 Unspecified conjunctivitis; Z95.1 Presence of aortocoronary bypass graft; I25.10 Atherosclerotic heart disease of native coronary artery without angina pectoris; J85.0 Gangrene and necrosis of lung; E80.6 Other disorders of bilirubin metabolism; N25.0 Renal osteodystrophy; R65.20 Severe sepsis without septic shock; Z20.822 Contact with and (suspected) exposure to COVID-19; Z68.30 Body mass index [BMI] 30.0-30.9, adult; I38 Endocarditis, valve unspecified; H02.402 Unspecified ptosis of left eyelid; J91.8 Pleural effusion in other conditions classified elsewhere; Y84.8 Other medical procedures as the cause of abnormal reaction of the patient, or of later complication, without mention of misadventure at the time of the procedure; Y92.009 Unspecified place in unspecified non-institutional (private) residence as the place of occurrence of the external cause; Z79.4 Long term (current) use of insulin; Z82.49 Family history of ischemic heart disease and other diseases of the circulatory system; Z87.891 Personal history of nicotine dependence; Z83.3 Family history of diabetes mellitus
CPT/HCPCS: 36410; 36415; 36600; 70450-TC; 71045-TC; 71250-TC; 80048-TC; 80053-TC; 80061-TC; 80170-TC; 80202-TC; 82248-TC; 82272-TC; 82550-TC; 82728-TC; 82803-TC; 82962-TC; 83540-TC; 83605-TC; 83615-TC; 83735-TC; 83880; 84100-TC; 84443-TC; 84484-TC; 85025-TC; 85378-TC; 85730-TC; 86140-TC; 86706; 86850-TC; 87040-TC; 87081-TC; 87340; 90935-TC; 93307-TC; 93970-TC; 94003-TC; 94660; 94799-TC; A4216; A6403; C1750; C1751; C9803; G0378; J0692; J1100; J1170; J1580; J1644; J1815; J2060; J2543; J2997; J3010; J3370; J3490; J7030; J7040; J7050; J7060; P9016-BL; P9047; U0003